=== PATIENT | male | born 1950 | race Caucasian/White ===

== ENCOUNTER 2017-11-04 09:01 | Inpatient (IN) ==
[~2017-11-04 09:01] MED LIST: ACETAMINOPHEN 325 MG TABLET PO PRN; ASPIRIN 325 MG TABLET PO ONE; ASPIRIN EC 81 MG TABLET PO SCH; CARVEDILOL 3.125 MG TABLET PO SCH; DIAZEPAM 5 MG TABLET PO ONE; DOCUSATE SODIUM 100 MG CAPSULE PO SCH; FUROSEMIDE 40 MG TABLET PO SCH; LOSARTAN 25 MG TABLET PO SCH; MAGNESIUM OXIDE 400 MG TABLET PO SCH; NICOTINE 21 MG/24 HR PATCH TRANSDERM PRN; ONDANSETRON 4 MG/2 ML VIAL IV PRN; PANTOPRAZOLE 40 MG TABLET PO SCH; POTASSIUM CHLORIDE 20 MEQ TABLET PO SCH; SODIUM CHLORIDE 0.45% 1,000 ML IV SCH; SPIRONOLACTONE 25 MG TABLET PO SCH; ZALEPLON 5 MG CAPSULE PO PRN; diphenhydrAMINE CAP 25 MG CAPSULE PO ONE
[2017-11-04] MEDS ORDERED: FUROSEMIDE 40 MG TABLET PO SCH (09:30)
[2017-11-04] MEDS ORDERED: SODIUM CHLORIDE 0.45% 1,000 ML IV SCH ×2 (09:30→12:30)
[2017-11-04] MEDS ORDERED: ONDANSETRON 4 MG/2 ML VIAL IV PRN (09:31)
[2017-11-04] MEDS ORDERED: NICOTINE 21 MG/24 HR PATCH TRANSDERM PRN (09:31)
[2017-11-04] MEDS ORDERED: ACETAMINOPHEN 325 MG TABLET PO PRN (09:31)
[2017-11-04 10:32] LABS: Basophils % 0.3 % (0.0-0.8); Eosinophils # 0.2 10*3/uL (0.0-0.87); Eosinophils % 3.1 % (0.00-10.9); Hematocrit 42.3 VOL% (42.0-52.0); Hemoglobin 13.3 GM/DL (14.0-18.0); Immature Granulocytes % 0.3 %; Immature Granulocytes Absolute 0.02 #; Lymphocytes # 1.1 10*3/uL (1.4-4.0); Lymphocytes % 15.3 % (21.2-54.2); Mean Corpuscular HGB Conc 31.4 GM/DL (32-36); Mean Corpuscular Hemoglobin 27 PG (27-34); Mean Corpuscular Volume 85.5 FL (87-102); Mean Platelet Volume 9.5 FL (9.6-12.0); Monocytes # 0.6 10*3/uL (0.11-0.8); Monocytes % 8.2 % (1.7-12.7); Neutrophils # 5.3 10*3/uL (1.4-7.4); Neutrophils % 72.8 % (38.7-73.9); Platelet Count 222 T/CUMM (130-400); Red Blood Count 4.95 MC/CUMM (3.8-5.5); Red Cell Distribution Width 17.2 % (9.3-17.3); White Blood Count 7.2 T/CUMM (4-12)
[2017-11-04] MEDS ORDERED: DIAZEPAM 5 MG TABLET ONE (10:38)
[2017-11-04] MEDS ORDERED: ASPIRIN 325 MG TABLET ONE (10:39)
[2017-11-04] MEDS ORDERED: diphenhydrAMINE CAP 25 MG CAPSULE ONE (10:39)
[2017-11-04 11:26] LABS: Calcium 8.9 MG/DL (8.5-10.1); Osmolality,Calculated 283.3 MOS/KG (273-304); Potassium 3.5 MMOL/L (3.5-5.1); Risk Ratio 2.35; Thyroid Stimulating Hormone 1.29 uIU/ml (0.358-3.74); VLDL CHOLESTEROL 13.8 MG/DL
[2017-11-04] MEDS ORDERED: HEPARIN/NACL 0.9% 2 UNITS/ML 2,000 ML IV ONE (11:26)
[2017-11-04] MEDS ORDERED: fentaNYL 100 MCG/2 ML VIAL ONE (11:42)
[2017-11-04] MEDS ORDERED: LIDOCAINE 1% 20 ML VIAL ONE (11:42)
[2017-11-04] MEDS ORDERED: MIDAZOLAM 2 MG/2 ML VIAL ONE (11:42)
[2017-11-04] MEDS ORDERED: ALBUTEROL/IPRATROPIUM 3 ML NEB RESP TX SCH (13:00)
[2017-11-04] MEDS: ALBUTEROL/IPRATROPIUM 3 ML NEB RESP TX SCH ×2 (13:45→19:05)
[2017-11-04] MEDS: CLORAZEPATE 3.75 MG TABLET PO PRN (18:12)
[2017-11-04] MEDS: ATORVASTATIN 80 MG TABLET PO SCH (20:58)
[2017-11-04] MEDS: DOCUSATE SODIUM 100 MG CAPSULE PO SCH (20:58)
[2017-11-04] MEDS: ZALEPLON 5 MG CAPSULE PO PRN (20:58)
[2017-11-04] MEDS: MAGNESIUM OXIDE 400 MG TABLET PO SCH (20:58)
[2017-11-04] MEDS: CARVEDILOL 3.125 MG TABLET PO SCH (20:58)
[2017-11-04] MEDS: BUDESONIDE/FORMOTEROL 160-4.5 INHALER 6 GM INH SCH (20:59)
[2017-11-04] MEDS ORDERED: ATORVASTATIN 80 MG TABLET PO SCH (21:00)
[2017-11-05] MEDS: ALBUTEROL/IPRATROPIUM 3 ML NEB RESP TX SCH ×4 (00:10→20:33)
[2017-11-05 01:33] LABS: Basophils % 0.3 % (0.0-0.8); Eosinophils # 0.5 10*3/uL (0.0-0.87); Eosinophils % 7.1 % (0.00-10.9); Hematocrit 36.6 VOL% (42.0-52.0); Hemoglobin 11.8 GM/DL (14.0-18.0); Immature Granulocytes % 0.4 %; Immature Granulocytes Absolute 0.03 #; Lymphocytes # 1.4 10*3/uL (1.4-4.0); Lymphocytes % 18.6 % (21.2-54.2); Mean Corpuscular HGB Conc 32.2 GM/DL (32-36); Mean Corpuscular Hemoglobin 27 PG (27-34); Mean Corpuscular Volume 84.9 FL (87-102); Mean Platelet Volume 9.8 FL (9.6-12.0); Monocytes # 0.5 10*3/uL (0.11-0.8); Monocytes % 7.1 % (1.7-12.7); Neutrophils % 66.5 % (38.7-73.9); Platelet Count 219 T/CUMM (130-400); Red Blood Count 4.31 MC/CUMM (3.8-5.5); Red Cell Distribution Width 17.2 % (9.3-17.3); White Blood Count 7.5 T/CUMM (4-12)
[2017-11-05 01:55] LABS: Calcium 8.2 MG/DL (8.5-10.1); Osmolality,Calculated 283.3 MOS/KG (273-304); Potassium 4.2 MMOL/L (3.5-5.1)
[2017-11-05 01:58] LABS: Albumin 2.7 G/DL (3.4-5.0); Bilirubin,Direct 0.18 MG/DL (0.0-0.20); Bilirubin,Indirect 0.3 MG/DL (0.0-1.0); Bilirubin,Total 0.5 MG/DL (0.2-1.0); Total Protein 5.2 G/DL (6.4-8.3)
[2017-11-05] MEDS ORDERED: FUROSEMIDE 40 MG/4 ML VIAL IV ONE ×2 (02:48→04:37)
[2017-11-05] MEDS ORDERED: hydrALAZINE 20 MG/1 ML VIAL IV ONE (02:48)
[2017-11-05] MEDS ORDERED: hydrALAZINE 20 MG/1 ML VIAL IV PRN (02:49)
[2017-11-05] MEDS ORDERED: FUROSEMIDE 40 MG/4 ML VIAL ONE (02:51)
[2017-11-05] MEDS ORDERED: LEVALBUTEROL 1.25 MG/3 ML NEB RESP TX PRN (03:05)
[2017-11-05] MEDS: CLORAZEPATE 3.75 MG TABLET PO PRN ×3 (03:20→21:44)
[2017-11-05 03:27] LABS: ABG Base Excess 4.9 MMOL/L (-2.5-2.5); ABG HCO3 28.8 MMOL/L (20-26); ABG Oxygen Saturation 94.8 % (95-100); ABG PCO2 67.6 MM HG (35-48); ABG PH 7.309 (7.35-7.45); ABG PO2 77.8 MM HG (80-95); ABG TCO2 29.9 MMOL/L (23-27)
[2017-11-05 03:38] LABS: Calcium 8.6 MG/DL (8.5-10.1); Osmolality,Calculated 283.4 MOS/KG (273-304); Potassium 4.3 MMOL/L (3.5-5.1)
[2017-11-05] MEDS ORDERED: NITROGLYCERIN SL 0.4 MG TABLET SL PRN (04:58)
[2017-11-05] MEDS ORDERED: ASPIRIN CHEW 81 MG TABLET PO ONE (04:58)
[2017-11-05] MEDS ORDERED: NITROGLYCERIN DRIP 50 MG/250 ML BOTTLE IV ONE (05:05)
[2017-11-05] MEDS: NITROGLYCERIN DRIP 50 MG/250 ML BOTTLE IV SCH (05:10)
[2017-11-05 06:24] LABS: Basophils % 0.4 % (0.0-0.8); Eosinophils # 0.7 10*3/uL (0.0-0.87); Eosinophils % 5.9 % (0.00-10.9); Hematocrit 43.6 VOL% (42.0-52.0); Hemoglobin 13.4 GM/DL (14.0-18.0); Immature Granulocytes % 0.4 %; Immature Granulocytes Absolute 0.04 #; Lymphocytes # 1.1 10*3/uL (1.4-4.0); Lymphocytes % 9.7 % (21.2-54.2); Mean Corpuscular HGB Conc 30.7 GM/DL (32-36); Mean Corpuscular Hemoglobin 27 PG (27-34); Mean Corpuscular Volume 87.4 FL (87-102); Mean Platelet Volume 9.5 FL (9.6-12.0); Monocytes # 0.8 10*3/uL (0.11-0.8); Monocytes % 7.5 % (1.7-12.7); Neutrophils # 8.5 10*3/uL (1.4-7.4); Neutrophils % 76.1 % (38.7-73.9); Platelet Count 245 T/CUMM (130-400); Red Blood Count 4.99 MC/CUMM (3.8-5.5); Red Cell Distribution Width 17.2 % (9.3-17.3); White Blood Count 11.2 T/CUMM (4-12)
[2017-11-05 06:48] LABS: Albumin 3.4 G/DL (3.4-5.0); Calcium 8.9 MG/DL (8.5-10.1); Osmolality,Calculated 281.4 MOS/KG (273-304); Potassium 4.3 MMOL/L (3.5-5.1); Total Protein 6.5 G/DL (6.4-8.3)
[2017-11-05] MEDS: CARVEDILOL 3.125 MG TABLET PO SCH ×2 (08:08→21:44)
[2017-11-05] MEDS: FUROSEMIDE 40 MG/4 ML VIAL IV SCH ×2 (08:08→16:33)
[2017-11-05] MEDS: PANTOPRAZOLE 40 MG TABLET PO SCH (08:08)
[2017-11-05] MEDS: MAGNESIUM OXIDE 400 MG TABLET PO SCH ×2 (08:08→21:44)
[2017-11-05] MEDS: LOSARTAN 25 MG TABLET PO SCH (08:09)
[2017-11-05] MEDS: POTASSIUM CHLORIDE 20 MEQ TABLET PO SCH (08:09)
[2017-11-05] MEDS: ENOXAPARIN 40 MG/0.4 ML SYRINGE SUBCUT SCH (08:09)
[2017-11-05] MEDS: SPIRONOLACTONE 25 MG TABLET PO SCH (08:09)
[2017-11-05] MEDS: ASPIRIN EC 81 MG TABLET PO SCH (08:09)
[2017-11-05] MEDS: DOCUSATE SODIUM 100 MG CAPSULE PO SCH ×2 (09:10→21:44)
[2017-11-05 10:50] LABS: Apearance,Urine CLEAR (Clear); Bilirubin,Urine Negative (Negative); Blood, Urine Moderate mg/dL (Negative); Glucose,Urine (UA) Negative (Negative); Ketones,Urine Negative (Negative); Nitrite,Urine Negative (Negative); Protein,Urine Negative; RBC,Urine 19 /HPF (0-4); Urine Color Colorless (Yellow); Urine Specific Gravity 1.004 (1.001-1.035); Urine Urobilinogen < 2.0 EU/DL (0.2-1.0); WBC,Urine <1 /HPF (0-6)
[2017-11-05] MEDS: BUDESONIDE/FORMOTEROL 160-4.5 INHALER 6 GM INH SCH ×2 (12:15→21:44)
[2017-11-05] MEDS: methylPREDNISolone SOD SUC 40 MG/1 ML VIAL IV SCH ×2 (12:16→18:38)
[2017-11-05] MEDS: ATORVASTATIN 80 MG TABLET PO SCH (21:44)
[2017-11-05] MEDS: ZALEPLON 5 MG CAPSULE PO PRN (21:44)
[2017-11-06] MEDS: ALBUTEROL/IPRATROPIUM 3 ML NEB RESP TX SCH ×4 (00:16→19:14)
[2017-11-06] MEDS: methylPREDNISolone SOD SUC 40 MG/1 ML VIAL IV SCH ×3 (02:36→19:45)
[2017-11-06 05:07] LABS: Hematocrit 35.2 VOL% (42.0-52.0); Hemoglobin 11.1 GM/DL (14.0-18.0); Immature Granulocytes % 0.5 %; Immature Granulocytes Absolute 0.04 #; Lymphocytes # 0.6 10*3/uL (1.4-4.0); Lymphocytes % 7.1 % (21.2-54.2); Mean Corpuscular HGB Conc 31.5 GM/DL (32-36); Mean Corpuscular Hemoglobin 27 PG (27-34); Mean Corpuscular Volume 85.2 FL (87-102); Mean Platelet Volume 9.5 FL (9.6-12.0); Monocytes # 0.2 10*3/uL (0.11-0.8); Monocytes % 2.8 % (1.7-12.7); Neutrophils # 7.1 10*3/uL (1.4-7.4); Neutrophils % 89.6 % (38.7-73.9); Platelet Count 197 T/CUMM (130-400); Red Blood Count 4.13 MC/CUMM (3.8-5.5); Red Cell Distribution Width 16.9 % (9.3-17.3); White Blood Count 7.9 T/CUMM (4-12)
[2017-11-06] MEDS: NITROGLYCERIN DRIP 50 MG/250 ML BOTTLE IV SCH (05:41)
[2017-11-06 05:44] LABS: Calcium 8.4 MG/DL (8.5-10.1); Osmolality,Calculated 285.4 MOS/KG (273-304); Potassium 4.2 MMOL/L (3.5-5.1)
[2017-11-06] MEDS: ENOXAPARIN 40 MG/0.4 ML SYRINGE SUBCUT SCH (07:39)
[2017-11-06] MEDS: CLORAZEPATE 3.75 MG TABLET PO PRN ×2 (07:39→20:53)
[2017-11-06] MEDS: FUROSEMIDE 40 MG/4 ML VIAL IV SCH ×2 (07:39→16:32)
[2017-11-06] MEDS: DOCUSATE SODIUM 100 MG CAPSULE PO SCH ×2 (09:28→20:48)
[2017-11-06] MEDS: MAGNESIUM OXIDE 400 MG TABLET PO SCH ×2 (09:28→20:49)
[2017-11-06] MEDS: SPIRONOLACTONE 25 MG TABLET PO SCH (09:28)
[2017-11-06] MEDS: ASPIRIN EC 81 MG TABLET PO SCH (09:28)
[2017-11-06] MEDS: PANTOPRAZOLE 40 MG TABLET PO SCH (09:28)
[2017-11-06] MEDS: LOSARTAN 25 MG TABLET PO SCH (09:28)
[2017-11-06] MEDS: CARVEDILOL 3.125 MG TABLET PO SCH (09:28)
[2017-11-06] MEDS: POTASSIUM CHLORIDE 20 MEQ TABLET PO SCH (09:29)
[2017-11-06] MEDS: BUDESONIDE/FORMOTEROL 160-4.5 INHALER 6 GM INH SCH ×2 (09:31→20:50)
[2017-11-06] MEDS: ISOSORBIDE MONONITRATE 30 MG TABLET PO SCH (11:21)
[2017-11-06] MEDS: CARVEDILOL 6.25 MG TABLET PO SCH (20:49)
[2017-11-06] MEDS: ATORVASTATIN 80 MG TABLET PO SCH (20:49)
[2017-11-06] MEDS: ZALEPLON 5 MG CAPSULE PO PRN (22:12)
[2017-11-07] MEDS: ALBUTEROL/IPRATROPIUM 3 ML NEB RESP TX SCH ×4 (01:43→18:30)
[2017-11-07 02:45] LABS: Hematocrit 33.8 VOL% (42.0-52.0); Immature Granulocytes % 0.5 %; Immature Granulocytes Absolute 0.04 #; Lymphocytes # 0.5 10*3/uL (1.4-4.0); Lymphocytes % 5.5 % (21.2-54.2); Mean Corpuscular HGB Conc 32.5 GM/DL (32-36); Mean Corpuscular Hemoglobin 27 PG (27-34); Mean Corpuscular Volume 83.9 FL (87-102); Monocytes # 0.2 10*3/uL (0.11-0.8); Monocytes % 2.1 % (1.7-12.7); Neutrophils # 7.6 10*3/uL (1.4-7.4); Neutrophils % 91.9 % (38.7-73.9); Platelet Count 210 T/CUMM (130-400); Red Blood Count 4.03 MC/CUMM (3.8-5.5); Red Cell Distribution Width 16.9 % (9.3-17.3); White Blood Count 8.3 T/CUMM (4-12)
[2017-11-07] MEDS: methylPREDNISolone SOD SUC 40 MG/1 ML VIAL IV SCH ×3 (02:57→18:27)
[2017-11-07 03:38] LABS: Band Neutrophils 3 % (0-10); Lymphocytes 3 % (20-55); Segmented Neutrophils 94 % (50-85); Total Cells Counted 100
[2017-11-07 03:41] LABS: Elliptocytes 1+; Hypochromasia 1+
[2017-11-07 03:42] LABS: Platelet Estimate Normal
[2017-11-07 03:52] LABS: Calcium 8.6 MG/DL (8.5-10.1); Osmolality,Calculated 291.5 MOS/KG (273-304); Potassium 4.5 MMOL/L (3.5-5.1)
[2017-11-07] MEDS: ENOXAPARIN 40 MG/0.4 ML SYRINGE SUBCUT SCH (08:37)
[2017-11-07] MEDS: MAGNESIUM OXIDE 400 MG TABLET PO SCH ×2 (08:38→21:09)
[2017-11-07] MEDS: LOSARTAN 25 MG TABLET PO SCH (08:38)
[2017-11-07] MEDS: SPIRONOLACTONE 25 MG TABLET PO SCH (08:38)
[2017-11-07] MEDS: ISOSORBIDE MONONITRATE 30 MG TABLET PO SCH (08:38)
[2017-11-07] MEDS: CARVEDILOL 6.25 MG TABLET PO SCH ×2 (08:38→21:09)
[2017-11-07] MEDS: DOCUSATE SODIUM 100 MG CAPSULE PO SCH ×2 (08:38→21:09)
[2017-11-07] MEDS: ASPIRIN EC 81 MG TABLET PO SCH (08:38)
[2017-11-07] MEDS: POTASSIUM CHLORIDE 20 MEQ TABLET PO SCH (08:38)
[2017-11-07] MEDS: PANTOPRAZOLE 40 MG TABLET PO SCH (08:39)
[2017-11-07] MEDS: BUDESONIDE/FORMOTEROL 160-4.5 INHALER 6 GM INH SCH ×2 (08:39→21:13)
[2017-11-07] MEDS: FUROSEMIDE 40 MG/4 ML VIAL IV SCH ×2 (08:46→17:04)
[2017-11-07] MEDS: ZALEPLON 5 MG CAPSULE PO PRN (21:09)
[2017-11-07] MEDS: ATORVASTATIN 80 MG TABLET PO SCH (21:09)
[2017-11-07] MEDS: CLORAZEPATE 3.75 MG TABLET PO PRN (21:09)
[2017-11-08] MEDS: ALBUTEROL/IPRATROPIUM 3 ML NEB RESP TX SCH ×4 (03:06→19:24)
[2017-11-08] MEDS: methylPREDNISolone SOD SUC 40 MG/1 ML VIAL IV SCH ×3 (05:33→21:15)
[2017-11-08 06:15] LABS: Hematocrit 35.6 VOL% (42.0-52.0); Immature Granulocytes % 0.3 %; Immature Granulocytes Absolute 0.03 #; Lymphocytes # 0.7 10*3/uL (1.4-4.0); Lymphocytes % 7.5 % (21.2-54.2); Mean Corpuscular HGB Conc 30.9 GM/DL (32-36); Mean Corpuscular Hemoglobin 27 PG (27-34); Mean Corpuscular Volume 85.8 FL (87-102); Mean Platelet Volume 10.1 FL (9.6-12.0); Monocytes # 0.6 10*3/uL (0.11-0.8); Neutrophils # 8.1 10*3/uL (1.4-7.4); Neutrophils % 86.2 % (38.7-73.9); Platelet Count 225 T/CUMM (130-400); Red Blood Count 4.15 MC/CUMM (3.8-5.5); Red Cell Distribution Width 16.9 % (9.3-17.3); White Blood Count 9.4 T/CUMM (4-12)
[2017-11-08 06:39] LABS: Calcium 8.9 MG/DL (8.5-10.1); Osmolality,Calculated 295.3 MOS/KG (273-304); Potassium 4.6 MMOL/L (3.5-5.1)
[2017-11-08] MEDS: FUROSEMIDE 40 MG/4 ML VIAL IV SCH ×2 (08:50→16:32)
[2017-11-08] MEDS: DOCUSATE SODIUM 100 MG CAPSULE PO SCH ×2 (08:52→21:15)
[2017-11-08] MEDS: PANTOPRAZOLE 40 MG TABLET PO SCH (08:52)
[2017-11-08] MEDS: ENOXAPARIN 40 MG/0.4 ML SYRINGE SUBCUT SCH (08:52)
[2017-11-08] MEDS: ISOSORBIDE MONONITRATE 30 MG TABLET PO SCH (08:52)
[2017-11-08] MEDS: CARVEDILOL 6.25 MG TABLET PO SCH ×2 (08:52→21:15)
[2017-11-08] MEDS: ASPIRIN EC 81 MG TABLET PO SCH (08:52)
[2017-11-08] MEDS: MAGNESIUM OXIDE 400 MG TABLET PO SCH ×2 (08:52→21:15)
[2017-11-08] MEDS: POTASSIUM CHLORIDE 20 MEQ TABLET PO SCH (08:53)
[2017-11-08] MEDS: SPIRONOLACTONE 25 MG TABLET PO SCH (08:53)
[2017-11-08] MEDS: LOSARTAN 25 MG TABLET PO SCH (08:53)
[2017-11-08] MEDS ORDERED: TAMSULOSIN 0.4 MG CAPSULE PO ONE (11:40)
[2017-11-08] MEDS: BUDESONIDE/FORMOTEROL 160-4.5 INHALER 6 GM INH SCH ×2 (12:19→21:17)
[2017-11-08] MEDS: CLORAZEPATE 3.75 MG TABLET PO PRN (19:53)
[2017-11-08] MEDS: ZALEPLON 5 MG CAPSULE PO PRN (21:15)
[2017-11-08] MEDS: TAMSULOSIN 0.4 MG CAPSULE PO SCH (21:15)
[2017-11-08] MEDS: ATORVASTATIN 80 MG TABLET PO SCH (21:15)
[2017-11-09] MEDS: ALBUTEROL/IPRATROPIUM 3 ML NEB RESP TX SCH ×3 (00:40→13:05)
[2017-11-09 03:23] LABS: Hematocrit 34.8 VOL% (42.0-52.0); Hemoglobin 11.3 GM/DL (14.0-18.0); Immature Granulocytes % 0.5 %; Immature Granulocytes Absolute 0.04 #; Lymphocytes # 0.4 10*3/uL (1.4-4.0); Lymphocytes % 5.2 % (21.2-54.2); Mean Corpuscular HGB Conc 32.5 GM/DL (32-36); Mean Corpuscular Hemoglobin 27 PG (27-34); Mean Corpuscular Volume 83.9 FL (87-102); Mean Platelet Volume 10.6 FL (9.6-12.0); Monocytes # 0.3 10*3/uL (0.11-0.8); Monocytes % 3.7 % (1.7-12.7); Neutrophils % 90.6 % (38.7-73.9); Platelet Count 228 T/CUMM (130-400); Red Blood Count 4.15 MC/CUMM (3.8-5.5); Red Cell Distribution Width 16.8 % (9.3-17.3); White Blood Count 7.8 T/CUMM (4-12)
[2017-11-09 04:04] LABS: Calcium 8.7 MG/DL (8.5-10.1); Osmolality,Calculated 296.3 MOS/KG (273-304); Potassium 4.6 MMOL/L (3.5-5.1)
[2017-11-09 04:53] LABS: Band Neutrophils 2 % (0-10); Giant Platelets Few; Hypochromasia 1+; Lymphocytes 5 % (20-55); Platelet Estimate Adequate; Segmented Neutrophils 89 % (50-85); Total Cells Counted 100
[2017-11-09 04:54] LABS: Ovalocytes Slight
[2017-11-09] MEDS: ENOXAPARIN 40 MG/0.4 ML SYRINGE SUBCUT SCH (08:49)
[2017-11-09] MEDS: methylPREDNISolone SOD SUC 40 MG/1 ML VIAL IV SCH (08:49)
[2017-11-09] MEDS: FUROSEMIDE 40 MG/4 ML VIAL IV SCH (08:50)
[2017-11-09] MEDS: MAGNESIUM OXIDE 400 MG TABLET PO SCH (08:51)
[2017-11-09] MEDS: ISOSORBIDE MONONITRATE 30 MG TABLET PO SCH (08:51)
[2017-11-09] MEDS: POTASSIUM CHLORIDE 20 MEQ TABLET PO SCH (08:51)
[2017-11-09] MEDS: SPIRONOLACTONE 25 MG TABLET PO SCH (08:51)
[2017-11-09] MEDS: TAMSULOSIN 0.4 MG CAPSULE PO SCH (08:52)
[2017-11-09] MEDS: CARVEDILOL 6.25 MG TABLET PO SCH (08:52)
[2017-11-09] MEDS: DOCUSATE SODIUM 100 MG CAPSULE PO SCH (08:52)
[2017-11-09] MEDS: ASPIRIN EC 81 MG TABLET PO SCH (08:52)
[2017-11-09] MEDS: BUDESONIDE/FORMOTEROL 160-4.5 INHALER 6 GM INH SCH (09:00)
[2017-11-09] MEDS: LOSARTAN 25 MG TABLET PO SCH (14:12)
[2017-11-09] MEDS: PANTOPRAZOLE 40 MG TABLET PO SCH (14:12)
[2017-11-09] MEDS ORDERED: FUROSEMIDE 40 MG TABLET PO SCH (16:00)
[2017-11-09 16:29] VITALS: BP 144/62
== END 2017-11-09 16:30 | disposition home or self-care (01) | DRG 286 ==
LOC: N.TELEN 09:01 → N.CL 09:01 → EDSTATUS 11:00 → N.TELEN 14:49 → N.CC 11-05 05:12 → N.TELES 11-06 21:52
PROVIDERS: ADMIT Internal Medicine Cardiovascular Disease; ATTEND Internal Medicine Cardiovascular Disease

== ENCOUNTER 2019-03-23 05:11 | Inpatient (IN) ==
[2019-03-22 12:14] LABS: Basophils # 0.1 10*3/uL (0.0-0.2); Basophils % 0.8 % (0.0-0.8); Eosinophils # 0.5 10*3/uL (0.0-0.87); Eosinophils % 7.6 % (0.00-10.9); Hematocrit 35.8 VOL% (42.0-52.0); Immature Granulocytes % 0.3 %; Immature Granulocytes Absolute 0.02 #; Lymphocytes # 1.4 10*3/uL (1.4-4.0); Lymphocytes % 23.5 % (21.2-54.2); Mean Corpuscular HGB Conc 30.7 GM/DL (32-36); Mean Corpuscular Volume 95.2 FL (87-102); Mean Platelet Volume 9.4 FL (9.6-12.0); Monocytes % 8.6 % (1.7-12.7); Neutrophils % 59.2 % (38.7-73.9); Platelet Count 184 T/CUMM (130-400); Red Blood Count 3.76 MC/CUMM (3.8-5.5); Red Cell Distribution Width 13.8 % (9.3-17.3); White Blood Count 5.9 T/CUMM (4-12)
[2019-03-22 12:25] LABS: PT Patient Result 10.9 SECS; Partial Thromboplastin Time 27.6 SECS (0-40)
[2019-03-22 12:29] LABS: Apearance,Urine CLEAR (Clear); Bilirubin,Urine Negative (Negative); Blood, Urine Negative (Negative); Glucose,Urine (UA) Negative (Negative); Ketones,Urine Negative (Negative); Nitrite,Urine Negative (Negative); Protein,Urine Negative; Squamous Epithelial Cell,Urine Occasional /HPF (0-10); Urine Color Yellow (Yellow); Urine Specific Gravity 1.016 (1.001-1.035); Urine Urobilinogen < 2.0 EU/DL (0.2-1.0); WBC,Urine <1 /HPF (0-6)
[2019-03-22 13:00] LABS: Calcium 9.2 MG/DL (8.5-10.1); Osmolality,Calculated 285.3 MOS/KG (273-304)
[~2019-03-23 05:11] MED LIST changes: -ACETAMINOPHEN 325 MG TABLET PO PRN; -ASPIRIN 325 MG TABLET PO ONE; -ASPIRIN EC 81 MG TABLET PO SCH; -CARVEDILOL 3.125 MG TABLET PO SCH; +CEFUROXIME 1,500 MG VIAL ONE; -DIAZEPAM 5 MG TABLET PO ONE; -DOCUSATE SODIUM 100 MG CAPSULE PO SCH; -FUROSEMIDE 40 MG TABLET PO SCH; -LOSARTAN 25 MG TABLET PO SCH; -MAGNESIUM OXIDE 400 MG TABLET PO SCH; -NICOTINE 21 MG/24 HR PATCH TRANSDERM PRN; -ONDANSETRON 4 MG/2 ML VIAL IV PRN; -PANTOPRAZOLE 40 MG TABLET PO SCH; +PAPAVERINE 60 MG/2 ML VIAL ONE; -POTASSIUM CHLORIDE 20 MEQ TABLET PO SCH; -SODIUM CHLORIDE 0.45% 1,000 ML IV SCH; +SODIUM CHLORIDE 0.9% 1,000 ML IV PRN; -SPIRONOLACTONE 25 MG TABLET PO SCH; +TISSUE ADHESIVE 1 EACH APPLICATOR TOP ONE; +VANCOMYCIN 1,000 MG VIAL ONE; -ZALEPLON 5 MG CAPSULE PO PRN; -diphenhydrAMINE CAP 25 MG CAPSULE PO ONE
[2019-03-23] MEDS ORDERED: CEFUROXIME INJ 1,500 MG in SYRINGE 1 EACH IV ONE (06:00)
[2019-03-23] MEDS ORDERED: FAMOTIDINE 20 MG TABLET ONE (06:05)
[2019-03-23] MEDS ORDERED: DIAZEPAM 5 MG TABLET ONE (06:05)
[2019-03-23] MEDS ORDERED: MIDAZOLAM 10 MG/2 ML VIAL ONE (06:06)
[2019-03-23] MEDS ORDERED: CEFUROXIME 1,500 MG VIAL ONE (06:06)
[2019-03-23] MEDS ORDERED: DIAZEPAM 5 MG TABLET PO ONE (06:41)
[2019-03-23] MEDS ORDERED: FAMOTIDINE 20 MG TABLET PO ONE (06:42)
[2019-03-23] MEDS ORDERED: LACTATED RINGERS 1,000 ML IV SCH (07:00)
[2019-03-23] MEDS ORDERED: NITROPRUSSIDE 50 MG/2 ML VIAL ONE (07:15)
[2019-03-23] MEDS ORDERED: CALCIUM CHLORIDE 1,000 MG/10 ML SYRINGE IV ONE (07:15)
[2019-03-23] MEDS ORDERED: SODIUM BICARBONATE 50 MEQ/50 ML VIAL IV ONE ×3 (07:15→13:55)
[2019-03-23] MEDS ORDERED: PHENYLEPHRINE DRIP 40 MG/250 ML PREMIX IV ONE (07:15)
[2019-03-23] MEDS ORDERED: POTASSIUM CHLORIDE RIDER 100 ML IV ONE (07:15)
[2019-03-23 07:46] LABS: ABG Base Excess 2.5 MMOL/L (-2.5-2.5); ABG HCO3 28.1 MMOL/L (20-26); ABG PH 7.385 (7.35-7.45); ABG PO2 551.6 MM HG (80-95); ABG TCO2 29.6 MMOL/L (23-27); Glucose Heart Surgery 89 MG/DL (74-106); Hemoglobin Heart Surgery 10.1 G/DL (14.0-18.0); Ionized Calcium Arterial 1.18 MMOL/L (1.21-1.46); PH Patient Temp Arterial 7.385; PO2 Patient Temp Arterial 551.6 MM HG; Patient Temperature 37 CELCIUS; Potassium Heart/CVR 3.9 MMOL/L (3.5-5.1); Sodium Heart/CVR 139 MMOL/L (135-145)
[2019-03-23 08:41] LABS: Apearance,Urine CLEAR (Clear); Bilirubin,Urine Negative (Negative); Blood, Urine Negative (Negative); Glucose,Urine (UA) Negative (Negative); Ketones,Urine Negative (Negative); Nitrite,Urine Negative (Negative); Protein,Urine Negative; RBC,Urine 1 /HPF (0-4); Urine Color Yellow (Yellow); Urine Specific Gravity 1.013 (1.001-1.035); Urine Urobilinogen < 2.0 EU/DL (0.2-1.0); WBC,Urine 1 /HPF (0-6)
[2019-03-23] MEDS ORDERED: PHENYLEPHRINE DRIP 20 MG/250 ML PREMIX IV ONE (08:54)
[2019-03-23] MEDS ORDERED: ePHEDrine 50 MG/ML AMP ONE (08:54)
[2019-03-23] MEDS ORDERED: HEPARIN/NACL 0.9% 2 UNITS/ML 500 ML IV ONE (08:55)
[2019-03-23] MEDS ORDERED: AMINOCAPROIC ACID 5,000 MG/20 ML VIAL ONE (08:55)
[2019-03-23] MEDS ORDERED: NITROGLYCERIN DRIP 50 MG/250 ML BOTTLE IV ONE (08:55)
[2019-03-23 09:10] LABS: Hematocrit Heart Surgery 24.8 PERCENT (42-52); PCO2 Patient Temp Venous 34.7 MM HG; PH Patient Temp Venous 7.48; PO2 Patient Temp Venous 30.9 MM HG; Potassium Heart/CVR 4.8 MMOL/L (3.5-5.1); VBG Base Excess 2.7 MEQ/L (0-4); VBG HCO3 26.5 MEQ/L (24-28); VBG Oxygen Saturation 78.8 %; VBG PCO2 40.1 MMHG (41-51); VBG PH 7.436; VBG PO2 38.1 MMHG (17-40)
[2019-03-23 09:41] LABS: Hematocrit Heart Surgery 25.4 PERCENT (42-52); Hemoglobin Heart Surgery 8.2 G/DL (14.0-18.0); PH Patient Temp Venous 7.458; PO2 Patient Temp Venous 33.2 MM HG; Potassium Heart/CVR 5.2 MMOL/L (3.5-5.1); VBG Base Excess 3.5 MEQ/L (0-4); VBG HCO3 27.2 MEQ/L (24-28); VBG PH 7.458; VBG PO2 33.2 MMHG (17-40)
[2019-03-23] MEDS ORDERED: THROMBIN TOPICAL (RECOMBINANT) 5,000 UNIT VIAL TOP ONE (10:05)
[2019-03-23 10:17] LABS: ABG Base Excess 1.1 MMOL/L (-2.5-2.5); ABG HCO3 25.5 MMOL/L (20-26); ABG PCO2 44.5 MM HG (35-48); ABG PH 7.382 (7.35-7.45); ABG TCO2 24.2 MMOL/L (23-27); Glucose Heart Surgery 216 MG/DL (74-106); Hematocrit Heart Surgery 30.2 PERCENT (42-52); Hemoglobin Heart Surgery 9.7 G/DL (14.0-18.0); Ionized Calcium Arterial 1.31 MMOL/L (1.21-1.46); PCO2 Patient Temp Arterial 44.5 MMHG; PH Patient Temp Arterial 7.382; Patient Temperature 37 CELCIUS; Potassium Heart/CVR 4.4 MMOL/L (3.5-5.1); Sodium Heart/CVR 132 MMOL/L (135-145)
[2019-03-23] MEDS ORDERED: DEXTROSE 5% KCL 20 MEQ 20 MEQ/1,000 ML BAG IV ONE (10:36)
[2019-03-23] MEDS ORDERED: MANNITOL 100 GM/500 ML BAG IV ONE (10:36)
[2019-03-23] MEDS ORDERED: ALBUMIN 25% 25 GM/100 ML VIAL IV ONE (10:36)
[2019-03-23] MEDS ORDERED: FUROSEMIDE 20 MG/2 ML VIAL ONE (10:37)
[2019-03-23] MEDS ORDERED: PROTAMINE SULFATE 250 MG/25 ML VIAL IV ONE (10:37)
[2019-03-23] MEDS ORDERED: MAGNESIUM SULFATE 5 GM/10 ML VIAL IV ONE (10:37)
[2019-03-23] MEDS ORDERED: HEPARIN 10,000 UNIT/10 ML VIAL ONE (10:37)
[2019-03-23] MEDS ORDERED: methylPREDNISolone SOD SUC 1,000 MG/8 ML VIAL ONE (10:37)
[2019-03-23] MEDS ORDERED: MANNITOL 12.5 GM/50 ML VIAL IV ONE (10:37)
[2019-03-23] MEDS ORDERED: AMIODARONE INJ 450 MG in DEXTROSE 5% 241 ML IV SCH (11:00)
[2019-03-23] MEDS ORDERED: DEXTROSE 50% 25 GM/50 ML VIAL IV PRN ×2 (11:01)
[2019-03-23] MEDS ORDERED: SODIUM CHLORIDE 0.9% 250 ML IV PRN (11:01)
[2019-03-23] MEDS ORDERED: INSULIN REGULAR 100 UNIT/ML IV PRN (11:01)
[2019-03-23] MEDS ORDERED: CALCIUM CHLORIDE 1,000 MG/10 ML SYRINGE IV PRN (11:01)
[2019-03-23] MEDS ORDERED: ACETAMINOPHEN 650 MG SUPP RECTAL PRN (11:01)
[2019-03-23] MEDS ORDERED: CHLORHEXIDINE 4% SOLN 118 ML BOTTLE TOP PRN (11:01)
[2019-03-23] MEDS ORDERED: MAGNESIUM SULF RIDER 4 GM in PREMIX 1 EACH IV PRN (11:01)
[2019-03-23] MEDS ORDERED: INSULIN REGULAR DRIP 100 ML IV SCH (11:30)
[2019-03-23] MEDS ORDERED: SEVOFLURANE 1 UNIT/15 MINUTE INH ONE (11:33)
[2019-03-23] MEDS ORDERED: VECURONIUM 10 MG VIAL IV ONE ×2 (11:33→11:36)
[2019-03-23] MEDS ORDERED: ETOMIDATE 40 MG/20 ML VIAL IV ONE (11:33)
[2019-03-23] MEDS ORDERED: CALCIUM CHLORIDE 1,000 MG/10 ML VIAL IV ONE (11:33)
[2019-03-23] MEDS ORDERED: AMIODARONE 150 MG/3 ML VIAL ONE (11:33)
[2019-03-23] MEDS ORDERED: MINERAL OIL/PETROLATUM OPH OINT 3.5 GM TUBE ONE (11:34)
[2019-03-23] MEDS ORDERED: SODIUM CHLORIDE 0.9% 1,000 ML IV ONE (11:34)
[2019-03-23] MEDS ORDERED: SODIUM CHLORIDE 0.9% 100 ML IV ONE (11:34)
[2019-03-23] MEDS ORDERED: GLYCOPYRROLATE 0.4 MG/2 ML VIAL ONE (11:34)
[2019-03-23] MEDS ORDERED: LACTATED RINGERS 1,000 ML IV ONE (11:34)
[2019-03-23] MEDS ORDERED: SODIUM CHLORIDE 0.9% 500 ML IV ONE (11:34)
[2019-03-23] MEDS ORDERED: ASPIRIN 325 MG TABLET PO ONE (11:55)
[2019-03-23 12:10] LABS: ABG Base Excess -0.2 MMOL/L (-2.5-2.5); ABG HCO3 29.1 MMOL/L (20-26); ABG Oxygen Saturation 97.9 % (95-100); ABG PH 7.216 (7.35-7.45); ABG PO2 153.6 MM HG (80-95); ABG TCO2 31.3 MMOL/L (23-27); Glucose Heart Surgery 175 MG/DL (74-106); Hemoglobin Heart Surgery 11.7 G/DL (14.0-18.0); Potassium Heart/CVR 4.1 MMOL/L (3.5-5.1)
[2019-03-23 12:11] LABS: ABG PCO2 73.3 MM HG (35-48)
[2019-03-23 12:13] LABS: Basophils # 0.1 10*3/uL (0.0-0.2); Basophils % 0.5 % (0.0-0.8); Eosinophils # 0.5 10*3/uL (0.0-0.87); Eosinophils % 3.9 % (0.00-10.9); Hematocrit 33.9 VOL% (42.0-52.0); Hemoglobin 10.6 GM/DL (14.0-18.0); Immature Granulocytes % 0.7 %; Immature Granulocytes Absolute 0.09 #; Lymphocytes # 1.4 10*3/uL (1.4-4.0); Lymphocytes % 11.3 % (21.2-54.2); Mean Corpuscular HGB Conc 31.3 GM/DL (32-36); Mean Corpuscular Volume 95.5 FL (87-102); Mean Platelet Volume 9.9 FL (9.6-12.0); Monocytes % 5.2 % (1.7-12.7); Neutrophils % 78.4 % (38.7-73.9); Platelet Count 163 T/CUMM (130-400); Red Blood Count 3.55 MC/CUMM (3.8-5.5); Red Cell Distribution Width 13.3 % (9.3-17.3); White Blood Count 12.6 T/CUMM (4-12)
[2019-03-23] MEDS: SODIUM CHLORIDE 0.45% 1,000 ML IV SCH ×3 (12:16→23:40)
[2019-03-23 12:22] LABS: INR 1.1; Partial Thromboplastin Time 29.7 SECS (0-40)
[2019-03-23 12:31] LABS: Calcium 8.5 MG/DL (8.5-10.1); Osmolality,Calculated 284.7 MOS/KG (273-304)
[2019-03-23] MEDS: ALBUMIN 5% 12.5 GM in PREMIX 1 EACH IV PRN ×3 (12:38→15:14)
[2019-03-23] MEDS: MAGNESIUM SULF RIDER 2 GM in PREMIX 1 EACH IV PRN (12:38)
[2019-03-23] MEDS ORDERED: PHENYLEPHRINE DRIP 40 MG/250 ML PREMIX IV PRN (12:52)
[2019-03-23] MEDS: SODIUM CHLORIDE 0.9% 1,000 ML IV PRN ×2 (13:00→18:32)
[2019-03-23 13:28] LABS: ABG Base Excess -4.9 MMOL/L (-2.5-2.5); ABG HCO3 20.3 MMOL/L (20-26); ABG PO2 99.6 MM HG (80-95); Glucose Heart Surgery 173 MG/DL (74-106); Hematocrit Heart Surgery 29.4 PERCENT (42-52); Hemoglobin Heart Surgery 9.5 G/DL (14.0-18.0); Potassium Heart/CVR 3.8 MMOL/L (3.5-5.1)
[2019-03-23 13:34] LABS: ABG PH 7.151 (7.35-7.45)
[2019-03-23] MEDS: POTASSIUM CHLORIDE RIDER 20 MEQ in PREMIX 1 EACH IV PRN ×3 (13:43→20:26)
[2019-03-23] MEDS: ALBUTEROL/IPRATROPIUM 3 ML NEB RESP TX SCH ×4 (14:05→23:12)
[2019-03-23 14:27] LABS: ABG Base Excess 0.5 MMOL/L (-2.5-2.5); ABG HCO3 24.9 MMOL/L (20-26); ABG Oxygen Saturation 99.4 % (95-100); ABG PCO2 51.6 MM HG (35-48); ABG PH 7.328 (7.35-7.45); ABG TCO2 24.9 MMOL/L (23-27); Glucose Heart Surgery 167 MG/DL (74-106); Hematocrit Heart Surgery 30.4 PERCENT (42-52); Hemoglobin Heart Surgery 9.8 G/DL (14.0-18.0); Potassium Heart/CVR 4.6 MMOL/L (3.5-5.1)
[2019-03-23] MEDS ORDERED: LACTATED RINGERS 500 ML IV ONE (16:00)
[2019-03-23] MEDS: AMIODARONE INJ 450 MG in DEXTROSE 5% 241 ML IV SCH ×2 (16:00→21:04)
[2019-03-23] MEDS: CEFUROXIME INJ 1,500 MG in SYRINGE 1 EACH IV SCH (18:25)
[2019-03-23 19:46] LABS: ABG Base Excess -0.3 MMOL/L (-2.5-2.5); ABG HCO3 24.2 MMOL/L (20-26); ABG Oxygen Saturation 99.5 % (95-100); ABG PCO2 47.4 MM HG (35-48); ABG PH 7.341 (7.35-7.45); ABG TCO2 23.8 MMOL/L (23-27); Glucose Heart Surgery 110 MG/DL (74-106); Hematocrit Heart Surgery 27.8 PERCENT (42-52); Hemoglobin Heart Surgery 8.9 G/DL (14.0-18.0); Potassium Heart/CVR 3.9 MMOL/L (3.5-5.1)
[2019-03-23 21:51] LABS: ABG Base Excess -2.6 MMOL/L (-2.5-2.5); ABG HCO3 22.3 MMOL/L (20-26); ABG Oxygen Saturation 98.3 % (95-100); ABG PCO2 60.9 MM HG (35-48); ABG PH 7.235 (7.35-7.45); ABG TCO2 24.1 MMOL/L (23-27); Glucose Heart Surgery 116 MG/DL (74-106); Hematocrit Heart Surgery 29.2 PERCENT (42-52); Hemoglobin Heart Surgery 9.4 G/DL (14.0-18.0); Potassium Heart/CVR 4.5 MMOL/L (3.5-5.1)
[2019-03-23] MEDS: CHLORHEXIDINE 0.12% ORAL RINSE 60 ML BOTTLE SWISH/SPIT SCH (22:10)
[2019-03-23] MEDS: MORPHINE 4 MG/1 ML VIAL IV PRN (22:14)
[2019-03-23] MEDS: POTASSIUM CHLORIDE RIDER 10 MEQ in PREMIX 1 EACH IV PRN (22:44)
[2019-03-23] MEDS: MIDAZOLAM 2 MG/2 ML VIAL IV PRN (23:34)
[2019-03-24] MEDS ORDERED: DEXTROSE 10% 250 ML BAG IV ONE (00:44)
[2019-03-24] MEDS: SODIUM CHLORIDE 0.45% 1,000 ML IV SCH ×2 (00:52→10:25)
[2019-03-24] MEDS: MORPHINE 10 MG/1 ML VIAL IV PRN ×5 (01:13→23:09)
[2019-03-24] MEDS: ALBUTEROL/IPRATROPIUM 3 ML NEB RESP TX SCH ×6 (02:16→23:30)
[2019-03-24] MEDS: MIDAZOLAM 2 MG/2 ML VIAL IV PRN ×2 (02:21→07:16)
[2019-03-24 04:13] LABS: Basophils % 0.1 % (0.0-0.8); Hematocrit 27.4 VOL% (42.0-52.0); Hemoglobin 8.5 GM/DL (14.0-18.0); Immature Granulocytes % 0.7 %; Immature Granulocytes Absolute 0.08 #; Lymphocytes # 0.7 10*3/uL (1.4-4.0); Lymphocytes % 5.7 % (21.2-54.2); Mean Corpuscular Volume 96.1 FL (87-102); Mean Platelet Volume 10.2 FL (9.6-12.0); Monocytes % 5.4 % (1.7-12.7); Neutrophils % 88.1 % (38.7-73.9); Platelet Count 122 T/CUMM (130-400); Red Blood Count 2.85 MC/CUMM (3.8-5.5); Red Cell Distribution Width 13.9 % (9.3-17.3); White Blood Count 11.4 T/CUMM (4-12)
[2019-03-24 04:19] LABS: ABG Base Excess -3.1 MMOL/L (-2.5-2.5); ABG HCO3 21.8 MMOL/L (20-26); ABG Oxygen Saturation 98.8 % (95-100); ABG PCO2 50.1 MM HG (35-48); ABG PH 7.284 (7.35-7.45); ABG TCO2 22.2 MMOL/L (23-27); Glucose Heart Surgery 186 MG/DL (74-106); Potassium Heart/CVR 4.6 MMOL/L (3.5-5.1)
[2019-03-24 04:30] LABS: Calcium 7.7 MG/DL (8.5-10.1); Osmolality,Calculated 283.8 MOS/KG (273-304)
[2019-03-24 04:53] LABS: Hypochromasia 1+; Ovalocytes Slight; Platelet Estimate Adequate
[2019-03-24] MEDS: POTASSIUM CHLORIDE RIDER 10 MEQ in PREMIX 1 EACH IV PRN (05:19)
[2019-03-24] MEDS ORDERED: DIAZEPAM 5 MG TABLET PO ONE (06:00)
[2019-03-24 06:01] LABS: ABG PCO2 72.4 MM HG (35-48)
[2019-03-24] MEDS: CEFUROXIME INJ 1,500 MG in SYRINGE 1 EACH IV SCH ×2 (06:06→18:12)
[2019-03-24] MEDS: MAGNESIUM SULF RIDER 2 GM in PREMIX 1 EACH IV PRN (06:25)
[2019-03-24 09:24] LABS: ABG Base Excess -4.5 MMOL/L (-2.5-2.5); ABG HCO3 20.6 MMOL/L (20-26); ABG PH 7.221 (7.35-7.45); ABG PO2 97.6 MM HG (80-95); ABG TCO2 22.3 MMOL/L (23-27); Glucose Heart Surgery 141 MG/DL (74-106); Hematocrit Heart Surgery 30.1 PERCENT (42-52); Hemoglobin Heart Surgery 9.7 G/DL (14.0-18.0); Potassium Heart/CVR 4.9 MMOL/L (3.5-5.1)
[2019-03-24] MEDS: methylPREDNISolone SOD SUC 40 MG/1 ML VIAL IV SCH ×2 (10:16→17:03)
[2019-03-24] MEDS: PANTOPRAZOLE 40 MG VIAL IV SCH (10:17)
[2019-03-24 10:19] LABS: ABG Base Excess -5.4 MMOL/L (-2.5-2.5); ABG HCO3 19.8 MMOL/L (20-26); ABG Oxygen Saturation 88.7 % (95-100); ABG PCO2 56.2 MM HG (35-48); ABG PH 7.219 (7.35-7.45); ABG PO2 62.2 MM HG (80-95); ABG TCO2 21.4 MMOL/L (23-27); Glucose Heart Surgery 151 MG/DL (74-106); Hematocrit Heart Surgery 31.2 PERCENT (42-52); Hemoglobin Heart Surgery 10.1 G/DL (14.0-18.0); Potassium Heart/CVR 4.8 MMOL/L (3.5-5.1)
[2019-03-24] MEDS: NICOTINE 21 MG/24 HR PATCH TRANSDERM SCH (10:22)
[2019-03-24] MEDS ORDERED: CLOPIDOGREL 75 MG TABLET ONE (10:26)
[2019-03-24] MEDS: METOPROLOL TARTRATE 25 MG TABLET PO SCH ×2 (10:29→20:27)
[2019-03-24] MEDS: ASPIRIN EC 325 MG TABLET PO SCH (10:29)
[2019-03-24] MEDS: FUROSEMIDE 40 MG TABLET PO SCH (10:29)
[2019-03-24] MEDS: AMIODARONE 200 MG TABLET PO SCH ×2 (10:30→20:27)
[2019-03-24] MEDS: ATORVASTATIN 40 MG TABLET PO SCH ×2 (10:31→20:27)
[2019-03-24] MEDS: CLOPIDOGREL 75 MG TABLET PO SCH (10:31)
[2019-03-24] MEDS: CHLORHEXIDINE 0.12% ORAL RINSE 60 ML BOTTLE SWISH/SPIT SCH ×2 (10:36→20:28)
[2019-03-24] MEDS: INSULIN REGULAR 100 UNIT/ML SUBCUT SCH ×4 (12:14→20:28)
[2019-03-24] MEDS: AMIODARONE INJ 450 MG in DEXTROSE 5% 241 ML IV SCH (13:06)
[2019-03-24] MEDS ORDERED: FUROSEMIDE 40 MG/4 ML VIAL IV ONE (15:34)
[2019-03-24 16:14] LABS: ABG Base Excess -3.6 MMOL/L (-2.5-2.5); ABG Oxygen Saturation 98.3 % (95-100); ABG PCO2 55.7 MM HG (35-48); ABG PH 7.252 (7.35-7.45); ABG PO2 144.5 MM HG (80-95); ABG TCO2 25.7 MMOL/L (23-27); Glucose Heart Surgery 134 MG/DL (74-106); Hemoglobin Heart Surgery 10.7 G/DL (14.0-18.0)
[2019-03-25] MEDS: methylPREDNISolone SOD SUC 40 MG/1 ML VIAL IV SCH ×4 (00:40→23:25)
[2019-03-25] MEDS: INSULIN REGULAR 100 UNIT/ML SUBCUT SCH ×6 (01:56→21:31)
[2019-03-25] MEDS: ALBUTEROL/IPRATROPIUM 3 ML NEB RESP TX SCH ×5 (03:10→20:17)
[2019-03-25] MEDS: MORPHINE 10 MG/1 ML VIAL IV PRN (03:20)
[2019-03-25 03:28] LABS: Basophils % 0.2 % (0.0-0.8); Hemoglobin 9.3 GM/DL (14.0-18.0); Immature Granulocytes % 0.8 %; Immature Granulocytes Absolute 0.15 #; Lymphocytes # 0.5 10*3/uL (1.4-4.0); Lymphocytes % 2.8 % (21.2-54.2); Mean Corpuscular Volume 96.2 FL (87-102); Mean Platelet Volume 10.3 FL (9.6-12.0); Monocytes % 4.3 % (1.7-12.7); Neutrophils % 91.9 % (38.7-73.9); Platelet Count 135 T/CUMM (130-400); Red Blood Count 3.12 MC/CUMM (3.8-5.5)
[2019-03-25 03:56] LABS: Osmolality,Calculated 283.8 MOS/KG (273-304)
[2019-03-25 04:04] LABS: Hypochromasia 1+; Lymphocytes 2 % (20-55); Ovalocytes Slight; Platelet Estimate Adequate; Segmented Neutrophils 97 % (50-85); Total Cells Counted 100
[2019-03-25] MEDS: NICOTINE 21 MG/24 HR PATCH TRANSDERM SCH (09:37)
[2019-03-25] MEDS: ASPIRIN EC 325 MG TABLET PO SCH (09:38)
[2019-03-25] MEDS: FUROSEMIDE 40 MG TABLET PO SCH (09:38)
[2019-03-25] MEDS: CHLORHEXIDINE 0.12% ORAL RINSE 60 ML BOTTLE SWISH/SPIT SCH ×2 (09:38→21:34)
[2019-03-25] MEDS: AMIODARONE 200 MG TABLET PO SCH ×2 (09:38→21:26)
[2019-03-25] MEDS: METOPROLOL TARTRATE 25 MG TABLET PO SCH ×2 (09:38→21:26)
[2019-03-25] MEDS: PANTOPRAZOLE 40 MG VIAL IV SCH (09:39)
[2019-03-25] MEDS: CLOPIDOGREL 75 MG TABLET PO SCH (11:00)
[2019-03-25] MEDS ORDERED: BUDESONIDE/FORMOTEROL 160-4.5 INHALER 6 GM INH PRN (13:41)
[2019-03-25] MEDS ORDERED: FLUTICASONE 50 MCG NASAL SPRAY 16 GM BOTTLE BOTH NARES PRN (13:41)
[2019-03-25] MEDS: FINASTERIDE 5 MG TABLET PO SCH (17:21)
[2019-03-25] MEDS: TAMSULOSIN 0.4 MG CAPSULE PO SCH (21:26)
[2019-03-25] MEDS: clonazePAM 0.5 MG TABLET PO PRN (21:26)
[2019-03-25] MEDS: ATORVASTATIN 40 MG TABLET PO SCH (21:26)
[2019-03-25] MEDS: ZALEPLON 5 MG CAPSULE PO SCH (21:28)
[2019-03-25] MEDS ORDERED: METOPROLOL TARTRATE 5 MG/5 ML VIAL IV ONE ×2 (22:36→23:15)
[2019-03-26] MEDS: ALBUTEROL/IPRATROPIUM 3 ML NEB RESP TX SCH ×7 (00:23→23:50)
[2019-03-26] MEDS: dilTIAZem Drip 125 MG/125 ML PREMIX IV SCH ×2 (01:35→21:30)
[2019-03-26] MEDS: INSULIN REGULAR 100 UNIT/ML SUBCUT SCH ×6 (04:00→20:05)
[2019-03-26] MEDS: MORPHINE 4 MG/1 ML VIAL IV PRN (04:05)
[2019-03-26 04:54] LABS: Basophils % 0.1 % (0.0-0.8); Hematocrit 26.4 VOL% (42.0-52.0); Hemoglobin 8.5 GM/DL (14.0-18.0); Immature Granulocytes Absolute 0.09 #; Lymphocytes # 0.4 10*3/uL (1.4-4.0); Lymphocytes % 4.1 % (21.2-54.2); Mean Corpuscular HGB Conc 32.2 GM/DL (32-36); Monocytes % 5.3 % (1.7-12.7); Neutrophils % 89.5 % (38.7-73.9); Platelet Count 118 T/CUMM (130-400); Red Blood Count 2.84 MC/CUMM (3.8-5.5); Red Cell Distribution Width 13.8 % (9.3-17.3); White Blood Count 9.1 T/CUMM (4-12)
[2019-03-26 05:18] LABS: Calcium 8.3 MG/DL (8.5-10.1); Osmolality,Calculated 286.8 MOS/KG (273-304)
[2019-03-26 05:23] LABS: Lymphocytes 6 % (20-55); Segmented Neutrophils 89 % (50-85)
[2019-03-26 05:26] LABS: Anisocytosis 1+; Hypochromasia 1+; Microcytosis 1+; Ovalocytes 1+; Platelet Estimate Adequate
[2019-03-26 05:27] LABS: Total Cells Counted 100
[2019-03-26] MEDS ORDERED: MAGNESIUM HYDROXIDE SUSP 30 ML UDCUP PO ONE (09:41)
[2019-03-26] MEDS ORDERED: ONDANSETRON 4 MG/2 ML VIAL IV ONE (09:42)
[2019-03-26] MEDS: NICOTINE 21 MG/24 HR PATCH TRANSDERM SCH (10:02)
[2019-03-26] MEDS: METOPROLOL TARTRATE 25 MG TABLET PO SCH ×3 (10:03→21:22)
[2019-03-26] MEDS: ASPIRIN EC 325 MG TABLET PO SCH (10:03)
[2019-03-26] MEDS: TAMSULOSIN 0.4 MG CAPSULE PO SCH ×2 (10:03→21:22)
[2019-03-26] MEDS: CLOPIDOGREL 75 MG TABLET PO SCH (10:03)
[2019-03-26] MEDS: FUROSEMIDE 40 MG TABLET PO SCH (10:03)
[2019-03-26] MEDS: FINASTERIDE 5 MG TABLET PO SCH (10:03)
[2019-03-26] MEDS: AMIODARONE 200 MG TABLET PO SCH ×2 (10:04→21:22)
[2019-03-26] MEDS: PANTOPRAZOLE 40 MG TABLET PO SCH (10:04)
[2019-03-26] MEDS: methylPREDNISolone SOD SUC 40 MG/1 ML VIAL IV SCH ×2 (10:05→16:19)
[2019-03-26] MEDS: CHLORHEXIDINE 0.12% ORAL RINSE 60 ML BOTTLE SWISH/SPIT SCH ×2 (10:14→21:22)
[2019-03-26] MEDS: ENOXAPARIN 40 MG/0.4 ML SYRINGE SUBCUT SCH (10:24)
[2019-03-26] MEDS: DOCUSATE SODIUM 100 MG/10 ML UDCUP PO SCH ×2 (14:39→21:22)
[2019-03-26] MEDS: clonazePAM 0.5 MG TABLET PO PRN (21:21)
[2019-03-26] MEDS: ATORVASTATIN 40 MG TABLET PO SCH (21:22)
[2019-03-26] MEDS: ZALEPLON 5 MG CAPSULE PO SCH (21:22)
[2019-03-27] MEDS: methylPREDNISolone SOD SUC 40 MG/1 ML VIAL IV SCH ×4 (02:26→21:40)
[2019-03-27] MEDS: INSULIN REGULAR 100 UNIT/ML SUBCUT SCH ×6 (02:26→20:05)
[2019-03-27] MEDS: ALBUTEROL/IPRATROPIUM 3 ML NEB RESP TX SCH ×6 (03:49→23:00)
[2019-03-27 05:11] LABS: Basophils % 0.1 % (0.0-0.8); Hematocrit 25.5 VOL% (42.0-52.0); Hemoglobin 8.2 GM/DL (14.0-18.0); Immature Granulocytes % 0.5 %; Immature Granulocytes Absolute 0.04 #; Lymphocytes # 0.4 10*3/uL (1.4-4.0); Lymphocytes % 4.7 % (21.2-54.2); Mean Corpuscular HGB Conc 32.2 GM/DL (32-36); Mean Corpuscular Volume 93.1 FL (87-102); Monocytes % 4.8 % (1.7-12.7); Neutrophils % 89.9 % (38.7-73.9); Platelet Count 143 T/CUMM (130-400); Red Blood Count 2.74 MC/CUMM (3.8-5.5); Red Cell Distribution Width 14.3 % (9.3-17.3); White Blood Count 7.5 T/CUMM (4-12)
[2019-03-27 05:26] LABS: Calcium 8.3 MG/DL (8.5-10.1); Osmolality,Calculated 300.3 MOS/KG (273-304)
[2019-03-27 05:32] LABS: Lymphocytes 3 % (20-55); Segmented Neutrophils 93 % (50-85); Total Cells Counted 100
[2019-03-27 05:34] LABS: Hypochromasia 1+; Ovalocytes 1+; Platelet Estimate Normal
[2019-03-27] MEDS: ASPIRIN EC 325 MG TABLET PO SCH (08:41)
[2019-03-27] MEDS: PANTOPRAZOLE 40 MG TABLET PO SCH (08:41)
[2019-03-27] MEDS: CLOPIDOGREL 75 MG TABLET PO SCH (08:41)
[2019-03-27] MEDS: FINASTERIDE 5 MG TABLET PO SCH (08:41)
[2019-03-27] MEDS: AMIODARONE 200 MG TABLET PO SCH ×2 (08:42→21:20)
[2019-03-27] MEDS: METOPROLOL TARTRATE 50 MG TABLET PO SCH ×4 (08:42→21:19)
[2019-03-27] MEDS: FUROSEMIDE 40 MG TABLET PO SCH (08:43)
[2019-03-27] MEDS: TAMSULOSIN 0.4 MG CAPSULE PO SCH ×2 (08:43→21:19)
[2019-03-27] MEDS: DOCUSATE SODIUM 100 MG/10 ML UDCUP PO SCH ×2 (08:43→21:18)
[2019-03-27] MEDS: NICOTINE 21 MG/24 HR PATCH TRANSDERM SCH (08:44)
[2019-03-27] MEDS: ENOXAPARIN 40 MG/0.4 ML SYRINGE SUBCUT SCH (08:44)
[2019-03-27] MEDS: CHLORHEXIDINE 0.12% ORAL RINSE 60 ML BOTTLE SWISH/SPIT SCH ×2 (09:14→21:39)
[2019-03-27] MEDS: NICOTINE 7 MG/24 HR PATCH TRANSDERM SCH ×2 (12:30→16:31)
[2019-03-27] MEDS: MORPHINE 10 MG/1 ML VIAL IV PRN ×2 (14:12→14:13)
[2019-03-27] MEDS: BISACODYL 5 MG TABLET PO PRN (14:19)
[2019-03-27] MEDS: dilTIAZem Drip 125 MG/125 ML PREMIX IV SCH (16:28)
[2019-03-27] MEDS ORDERED: LIDOCAINE 2% 20 ML VIAL ONE (18:13)
[2019-03-27] MEDS ORDERED: LIDOCAINE 2% 20 ML VIAL MISC INJ ONE (18:37)
[2019-03-27] MEDS: ATORVASTATIN 40 MG TABLET PO SCH (21:19)
[2019-03-27] MEDS: clonazePAM 0.5 MG TABLET PO PRN (21:19)
[2019-03-27] MEDS: ZALEPLON 5 MG CAPSULE PO SCH (21:20)
[2019-03-28] MEDS: INSULIN REGULAR 100 UNIT/ML SUBCUT SCH ×6 (01:19→21:03)
[2019-03-28] MEDS: ALBUTEROL/IPRATROPIUM 3 ML NEB RESP TX SCH ×5 (02:29→20:10)
[2019-03-28 06:18] LABS: Hematocrit 24.2 VOL% (42.0-52.0); Hemoglobin 7.9 GM/DL (14.0-18.0); Immature Granulocytes % 0.3 %; Immature Granulocytes Absolute 0.03 #; Lymphocytes # 0.3 10*3/uL (1.4-4.0); Lymphocytes % 3.2 % (21.2-54.2); Mean Corpuscular HGB Conc 32.6 GM/DL (32-36); Mean Corpuscular Volume 94.2 FL (87-102); Mean Platelet Volume 10.7 FL (9.6-12.0); Monocytes % 6.7 % (1.7-12.7); Neutrophils % 89.8 % (38.7-73.9); Platelet Count 151 T/CUMM (130-400); Red Blood Count 2.57 MC/CUMM (3.8-5.5); Red Cell Distribution Width 14.1 % (9.3-17.3); White Blood Count 8.7 T/CUMM (4-12)
[2019-03-28 06:38] LABS: Calcium 8.4 MG/DL (8.5-10.1); Osmolality,Calculated 298.3 MOS/KG (273-304)
[2019-03-28 06:55] LABS: Band Neutrophils 2 % (0-10); Hypochromasia 1+; Lymphocytes 5 % (20-55); Platelet Estimate Adequate; Segmented Neutrophils 89 % (50-85); Total Cells Counted 100
[2019-03-28 06:56] LABS: Microcytosis 1+
[2019-03-28] MEDS: dilTIAZem Drip 125 MG/125 ML PREMIX IV SCH (08:56)
[2019-03-28] MEDS: DOCUSATE SODIUM 100 MG/10 ML UDCUP PO SCH ×2 (09:11→21:03)
[2019-03-28] MEDS: FINASTERIDE 5 MG TABLET PO SCH (09:11)
[2019-03-28] MEDS: ASCORBIC ACID 500 MG TABLET PO SCH ×2 (09:11→20:52)
[2019-03-28] MEDS: METOPROLOL TARTRATE 50 MG TABLET PO SCH ×3 (09:11→20:53)
[2019-03-28] MEDS: FUROSEMIDE 40 MG TABLET PO SCH (09:11)
[2019-03-28] MEDS: CLOPIDOGREL 75 MG TABLET PO SCH (09:11)
[2019-03-28] MEDS: NICOTINE 7 MG/24 HR PATCH TRANSDERM SCH (09:11)
[2019-03-28] MEDS: AMIODARONE 200 MG TABLET PO SCH ×2 (09:11→20:53)
[2019-03-28] MEDS: PANTOPRAZOLE 40 MG TABLET PO SCH (09:11)
[2019-03-28] MEDS: TAMSULOSIN 0.4 MG CAPSULE PO SCH ×2 (09:11→20:53)
[2019-03-28] MEDS: ASPIRIN EC 325 MG TABLET PO SCH (09:11)
[2019-03-28] MEDS: methylPREDNISolone SOD SUC 40 MG/1 ML VIAL IV SCH ×2 (09:12→20:54)
[2019-03-28] MEDS: ENOXAPARIN 40 MG/0.4 ML SYRINGE SUBCUT SCH (09:12)
[2019-03-28] MEDS: CHLORHEXIDINE 0.12% ORAL RINSE 60 ML BOTTLE SWISH/SPIT SCH ×2 (09:13→22:00)
[2019-03-28] MEDS ORDERED: LIDOCAINE 2% 20 ML VIAL MISC INJ ONE (09:30)
[2019-03-28] MEDS ORDERED: SODIUM CHLORIDE 0.9% 1,000 ML IV PRN (09:41)
[2019-03-28] MEDS: MORPHINE 10 MG/1 ML VIAL IV PRN ×3 (11:00→20:05)
[2019-03-28] MEDS: MORPHINE 4 MG/1 ML VIAL IV PRN (15:28)
[2019-03-28] MEDS ORDERED: LIDOCAINE 2% 20 ML VIAL ONE (16:08)
[2019-03-28] MEDS ORDERED: MORPHINE 4 MG/1 ML VIAL IV ONE (16:25)
[2019-03-28 19:41] LABS: ABG Base Excess 4.9 MMOL/L (-2.5-2.5); ABG HCO3 29.7 MMOL/L (20-26); ABG Oxygen Saturation 94.5 % (95-100); ABG PCO2 45.1 MM HG (35-48); ABG PH 7.436 (7.35-7.45); ABG PO2 77.7 MM HG (80-95); ABG TCO2 31.1 MMOL/L (23-27); Glucose Heart Surgery 131 MG/DL (74-106); Potassium Heart/CVR 4.5 MMOL/L (3.5-5.1)
[2019-03-28] MEDS ORDERED: LIDOCAINE 1%/EPI INJ 20 ML VIAL ONE (19:48)
[2019-03-28] MEDS: ZALEPLON 5 MG CAPSULE PO SCH (20:53)
[2019-03-28] MEDS: clonazePAM 0.5 MG TABLET PO PRN (20:53)
[2019-03-28] MEDS: ATORVASTATIN 40 MG TABLET PO SCH (20:53)
[2019-03-28 22:20] LABS: Apearance,Urine CLEAR (Clear); Bilirubin,Urine Negative (Negative); Blood, Urine Large mg/dL (Negative); Glucose,Urine (UA) Negative (Negative); Hyaline Casts,Urine 49 /LPF (0-3); Ketones,Urine Negative (Negative); Nitrite,Urine Negative (Negative); Protein,Urine Negative; RBC,Urine 2 /HPF (0-4); Squamous Epithelial Cell,Urine Occasional /HPF (0-10); Urine Color Yellow (Yellow); Urine Specific Gravity 1.011 (1.001-1.035); Urine Urobilinogen < 2.0 EU/DL (0.2-1.0); WBC,Urine <1 /HPF (0-6)
[2019-03-29] MEDS: ALBUTEROL/IPRATROPIUM 3 ML NEB RESP TX SCH ×6 (00:04→19:12)
[2019-03-29] MEDS: INSULIN REGULAR 100 UNIT/ML SUBCUT SCH ×7 (00:29→23:46)
[2019-03-29] MEDS: dilTIAZem Drip 125 MG/125 ML PREMIX IV SCH (01:30)
[2019-03-29] MEDS: MORPHINE 4 MG/1 ML VIAL IV PRN ×2 (02:24→09:37)
[2019-03-29 03:54] LABS: Hematocrit 22.6 VOL% (42.0-52.0); Hemoglobin 7.5 GM/DL (14.0-18.0); Immature Granulocytes % 0.3 %; Immature Granulocytes Absolute 0.04 #; Lymphocytes # 0.3 10*3/uL (1.4-4.0); Lymphocytes % 2.6 % (21.2-54.2); Mean Corpuscular HGB Conc 33.2 GM/DL (32-36); Mean Corpuscular Volume 91.9 FL (87-102); Mean Platelet Volume 11.3 FL (9.6-12.0); Monocytes % 5.6 % (1.7-12.7); Neutrophils % 91.5 % (38.7-73.9); Platelet Count 144 T/CUMM (130-400); Red Blood Count 2.46 MC/CUMM (3.8-5.5); Red Cell Distribution Width 13.9 % (9.3-17.3); White Blood Count 12.8 T/CUMM (4-12)
[2019-03-29 04:05] LABS: Calcium 8.5 MG/DL (8.5-10.1); Osmolality,Calculated 304.3 MOS/KG (273-304)
[2019-03-29 04:13] LABS: Hypochromasia 1+; Lymphocytes 4 % (20-55); Platelet Estimate Adequate; Segmented Neutrophils 92 % (50-85); Total Cells Counted 100
[2019-03-29 04:14] LABS: Microcytosis 1+
[2019-03-29] MEDS ORDERED: FUROSEMIDE 40 MG/4 ML VIAL IV ONE (07:09)
[2019-03-29] MEDS: PIPERACILLIN/TAZOBACTAM 3,375 MG in SODIUM CHLORIDE 0.9% 100 ML IV SCH ×3 (09:06→23:44)
[2019-03-29] MEDS: methylPREDNISolone SOD SUC 40 MG/1 ML VIAL IV SCH ×2 (09:39→21:03)
[2019-03-29] MEDS: ENOXAPARIN 40 MG/0.4 ML SYRINGE SUBCUT SCH (09:39)
[2019-03-29] MEDS: NICOTINE 7 MG/24 HR PATCH TRANSDERM SCH (09:40)
[2019-03-29] MEDS: BISACODYL 5 MG TABLET PO PRN (09:42)
[2019-03-29] MEDS: PANTOPRAZOLE 40 MG TABLET PO SCH (09:43)
[2019-03-29] MEDS: FINASTERIDE 5 MG TABLET PO SCH (09:44)
[2019-03-29] MEDS: METOPROLOL TARTRATE 50 MG TABLET PO SCH ×3 (09:44→20:55)
[2019-03-29] MEDS: TAMSULOSIN 0.4 MG CAPSULE PO SCH ×2 (09:44→20:56)
[2019-03-29] MEDS: CLOPIDOGREL 75 MG TABLET PO SCH (09:44)
[2019-03-29] MEDS: ASCORBIC ACID 500 MG TABLET PO SCH ×2 (09:44→20:55)
[2019-03-29] MEDS: FUROSEMIDE 40 MG TABLET PO SCH (09:44)
[2019-03-29] MEDS: ASPIRIN EC 325 MG TABLET PO SCH (09:44)
[2019-03-29] MEDS: DOCUSATE SODIUM 100 MG/10 ML UDCUP PO SCH ×2 (09:45→20:55)
[2019-03-29] MEDS: CHLORHEXIDINE 0.12% ORAL RINSE 60 ML BOTTLE SWISH/SPIT SCH ×2 (09:47→20:57)
[2019-03-29] MEDS: AMIODARONE 200 MG TABLET PO SCH ×2 (09:47→20:56)
[2019-03-29] MEDS ORDERED: METOPROLOL TARTRATE 5 MG/5 ML VIAL IV ONE (13:05)
[2019-03-29 18:21] LABS: Hematocrit 28.9 VOL% (42.0-52.0)
[2019-03-29 18:24] LABS: Hemoglobin 9.5 GM/DL (14.0-18.0)
[2019-03-29] MEDS: ATORVASTATIN 40 MG TABLET PO SCH (20:56)
[2019-03-29] MEDS: ZALEPLON 5 MG CAPSULE PO SCH (20:56)
[2019-03-30] MEDS: ALBUTEROL/IPRATROPIUM 3 ML NEB RESP TX SCH ×7 (00:19→23:42)
[2019-03-30] MEDS: SODIUM PHOSPHATE ENEMA 133 ML BOTTLE RECTAL ONE ×2 (01:27→02:33)
[2019-03-30] MEDS: dilTIAZem Drip 125 MG/125 ML PREMIX IV SCH (01:27)
[2019-03-30] MEDS: INSULIN REGULAR 100 UNIT/ML SUBCUT SCH ×6 (03:54→23:39)
[2019-03-30 04:03] LABS: Basophils % 0.2 % (0.0-0.8); Hematocrit 29.8 VOL% (42.0-52.0); Hemoglobin 9.8 GM/DL (14.0-18.0); Immature Granulocytes % 0.9 %; Immature Granulocytes Absolute 0.12 #; Lymphocytes # 0.4 10*3/uL (1.4-4.0); Lymphocytes % 3.2 % (21.2-54.2); Mean Corpuscular HGB Conc 32.9 GM/DL (32-36); Mean Platelet Volume 10.9 FL (9.6-12.0); Neutrophils % 91.7 % (38.7-73.9); Platelet Count 139 T/CUMM (130-400); Red Blood Count 3.35 MC/CUMM (3.8-5.5); Red Cell Distribution Width 15.3 % (9.3-17.3)
[2019-03-30 04:19] LABS: Osmolality,Calculated 307.3 MOS/KG (273-304)
[2019-03-30 04:27] LABS: Hypochromasia 1+; Lymphocytes 6 % (20-55); Platelet Estimate Normal; Segmented Neutrophils 93 % (50-85); Total Cells Counted 100
[2019-03-30 04:28] LABS: Microcytosis Slight
[2019-03-30] MEDS: POTASSIUM CHLORIDE RIDER 20 MEQ in PREMIX 1 EACH IV PRN (04:46)
[2019-03-30] MEDS: ENOXAPARIN 40 MG/0.4 ML SYRINGE SUBCUT SCH (10:09)
[2019-03-30] MEDS: PIPERACILLIN/TAZOBACTAM 3,375 MG in SODIUM CHLORIDE 0.9% 100 ML IV SCH ×2 (10:09→18:34)
[2019-03-30] MEDS: ASPIRIN EC 325 MG TABLET PO SCH (10:09)
[2019-03-30] MEDS: DOCUSATE SODIUM 100 MG/10 ML UDCUP PO SCH ×2 (10:10→21:14)
[2019-03-30] MEDS: NICOTINE 7 MG/24 HR PATCH TRANSDERM SCH (10:10)
[2019-03-30] MEDS: AMIODARONE 200 MG TABLET PO SCH ×2 (10:10→21:11)
[2019-03-30] MEDS: TAMSULOSIN 0.4 MG CAPSULE PO SCH ×2 (10:11→21:10)
[2019-03-30] MEDS: ASCORBIC ACID 500 MG TABLET PO SCH ×2 (10:11→21:12)
[2019-03-30] MEDS: FUROSEMIDE 40 MG TABLET PO SCH (10:11)
[2019-03-30] MEDS: METOPROLOL TARTRATE 50 MG TABLET PO SCH ×3 (10:12→21:10)
[2019-03-30] MEDS: FINASTERIDE 5 MG TABLET PO SCH (10:12)
[2019-03-30] MEDS: PANTOPRAZOLE 40 MG TABLET PO SCH (10:12)
[2019-03-30] MEDS: methylPREDNISolone SOD SUC 40 MG/1 ML VIAL IV SCH ×2 (10:13→21:07)
[2019-03-30] MEDS: CLOPIDOGREL 75 MG TABLET PO SCH (10:13)
[2019-03-30] MEDS: CHLORHEXIDINE 0.12% ORAL RINSE 60 ML BOTTLE SWISH/SPIT SCH ×2 (10:23→21:17)
[2019-03-30] MEDS ORDERED: clonazePAM 0.5 MG TABLET PO ONE (10:39)
[2019-03-30] MEDS: ZALEPLON 5 MG CAPSULE PO SCH (21:09)
[2019-03-30] MEDS: clonazePAM 0.5 MG TABLET PO PRN (21:09)
[2019-03-30] MEDS: ATORVASTATIN 40 MG TABLET PO SCH (21:14)
[2019-03-31] MEDS: PIPERACILLIN/TAZOBACTAM 3,375 MG in SODIUM CHLORIDE 0.9% 100 ML IV SCH ×3 (01:39→17:52)
[2019-03-31] MEDS: dilTIAZem Drip 125 MG/125 ML PREMIX IV SCH (02:05)
[2019-03-31] MEDS: ALBUTEROL/IPRATROPIUM 3 ML NEB RESP TX SCH ×6 (02:38→23:12)
[2019-03-31 03:27] LABS: Basophils % 0.1 % (0.0-0.8); Hematocrit 25.6 VOL% (42.0-52.0); Hemoglobin 8.4 GM/DL (14.0-18.0); Immature Granulocytes % 0.5 %; Immature Granulocytes Absolute 0.05 #; Lymphocytes # 0.3 10*3/uL (1.4-4.0); Lymphocytes % 2.7 % (21.2-54.2); Mean Corpuscular HGB Conc 32.8 GM/DL (32-36); Mean Corpuscular Volume 89.8 FL (87-102); Mean Platelet Volume 10.7 FL (9.6-12.0); Monocytes % 2.6 % (1.7-12.7); Neutrophils % 94.1 % (38.7-73.9); Platelet Count 115 T/CUMM (130-400); Red Blood Count 2.85 MC/CUMM (3.8-5.5); Red Cell Distribution Width 15.1 % (9.3-17.3)
[2019-03-31] MEDS: INSULIN REGULAR 100 UNIT/ML SUBCUT SCH ×5 (03:27→20:06)
[2019-03-31] MEDS: MORPHINE 4 MG/1 ML VIAL IV PRN (03:31)
[2019-03-31 03:54] LABS: Calcium 7.4 MG/DL (8.5-10.1); Osmolality,Calculated 305.3 MOS/KG (273-304)
[2019-03-31 04:27] LABS: Hypochromasia 2+; Lymphocytes 3 % (20-55); Platelet Estimate Decreased; Segmented Neutrophils 95 % (50-85); Total Cells Counted 100
[2019-03-31 04:28] LABS: Ovalocytes 1+
[2019-03-31] MEDS: FINASTERIDE 5 MG TABLET PO SCH (09:31)
[2019-03-31] MEDS: PANTOPRAZOLE 40 MG TABLET PO SCH (09:31)
[2019-03-31] MEDS: ASCORBIC ACID 500 MG TABLET PO SCH ×2 (09:31→21:08)
[2019-03-31] MEDS: CLOPIDOGREL 75 MG TABLET PO SCH (09:32)
[2019-03-31] MEDS: TAMSULOSIN 0.4 MG CAPSULE PO SCH ×2 (09:32→21:09)
[2019-03-31] MEDS: METOPROLOL TARTRATE 50 MG TABLET PO SCH ×3 (09:32→21:09)
[2019-03-31] MEDS: AMIODARONE 200 MG TABLET PO SCH ×2 (09:32→21:07)
[2019-03-31] MEDS: ENOXAPARIN 40 MG/0.4 ML SYRINGE SUBCUT SCH (09:33)
[2019-03-31] MEDS: ASPIRIN EC 325 MG TABLET PO SCH (09:33)
[2019-03-31] MEDS: DOCUSATE SODIUM 100 MG/10 ML UDCUP PO SCH ×2 (09:33→21:10)
[2019-03-31] MEDS: NICOTINE 7 MG/24 HR PATCH TRANSDERM SCH (09:33)
[2019-03-31] MEDS: CHLORHEXIDINE 0.12% ORAL RINSE 60 ML BOTTLE SWISH/SPIT SCH ×2 (09:34→21:40)
[2019-03-31] MEDS: methylPREDNISolone SOD SUC 40 MG/1 ML VIAL IV SCH ×2 (09:34→21:05)
[2019-03-31] MEDS: POTASSIUM CHLORIDE RIDER 20 MEQ in PREMIX 1 EACH IV PRN (09:40)
[2019-03-31] MEDS ORDERED: SODIUM CHLORIDE 0.9% 1,000 ML IV PRN (11:26)
[2019-03-31] MEDS ORDERED: FUROSEMIDE 40 MG/4 ML VIAL IV PRN (11:26)
[2019-03-31] MEDS ORDERED: TROLAMINE SALICYLATE 10% CREAM 85 GM TUBE TOP PRN (11:35)
[2019-03-31] MEDS: clonazePAM 0.5 MG TABLET PO PRN (21:06)
[2019-03-31] MEDS: ZALEPLON 5 MG CAPSULE PO SCH (21:07)
[2019-03-31] MEDS: SERTRALINE 25 MG TABLET PO SCH (21:08)
[2019-03-31] MEDS: ATORVASTATIN 40 MG TABLET PO SCH (21:09)
[2019-03-31 23:33] LABS: Apearance,Urine CLOUDY (Clear); Bilirubin,Urine Negative (Negative); Blood, Urine Moderate mg/dL (Negative); Glucose,Urine (UA) Negative (Negative); Granular Casts,Urine 4 /LPF (0-1); Hyaline Casts,Urine 4 /LPF (0-3); Ketones,Urine Negative (Negative); Mucus,Urine Occasional /LPF (Occasional); Nitrite,Urine Negative (Negative); Protein,Urine Negative; RBC,Urine 4 /HPF (0-4); Urine Color Straw (Yellow); Urine Specific Gravity 1.009 (1.001-1.035); Urine Urobilinogen < 2.0 EU/DL (0.2-1.0); WBC,Urine 2 /HPF (0-6)
[2019-04-01] MEDS: MORPHINE 4 MG/1 ML VIAL IV PRN
[2019-04-01] MEDS: INSULIN REGULAR 100 UNIT/ML SUBCUT SCH ×6 (00:06→21:08)
[2019-04-01] MEDS: dilTIAZem Drip 125 MG/125 ML PREMIX IV SCH (01:02)
[2019-04-01] MEDS: PIPERACILLIN/TAZOBACTAM 3,375 MG in SODIUM CHLORIDE 0.9% 100 ML IV SCH ×3 (01:04→17:47)
[2019-04-01] MEDS: ALBUTEROL/IPRATROPIUM 3 ML NEB RESP TX SCH ×6 (02:03→23:30)
[2019-04-01 04:58] LABS: Basophils % 0.1 % (0.0-0.8); Hemoglobin 10.1 GM/DL (14.0-18.0); Immature Granulocytes % 0.7 %; Immature Granulocytes Absolute 0.08 #; Lymphocytes # 0.2 10*3/uL (1.4-4.0); Lymphocytes % 1.9 % (21.2-54.2); Mean Corpuscular HGB Conc 32.6 GM/DL (32-36); Mean Corpuscular Volume 90.1 FL (87-102); Mean Platelet Volume 10.4 FL (9.6-12.0); Monocytes % 2.6 % (1.7-12.7); Neutrophils % 94.7 % (38.7-73.9); Platelet Count 142 T/CUMM (130-400); Red Blood Count 3.44 MC/CUMM (3.8-5.5); Red Cell Distribution Width 14.9 % (9.3-17.3); White Blood Count 11.3 T/CUMM (4-12)
[2019-04-01 05:21] LABS: Calcium 8.1 MG/DL (8.5-10.1); Hypochromasia 1+; Lymphocytes 4 % (20-55); Ovalocytes Slight; Platelet Estimate Adequate; Segmented Neutrophils 95 % (50-85); Total Cells Counted 100
[2019-04-01] MEDS: ASPIRIN EC 325 MG TABLET PO SCH (08:06)
[2019-04-01] MEDS: DOCUSATE SODIUM 100 MG/10 ML UDCUP PO SCH (08:06)
[2019-04-01] MEDS: AMIODARONE 200 MG TABLET PO SCH ×2 (08:06→20:54)
[2019-04-01] MEDS: TAMSULOSIN 0.4 MG CAPSULE PO SCH ×2 (08:06→20:57)
[2019-04-01] MEDS: ASCORBIC ACID 500 MG TABLET PO SCH ×2 (08:06→20:52)
[2019-04-01] MEDS: FINASTERIDE 5 MG TABLET PO SCH (08:07)
[2019-04-01] MEDS: METOPROLOL TARTRATE 50 MG TABLET PO SCH ×3 (08:07→20:57)
[2019-04-01] MEDS: PANTOPRAZOLE 40 MG TABLET PO SCH (08:07)
[2019-04-01] MEDS: CHLORHEXIDINE 0.12% ORAL RINSE 60 ML BOTTLE SWISH/SPIT SCH ×2 (08:07→21:07)
[2019-04-01] MEDS: CLOPIDOGREL 75 MG TABLET PO SCH (08:07)
[2019-04-01] MEDS: ENOXAPARIN 40 MG/0.4 ML SYRINGE SUBCUT SCH (08:07)
[2019-04-01] MEDS: methylPREDNISolone SOD SUC 40 MG/1 ML VIAL IV SCH ×2 (08:13→20:58)
[2019-04-01] MEDS: NICOTINE 7 MG/24 HR PATCH TRANSDERM SCH (11:02)
[2019-04-01] MEDS ORDERED: BENZOCAINE/MENTHOL LOZENGE 18/BOX PO PRN (15:59)
[2019-04-01] MEDS: clonazePAM 0.5 MG TABLET PO PRN (20:48)
[2019-04-01] MEDS: ATORVASTATIN 40 MG TABLET PO SCH (20:53)
[2019-04-01] MEDS: SERTRALINE 25 MG TABLET PO SCH (20:55)
[2019-04-01] MEDS: ZALEPLON 5 MG CAPSULE PO SCH (20:56)
[2019-04-02] MEDS: INSULIN REGULAR 100 UNIT/ML SUBCUT SCH ×6 (00:07→20:06)
[2019-04-02] MEDS: MORPHINE 4 MG/1 ML VIAL IV PRN ×2 (02:31→23:23)
[2019-04-02] MEDS: dilTIAZem Drip 125 MG/125 ML PREMIX IV SCH (02:32)
[2019-04-02] MEDS: ALBUTEROL/IPRATROPIUM 3 ML NEB RESP TX SCH ×5 (03:20→19:40)
[2019-04-02] MEDS: PIPERACILLIN/TAZOBACTAM 3,375 MG in SODIUM CHLORIDE 0.9% 100 ML IV SCH ×3 (03:21→18:16)
[2019-04-02 05:00] LABS: Basophils % 0.2 % (0.0-0.8); Hematocrit 31.9 VOL% (42.0-52.0); Hemoglobin 10.3 GM/DL (14.0-18.0); Immature Granulocytes % 0.8 %; Immature Granulocytes Absolute 0.11 #; Lymphocytes # 0.2 10*3/uL (1.4-4.0); Lymphocytes % 1.7 % (21.2-54.2); Mean Corpuscular HGB Conc 32.3 GM/DL (32-36); Mean Corpuscular Volume 91.1 FL (87-102); Mean Platelet Volume 10.6 FL (9.6-12.0); Monocytes % 2.8 % (1.7-12.7); Neutrophils % 94.5 % (38.7-73.9); Platelet Count 159 T/CUMM (130-400); Red Cell Distribution Width 14.8 % (9.3-17.3); White Blood Count 14.2 T/CUMM (4-12)
[2019-04-02 05:31] LABS: Anisocytosis Slight; Lymphocytes 1 % (20-55); Platelet Estimate Adequate; Segmented Neutrophils 98 % (50-85); Total Cells Counted 100
[2019-04-02] MEDS: ASCORBIC ACID 500 MG TABLET PO SCH ×2 (10:15→20:03)
[2019-04-02] MEDS: methylPREDNISolone SOD SUC 40 MG/1 ML VIAL IV SCH ×2 (10:15→20:06)
[2019-04-02] MEDS: AMIODARONE 200 MG TABLET PO SCH ×2 (10:15→20:04)
[2019-04-02] MEDS: ENOXAPARIN 40 MG/0.4 ML SYRINGE SUBCUT SCH (10:20)
[2019-04-02] MEDS: TAMSULOSIN 0.4 MG CAPSULE PO SCH ×2 (10:21→20:03)
[2019-04-02] MEDS: CLOPIDOGREL 75 MG TABLET PO SCH (10:22)
[2019-04-02] MEDS: ASPIRIN EC 325 MG TABLET PO SCH (10:22)
[2019-04-02] MEDS: BISACODYL 5 MG TABLET PO PRN (10:22)
[2019-04-02] MEDS: METOPROLOL TARTRATE 50 MG TABLET PO SCH ×3 (10:22→20:03)
[2019-04-02] MEDS: NICOTINE 7 MG/24 HR PATCH TRANSDERM SCH (10:23)
[2019-04-02] MEDS: FINASTERIDE 5 MG TABLET PO SCH (10:24)
[2019-04-02] MEDS: PANTOPRAZOLE 40 MG TABLET PO SCH (10:24)
[2019-04-02] MEDS: CHLORHEXIDINE 0.12% ORAL RINSE 60 ML BOTTLE SWISH/SPIT SCH ×2 (10:28→20:05)
[2019-04-02] MEDS: ONDANSETRON 4 MG/2 ML VIAL IV PRN (14:46)
[2019-04-02] MEDS: ZALEPLON 5 MG CAPSULE PO SCH (20:04)
[2019-04-02] MEDS: SERTRALINE 25 MG TABLET PO SCH (20:04)
[2019-04-02] MEDS: ATORVASTATIN 40 MG TABLET PO SCH (20:04)
[2019-04-02] MEDS: clonazePAM 0.5 MG TABLET PO PRN ×2 (20:05→21:26)
[2019-04-03] MEDS: ALBUTEROL/IPRATROPIUM 3 ML NEB RESP TX SCH ×7 (00:10→23:00)
[2019-04-03] MEDS: INSULIN REGULAR 100 UNIT/ML SUBCUT SCH ×6 (01:01→20:26)
[2019-04-03] MEDS: dilTIAZem Drip 125 MG/125 ML PREMIX IV SCH (01:02)
[2019-04-03] MEDS: PIPERACILLIN/TAZOBACTAM 3,375 MG in SODIUM CHLORIDE 0.9% 100 ML IV SCH ×3 (02:33→18:25)
[2019-04-03 05:58] LABS: Basophils % 0.1 % (0.0-0.8); Hematocrit 31.4 VOL% (42.0-52.0); Immature Granulocytes % 0.6 %; Immature Granulocytes Absolute 0.07 #; Lymphocytes # 0.2 10*3/uL (1.4-4.0); Lymphocytes % 1.7 % (21.2-54.2); Mean Corpuscular HGB Conc 31.8 GM/DL (32-36); Mean Corpuscular Volume 94.3 FL (87-102); Mean Platelet Volume 10.5 FL (9.6-12.0); Monocytes % 2.4 % (1.7-12.7); Neutrophils % 95.2 % (38.7-73.9); Platelet Count 170 T/CUMM (130-400); Red Blood Count 3.33 MC/CUMM (3.8-5.5); Red Cell Distribution Width 14.7 % (9.3-17.3)
[2019-04-03 06:35] LABS: Calcium 8.2 MG/DL (8.5-10.1)
[2019-04-03] MEDS: MORPHINE 4 MG/1 ML VIAL IV PRN (06:44)
[2019-04-03] MEDS ORDERED: HALOPERIDOL 5 MG/ML AMP IV ONE (07:32)
[2019-04-03] MEDS ORDERED: diphenhydrAMINE 50 MG/1 ML VIAL IV ONE (07:32)
[2019-04-03 07:46] LABS: Anisocytosis Slight; Band Neutrophils 3 % (0-10); Lymphocytes 2 % (20-55); Platelet Estimate Normal; Segmented Neutrophils 94 % (50-85); Total Cells Counted 100
[2019-04-03 07:47] LABS: Macrocytosis Slight
[2019-04-03] MEDS: PANTOPRAZOLE 40 MG TABLET PO SCH (10:12)
[2019-04-03] MEDS: ASCORBIC ACID 500 MG TABLET PO SCH ×2 (10:12→22:03)
[2019-04-03] MEDS: NICOTINE 7 MG/24 HR PATCH TRANSDERM SCH (10:12)
[2019-04-03] MEDS: FINASTERIDE 5 MG TABLET PO SCH (10:13)
[2019-04-03] MEDS: CLOPIDOGREL 75 MG TABLET PO SCH (10:13)
[2019-04-03] MEDS: BISACODYL 5 MG TABLET PO PRN (10:13)
[2019-04-03] MEDS: ASPIRIN EC 325 MG TABLET PO SCH (10:13)
[2019-04-03] MEDS: METOPROLOL TARTRATE 50 MG TABLET PO SCH ×3 (10:13→22:03)
[2019-04-03] MEDS: TAMSULOSIN 0.4 MG CAPSULE PO SCH ×2 (10:13→22:03)
[2019-04-03] MEDS: AMIODARONE 200 MG TABLET PO SCH ×2 (10:14→22:03)
[2019-04-03] MEDS: ENOXAPARIN 40 MG/0.4 ML SYRINGE SUBCUT SCH (10:14)
[2019-04-03] MEDS: methylPREDNISolone SOD SUC 40 MG/1 ML VIAL IV SCH ×2 (10:15→22:03)
[2019-04-03] MEDS: CHLORHEXIDINE 0.12% ORAL RINSE 60 ML BOTTLE SWISH/SPIT SCH ×2 (10:15→22:03)
[2019-04-03] MEDS ORDERED: LIDOCAINE 2% 20 ML VIAL ONE (14:53)
[2019-04-03] MEDS ORDERED: LIDOCAINE 2% 20 ML VIAL MISC INJ ONE (18:13)
[2019-04-03] MEDS: ATORVASTATIN 40 MG TABLET PO SCH (22:03)
[2019-04-03] MEDS: ZALEPLON 5 MG CAPSULE PO SCH (22:03)
[2019-04-03] MEDS: SERTRALINE 25 MG TABLET PO SCH (22:03)
[2019-04-04] MEDS: INSULIN REGULAR 100 UNIT/ML SUBCUT SCH ×6 (00:06→20:11)
[2019-04-04] MEDS: dilTIAZem Drip 125 MG/125 ML PREMIX IV SCH (00:34)
[2019-04-04] MEDS: ONDANSETRON 4 MG/2 ML VIAL IV PRN (00:35)
[2019-04-04] MEDS: MORPHINE 4 MG/1 ML VIAL IV PRN ×3 (00:35→22:53)
[2019-04-04] MEDS: ALBUTEROL/IPRATROPIUM 3 ML NEB RESP TX SCH ×5 (02:15→19:50)
[2019-04-04] MEDS: PIPERACILLIN/TAZOBACTAM 3,375 MG in SODIUM CHLORIDE 0.9% 100 ML IV SCH ×3 (03:11→18:43)
[2019-04-04 04:30] LABS: Basophils # 0.1 10*3/uL (0.0-0.2); Basophils % 0.2 % (0.0-0.8); Hematocrit 34.3 VOL% (42.0-52.0); Hemoglobin 10.9 GM/DL (14.0-18.0); Immature Granulocytes % 0.7 %; Immature Granulocytes Absolute 0.15 #; Lymphocytes # 0.3 10*3/uL (1.4-4.0); Lymphocytes % 1.5 % (21.2-54.2); Mean Corpuscular HGB Conc 31.8 GM/DL (32-36); Mean Corpuscular Volume 93.5 FL (87-102); Mean Platelet Volume 10.4 FL (9.6-12.0); Monocytes % 2.6 % (1.7-12.7); Platelet Count 218 T/CUMM (130-400); Red Blood Count 3.67 MC/CUMM (3.8-5.5); Red Cell Distribution Width 14.5 % (9.3-17.3); White Blood Count 20.6 T/CUMM (4-12)
[2019-04-04 04:55] LABS: Calcium 8.6 MG/DL (8.5-10.1); Osmolality,Calculated 306.7 MOS/KG (273-304)
[2019-04-04 05:00] LABS: Hypochromasia Slight; Lymphocytes 2 % (20-55); Ovalocytes Slight; Platelet Estimate Adequate; Segmented Neutrophils 95 % (50-85); Total Cells Counted 100
[2019-04-04] MEDS: ENOXAPARIN 40 MG/0.4 ML SYRINGE SUBCUT SCH (09:50)
[2019-04-04] MEDS: TAMSULOSIN 0.4 MG CAPSULE PO SCH ×2 (09:51→20:11)
[2019-04-04] MEDS: METOPROLOL TARTRATE 50 MG TABLET PO SCH ×2 (09:51→20:11)
[2019-04-04] MEDS: ASPIRIN EC 325 MG TABLET PO SCH (09:51)
[2019-04-04] MEDS: AMIODARONE 200 MG TABLET PO SCH ×2 (09:51→20:11)
[2019-04-04] MEDS: ASCORBIC ACID 500 MG TABLET PO SCH ×2 (09:51→20:11)
[2019-04-04] MEDS: CLOPIDOGREL 75 MG TABLET PO SCH (09:52)
[2019-04-04] MEDS: FINASTERIDE 5 MG TABLET PO SCH (09:52)
[2019-04-04] MEDS: methylPREDNISolone SOD SUC 40 MG/1 ML VIAL IV SCH (09:52)
[2019-04-04] MEDS: PANTOPRAZOLE 40 MG TABLET PO SCH (09:52)
[2019-04-04] MEDS: CHLORHEXIDINE 0.12% ORAL RINSE 60 ML BOTTLE SWISH/SPIT SCH ×2 (09:54→20:11)
[2019-04-04] MEDS: NICOTINE 7 MG/24 HR PATCH TRANSDERM SCH (09:54)
[2019-04-04 18:36] LABS: Apearance,Urine CLOUDY (Clear); Bacteria,Urine Occasional /HPF (Few); Bilirubin,Urine Negative (Negative); Blood, Urine Moderate mg/dL (Negative); Glucose,Urine (UA) Negative (Negative); Ketones,Urine 5 mg/dL (Negative); Nitrite,Urine Negative (Negative); Protein,Urine Negative; RBC,Urine 116 /HPF (0-4); Urine Color Yellow (Yellow); Urine Specific Gravity 1.023 (1.001-1.035); Urine Urobilinogen < 2.0 EU/DL (0.2-1.0); WBC,Urine 6 /HPF (0-6)
[2019-04-04] MEDS: ZALEPLON 5 MG CAPSULE PO SCH (20:11)
[2019-04-04] MEDS: ATORVASTATIN 40 MG TABLET PO SCH (20:11)
[2019-04-04] MEDS: SERTRALINE 25 MG TABLET PO SCH (20:12)
[2019-04-05] MEDS: ALBUTEROL/IPRATROPIUM 3 ML NEB RESP TX SCH ×6 (00:44→20:09)
[2019-04-05] MEDS: dilTIAZem Drip 125 MG/125 ML PREMIX IV SCH (01:36)
[2019-04-05] MEDS: PIPERACILLIN/TAZOBACTAM 3,375 MG in SODIUM CHLORIDE 0.9% 100 ML IV SCH ×3 (03:49→18:51)
[2019-04-05 06:13] LABS: Calcium 8.3 MG/DL (8.5-10.1); Osmolality,Calculated 309.4 MOS/KG (273-304)
[2019-04-05] MEDS: INSULIN REGULAR 100 UNIT/ML SUBCUT SCH ×4 (07:23→20:35)
[2019-04-05] MEDS: NICOTINE 7 MG/24 HR PATCH TRANSDERM SCH (09:04)
[2019-04-05] MEDS: PANTOPRAZOLE 40 MG TABLET PO SCH (09:05)
[2019-04-05] MEDS: AMIODARONE 200 MG TABLET PO SCH ×2 (09:05→20:33)
[2019-04-05] MEDS: ASCORBIC ACID 500 MG TABLET PO SCH ×2 (09:06→20:33)
[2019-04-05] MEDS: TAMSULOSIN 0.4 MG CAPSULE PO SCH ×2 (09:06→20:33)
[2019-04-05] MEDS: FINASTERIDE 5 MG TABLET PO SCH (09:06)
[2019-04-05] MEDS: CHLORHEXIDINE 0.12% ORAL RINSE 60 ML BOTTLE SWISH/SPIT SCH ×2 (09:06→20:34)
[2019-04-05] MEDS: methylPREDNISolone SOD SUC 40 MG/1 ML VIAL IV SCH (09:06)
[2019-04-05] MEDS: METOPROLOL TARTRATE 50 MG TABLET PO SCH ×2 (10:16→20:39)
[2019-04-05] MEDS: ENOXAPARIN 40 MG/0.4 ML SYRINGE SUBCUT SCH (11:00)
[2019-04-05] MEDS: CLOPIDOGREL 75 MG TABLET PO SCH (11:01)
[2019-04-05] MEDS: ASPIRIN EC 325 MG TABLET PO SCH (11:15)
[2019-04-05] MEDS: ATORVASTATIN 40 MG TABLET PO SCH (20:33)
[2019-04-05] MEDS: ZALEPLON 5 MG CAPSULE PO SCH (20:33)
[2019-04-05] MEDS: SERTRALINE 25 MG TABLET PO SCH (20:33)
[2019-04-05] MEDS: ONDANSETRON 4 MG/2 ML VIAL IV PRN (20:34)
[2019-04-05] MEDS ORDERED: SODIUM CHLORIDE 0.9% 1,000 ML IV PRN ×2 (21:36→21:52)
[2019-04-06] MEDS ORDERED: TALC INTRAPLEURAL POWDER 3 GM VIAL INTRAPLEUR ONE ×3 (00:01→06:13)
[2019-04-06] MEDS ORDERED: BUPIVACAINE LIPOSOMAL 20 ML/266 MG VIAL INFILTRAT ONE (00:01)
[2019-04-06] MEDS: ALBUTEROL/IPRATROPIUM 3 ML NEB RESP TX SCH ×8 (01:00→23:09)
[2019-04-06] MEDS: dilTIAZem Drip 125 MG/125 ML PREMIX IV SCH (02:01)
[2019-04-06] MEDS: PIPERACILLIN/TAZOBACTAM 3,375 MG in SODIUM CHLORIDE 0.9% 100 ML IV SCH ×3 (02:15→21:53)
[2019-04-06] MEDS: MORPHINE 4 MG/1 ML VIAL IV PRN ×4 (04:15→23:45)
[2019-04-06 04:54] LABS: ABG Base Excess 1.1 MMOL/L (-2.5-2.5); ABG HCO3 25.7 MMOL/L (20-26); ABG Oxygen Saturation 92.4 % (95-100); ABG PCO2 40.7 MM HG (35-48); ABG PH 7.418 (7.35-7.45); ABG PO2 73.1 MM HG (80-95); ABG TCO2 26.9 MMOL/L (23-27); Allen Test Positive
[2019-04-06] MEDS ORDERED: BUPIVACAINE LIPOSOMAL 20 ML/266 MG VIAL ONE (05:05)
[2019-04-06 05:43] LABS: Basophils % 0.2 % (0.0-0.8); Eosinophils # 0.1 10*3/uL (0.0-0.87); Eosinophils % 0.5 % (0.00-10.9); Hematocrit 31.1 VOL% (42.0-52.0); Hemoglobin 9.7 GM/DL (14.0-18.0); Immature Granulocytes % 0.7 %; Immature Granulocytes Absolute 0.11 #; Lymphocytes # 0.5 10*3/uL (1.4-4.0); Lymphocytes % 3.1 % (21.2-54.2); Mean Corpuscular HGB Conc 31.2 GM/DL (32-36); Mean Corpuscular Volume 93.7 FL (87-102); Mean Platelet Volume 10.3 FL (9.6-12.0); Monocytes % 4.2 % (1.7-12.7); Neutrophils % 91.3 % (38.7-73.9); Platelet Count 161 T/CUMM (130-400); Red Blood Count 3.32 MC/CUMM (3.8-5.5); Red Cell Distribution Width 14.5 % (9.3-17.3); White Blood Count 16.3 T/CUMM (4-12)
[2019-04-06 06:06] LABS: Band Neutrophils 4 % (0-10); Lymphocytes 2 % (20-55); Segmented Neutrophils 92 % (50-85); Total Cells Counted 100
[2019-04-06 06:07] LABS: Anisocytosis 1+; Ovalocytes Few; Platelet Estimate Adequate
[2019-04-06 06:12] LABS: Calcium 8.2 MG/DL (8.5-10.1); Osmolality,Calculated 308.4 MOS/KG (273-304)
[2019-04-06] MEDS: ASPIRIN EC 325 MG TABLET PO SCH (08:50)
[2019-04-06] MEDS: AMIODARONE 200 MG TABLET PO SCH ×2 (08:50→20:57)
[2019-04-06] MEDS: CLOPIDOGREL 75 MG TABLET PO SCH (08:50)
[2019-04-06] MEDS: TAMSULOSIN 0.4 MG CAPSULE PO SCH ×2 (08:50→20:57)
[2019-04-06] MEDS: ASCORBIC ACID 500 MG TABLET PO SCH ×2 (08:50→20:56)
[2019-04-06] MEDS: CHLORHEXIDINE 0.12% ORAL RINSE 60 ML BOTTLE SWISH/SPIT SCH ×2 (08:50→20:58)
[2019-04-06] MEDS: PANTOPRAZOLE 40 MG TABLET PO SCH (08:50)
[2019-04-06] MEDS: FINASTERIDE 5 MG TABLET PO SCH (08:50)
[2019-04-06] MEDS ORDERED: MEPERIDINE 25 MG/1 ML VIAL ONE (10:07)
[2019-04-06] MEDS ORDERED: ONDANSETRON 4 MG/2 ML VIAL ONE (10:07)
[2019-04-06] MEDS: MEPERIDINE 25 MG/1 ML VIAL IV PRN ×2 (10:20→10:30)
[2019-04-06] MEDS ORDERED: PROMETHAZINE INJ 25 MG in SODIUM CHLORIDE 0.9% 50 ML IV PRN (10:24)
[2019-04-06] MEDS ORDERED: ONDANSETRON 4 MG/2 ML VIAL IV PRN (10:24)
[2019-04-06] MEDS ORDERED: SEVOFLURANE 1 UNIT/15 MINUTE INH ONE (10:45)
[2019-04-06] MEDS ORDERED: MIDAZOLAM 2 MG/2 ML VIAL ONE (10:45)
[2019-04-06] MEDS ORDERED: fentaNYL 100 MCG/2 ML VIAL ONE (10:46)
[2019-04-06] MEDS ORDERED: PHENYLEPHRINE 1 MG/10 ML SYRINGE IV ONE (10:46)
[2019-04-06] MEDS ORDERED: SODIUM CHLORIDE 0.9% 250 ML IV ONE (10:46)
[2019-04-06] MEDS ORDERED: SUCCINYLCHOLINE 200 MG/10 ML VIAL ONE (10:46)
[2019-04-06] MEDS ORDERED: ePHEDrine 50 MG/ML AMP ONE (10:46)
[2019-04-06] MEDS ORDERED: METOPROLOL TARTRATE 5 MG/5 ML VIAL IV ONE (10:46)
[2019-04-06] MEDS ORDERED: ROCURONIUM 100 MG/10 ML VIAL IV ONE (10:46)
[2019-04-06] MEDS ORDERED: ETOMIDATE 40 MG/20 ML VIAL IV ONE (10:46)
[2019-04-06] MEDS: INSULIN REGULAR 100 UNIT/ML SUBCUT SCH ×4 (11:47→21:05)
[2019-04-06] MEDS: METOPROLOL TARTRATE 50 MG TABLET PO SCH ×2 (12:09→21:04)
[2019-04-06] MEDS: PHENYLEPHRINE DRIP 40 MG/250 ML PREMIX IV PRN (12:25)
[2019-04-06] MEDS: NICOTINE 7 MG/24 HR PATCH TRANSDERM SCH (13:56)
[2019-04-06] MEDS: methylPREDNISolone SOD SUC 40 MG/1 ML VIAL IV SCH (13:57)
[2019-04-06] MEDS: ZALEPLON 5 MG CAPSULE PO SCH (20:57)
[2019-04-06] MEDS: ATORVASTATIN 40 MG TABLET PO SCH (20:58)
[2019-04-06] MEDS: SERTRALINE 25 MG TABLET PO SCH (20:58)
[2019-04-07] MEDS: dilTIAZem Drip 125 MG/125 ML PREMIX IV SCH (02:22)
[2019-04-07] MEDS: ALBUTEROL/IPRATROPIUM 3 ML NEB RESP TX SCH ×6 (03:05→23:38)
[2019-04-07] MEDS: MORPHINE 4 MG/1 ML VIAL IV PRN (03:25)
[2019-04-07 03:27] LABS: Basophils % 0.2 % (0.0-0.8); Eosinophils % 0.1 % (0.00-10.9); Hematocrit 30.4 VOL% (42.0-52.0); Hemoglobin 9.4 GM/DL (14.0-18.0); Immature Granulocytes % 0.7 %; Immature Granulocytes Absolute 0.12 #; Lymphocytes # 0.4 10*3/uL (1.4-4.0); Lymphocytes % 2.4 % (21.2-54.2); Mean Corpuscular HGB Conc 30.9 GM/DL (32-36); Mean Corpuscular Volume 95.6 FL (87-102); Mean Platelet Volume 10.8 FL (9.6-12.0); Monocytes % 2.5 % (1.7-12.7); Neutrophils % 94.1 % (38.7-73.9); Platelet Count 138 T/CUMM (130-400); Red Blood Count 3.18 MC/CUMM (3.8-5.5); Red Cell Distribution Width 14.6 % (9.3-17.3); White Blood Count 17.5 T/CUMM (4-12)
[2019-04-07 03:35] LABS: Calcium 7.9 MG/DL (8.5-10.1); Osmolality,Calculated 304.6 MOS/KG (273-304)
[2019-04-07 03:47] LABS: Band Neutrophils 4 % (0-10); Lymphocytes 2 % (20-55); Segmented Neutrophils 92 % (50-85); Total Cells Counted 100
[2019-04-07 03:48] LABS: Anisocytosis 1+; Platelet Estimate Adequate
[2019-04-07] MEDS: PIPERACILLIN/TAZOBACTAM 3,375 MG in SODIUM CHLORIDE 0.9% 100 ML IV SCH ×3 (05:27→22:08)
[2019-04-07] MEDS: ASCORBIC ACID 500 MG TABLET PO SCH ×2 (09:42→20:51)
[2019-04-07] MEDS: NICOTINE 7 MG/24 HR PATCH TRANSDERM SCH (09:42)
[2019-04-07] MEDS: ENOXAPARIN 40 MG/0.4 ML SYRINGE SUBCUT SCH (09:42)
[2019-04-07] MEDS: FINASTERIDE 5 MG TABLET PO SCH (09:42)
[2019-04-07] MEDS: TAMSULOSIN 0.4 MG CAPSULE PO SCH ×2 (09:42→20:51)
[2019-04-07] MEDS: AMIODARONE 200 MG TABLET PO SCH (09:43)
[2019-04-07] MEDS: PANTOPRAZOLE 40 MG TABLET PO SCH (09:43)
[2019-04-07] MEDS: CLOPIDOGREL 75 MG TABLET PO SCH (09:43)
[2019-04-07] MEDS: METOPROLOL TARTRATE 50 MG TABLET PO SCH ×2 (09:43→20:50)
[2019-04-07] MEDS: ASPIRIN EC 325 MG TABLET PO SCH (09:43)
[2019-04-07] MEDS: methylPREDNISolone SOD SUC 40 MG/1 ML VIAL IV SCH (09:44)
[2019-04-07] MEDS: CHLORHEXIDINE 0.12% ORAL RINSE 60 ML BOTTLE SWISH/SPIT SCH ×2 (11:19→20:52)
[2019-04-07] MEDS: INSULIN REGULAR 100 UNIT/ML SUBCUT SCH ×4 (11:19→20:58)
[2019-04-07] MEDS ORDERED: LIDOCAINE 2% 20 ML VIAL ONE (11:29)
[2019-04-07] MEDS ORDERED: LIDOCAINE 2% 20 ML VIAL MISC INJ ONE (12:16)
[2019-04-07 19:03] LABS: ABG Base Excess -2.7 MMOL/L (-2.5-2.5); ABG HCO3 22.1 MMOL/L (20-26); ABG Oxygen Saturation 92.8 % (95-100); ABG PCO2 38.6 MM HG (35-48); ABG PH 7.369 (7.35-7.45); ABG PO2 64.9 MM HG (80-95); ABG TCO2 20.3 MMOL/L (23-27); Allen Test Positive; Pt O2 Delivery Device Venturi Mask
[2019-04-07] MEDS: CLORAZEPATE 3.75 MG TABLET PO SCH (20:50)
[2019-04-07] MEDS: ATORVASTATIN 40 MG TABLET PO SCH (20:52)
[2019-04-07] MEDS: SERTRALINE 25 MG TABLET PO SCH (20:52)
[2019-04-07] MEDS: ZALEPLON 5 MG CAPSULE PO SCH ×2 (20:58→23:57)
[2019-04-08] MEDS: dilTIAZem Drip 125 MG/125 ML PREMIX IV SCH (01:17)
[2019-04-08] MEDS: CLORAZEPATE 3.75 MG TABLET PO SCH ×3 (01:21→14:56)
[2019-04-08] MEDS: ALBUTEROL/IPRATROPIUM 3 ML NEB RESP TX SCH ×6 (03:27→22:55)
[2019-04-08] MEDS: PIPERACILLIN/TAZOBACTAM 3,375 MG in SODIUM CHLORIDE 0.9% 100 ML IV SCH ×2 (05:06→14:56)
[2019-04-08 05:42] LABS: Basophils % 0.2 % (0.0-0.8); Eosinophils % 0.3 % (0.00-10.9); Hematocrit 29.7 VOL% (42.0-52.0); Hemoglobin 9.6 GM/DL (14.0-18.0); Immature Granulocytes % 0.7 %; Immature Granulocytes Absolute 0.11 #; Lymphocytes # 0.5 10*3/uL (1.4-4.0); Lymphocytes % 3.3 % (21.2-54.2); Mean Corpuscular HGB Conc 32.3 GM/DL (32-36); Mean Corpuscular Volume 93.7 FL (87-102); Monocytes % 2.3 % (1.7-12.7); Neutrophils % 93.2 % (38.7-73.9); Platelet Count 148 T/CUMM (130-400); Red Blood Count 3.17 MC/CUMM (3.8-5.5); Red Cell Distribution Width 14.3 % (9.3-17.3); White Blood Count 15.5 T/CUMM (4-12)
[2019-04-08 05:55] LABS: Calcium 8.1 MG/DL (8.5-10.1); Osmolality,Calculated 299.3 MOS/KG (273-304)
[2019-04-08 06:02] LABS: Eosinophils 1 % (0-10); Hypochromasia 1+; Lymphocytes 5 % (20-55); Platelet Estimate Adequate; Segmented Neutrophils 92 % (50-85); Total Cells Counted 100
[2019-04-08] MEDS: INSULIN REGULAR 100 UNIT/ML SUBCUT SCH ×4 (07:45→20:14)
[2019-04-08] MEDS: METOPROLOL TARTRATE 50 MG TABLET PO SCH ×2 (08:19→20:15)
[2019-04-08] MEDS: ENOXAPARIN 40 MG/0.4 ML SYRINGE SUBCUT SCH (08:31)
[2019-04-08] MEDS: CHLORHEXIDINE 0.12% ORAL RINSE 60 ML BOTTLE SWISH/SPIT SCH ×2 (08:31→20:16)
[2019-04-08] MEDS: NICOTINE 7 MG/24 HR PATCH TRANSDERM SCH (08:32)
[2019-04-08] MEDS: ASPIRIN EC 325 MG TABLET PO SCH (08:33)
[2019-04-08] MEDS: ASCORBIC ACID 500 MG TABLET PO SCH ×2 (08:33→20:15)
[2019-04-08] MEDS: TAMSULOSIN 0.4 MG CAPSULE PO SCH ×2 (08:34→20:15)
[2019-04-08] MEDS: CLOPIDOGREL 75 MG TABLET PO SCH (08:34)
[2019-04-08] MEDS: PANTOPRAZOLE 40 MG TABLET PO SCH (08:34)
[2019-04-08] MEDS: methylPREDNISolone SOD SUC 40 MG/1 ML VIAL IV SCH (08:34)
[2019-04-08] MEDS: AMIODARONE 200 MG TABLET PO SCH (08:34)
[2019-04-08] MEDS: FINASTERIDE 5 MG TABLET PO SCH (08:34)
[2019-04-08] MEDS: ONDANSETRON 4 MG/2 ML VIAL IV PRN (12:56)
[2019-04-08] MEDS ORDERED: ZOLPIDEM 5 MG TABLET PO PRN (19:12)
[2019-04-08] MEDS: ATORVASTATIN 40 MG TABLET PO SCH (20:15)
[2019-04-08] MEDS: SERTRALINE 25 MG TABLET PO SCH (20:15)
[2019-04-08] MEDS ORDERED: HALOPERIDOL 5 MG/ML AMP IV ONE (22:38)
[2019-04-09] MEDS: ALBUTEROL/IPRATROPIUM 3 ML NEB RESP TX SCH ×6 (03:12→23:10)
[2019-04-09] MEDS: dilTIAZem Drip 125 MG/125 ML PREMIX IV SCH (03:26)
[2019-04-09 03:56] LABS: ABG Base Excess -1.4 MMOL/L (-2.5-2.5); ABG HCO3 23.2 MMOL/L (20-26); ABG Oxygen Saturation 95.1 % (95-100); ABG PCO2 37.1 MM HG (35-48); ABG PH 7.402 (7.35-7.45); ABG PO2 70.1 MM HG (80-95); ABG TCO2 21.3 MMOL/L (23-27); Allen Test Positive; Pt O2 Delivery Device Venturi Mask
[2019-04-09 05:35] LABS: Osmolality,Calculated 300.1 MOS/KG (273-304)
[2019-04-09 06:07] LABS: Basophils % 0.2 % (0.0-0.8); Eosinophils # 0.1 10*3/uL (0.0-0.87); Eosinophils % 0.3 % (0.00-10.9); Hematocrit 30.1 VOL% (42.0-52.0); Hemoglobin 9.6 GM/DL (14.0-18.0); Immature Granulocytes Absolute 0.23 #; Lymphocytes # 0.6 10*3/uL (1.4-4.0); Lymphocytes % 2.8 % (21.2-54.2); Mean Corpuscular HGB Conc 31.9 GM/DL (32-36); Mean Corpuscular Volume 93.2 FL (87-102); Mean Platelet Volume 10.9 FL (9.6-12.0); Monocytes % 2.7 % (1.7-12.7); Platelet Count 154 T/CUMM (130-400); Red Blood Count 3.23 MC/CUMM (3.8-5.5); Red Cell Distribution Width 14.6 % (9.3-17.3)
[2019-04-09 07:26] LABS: Band Neutrophils 1 % (0-10); Hypochromasia 1+; Lymphocytes 3 % (20-55); Microcytosis Slight; Segmented Neutrophils 93 % (50-85); Tear Drop Cells Slight; Total Cells Counted 100
[2019-04-09 07:27] LABS: Burr Cells Slight; Platelet Estimate Adequate
[2019-04-09] MEDS: NICOTINE 7 MG/24 HR PATCH TRANSDERM SCH (08:34)
[2019-04-09] MEDS: ENOXAPARIN 40 MG/0.4 ML SYRINGE SUBCUT SCH (08:34)
[2019-04-09] MEDS: FINASTERIDE 5 MG TABLET PO SCH (08:35)
[2019-04-09] MEDS: ASPIRIN EC 325 MG TABLET PO SCH (08:35)
[2019-04-09] MEDS: ASCORBIC ACID 500 MG TABLET PO SCH ×2 (08:35→20:15)
[2019-04-09] MEDS: TAMSULOSIN 0.4 MG CAPSULE PO SCH ×2 (08:35→20:14)
[2019-04-09] MEDS: AMIODARONE 200 MG TABLET PO SCH (08:36)
[2019-04-09] MEDS: PANTOPRAZOLE 40 MG TABLET PO SCH (08:36)
[2019-04-09] MEDS: METOPROLOL TARTRATE 50 MG TABLET PO SCH ×2 (08:37→20:18)
[2019-04-09] MEDS: CLOPIDOGREL 75 MG TABLET PO SCH (08:37)
[2019-04-09] MEDS: CHLORHEXIDINE 0.12% ORAL RINSE 60 ML BOTTLE SWISH/SPIT SCH ×2 (08:37→20:16)
[2019-04-09] MEDS: INSULIN REGULAR 100 UNIT/ML SUBCUT SCH ×4 (08:38→20:19)
[2019-04-09 09:57] LABS: Apearance,Urine Slightly Hazy (Clear); Bacteria,Urine Occasional /HPF (Few); Bilirubin,Urine Negative (Negative); Blood, Urine Large mg/dL (Negative); Glucose,Urine (UA) Negative (Negative); Ketones,Urine Negative (Negative); Nitrite,Urine Negative (Negative); Protein,Urine 100 MG/DL; RBC,Urine 2169 /HPF (0-4); Urine Color Yellow (Yellow); Urine Urobilinogen < 2.0 EU/DL (0.2-1.0); WBC,Urine 6 /HPF (0-6)
[2019-04-09] MEDS: methylPREDNISolone SOD SUC 40 MG/1 ML VIAL IV SCH (11:05)
[2019-04-09] MEDS: SERTRALINE 25 MG TABLET PO SCH (20:13)
[2019-04-09] MEDS: ATORVASTATIN 40 MG TABLET PO SCH (20:13)
[2019-04-10] MEDS: dilTIAZem Drip 125 MG/125 ML PREMIX IV SCH (01:55)
[2019-04-10] MEDS: ALBUTEROL/IPRATROPIUM 3 ML NEB RESP TX SCH ×6 (03:38→22:59)
[2019-04-10 03:58] LABS: Basophils % 0.1 % (0.0-0.8); Eosinophils % 0.1 % (0.00-10.9); Hematocrit 29.4 VOL% (42.0-52.0); Hemoglobin 9.5 GM/DL (14.0-18.0); Immature Granulocytes % 0.8 %; Immature Granulocytes Absolute 0.15 #; Lymphocytes # 0.4 10*3/uL (1.4-4.0); Lymphocytes % 2.5 % (21.2-54.2); Mean Corpuscular HGB Conc 32.3 GM/DL (32-36); Mean Corpuscular Volume 92.5 FL (87-102); Mean Platelet Volume 10.8 FL (9.6-12.0); Monocytes % 2.4 % (1.7-12.7); Neutrophils % 94.1 % (38.7-73.9); Platelet Count 160 T/CUMM (130-400); Red Blood Count 3.18 MC/CUMM (3.8-5.5); Red Cell Distribution Width 14.7 % (9.3-17.3); White Blood Count 17.9 T/CUMM (4-12)
[2019-04-10 04:23] LABS: Calcium 8.1 MG/DL (8.5-10.1); Osmolality,Calculated 300.8 MOS/KG (273-304)
[2019-04-10 04:53] LABS: Anisocytosis 1+; Lymphocytes 3 % (20-55); Platelet Estimate Adequate; Segmented Neutrophils 97 % (50-85); Total Cells Counted 100
[2019-04-10] MEDS: INSULIN REGULAR 100 UNIT/ML SUBCUT SCH ×4 (08:12→21:21)
[2019-04-10] MEDS: AMIODARONE 200 MG TABLET PO SCH (08:50)
[2019-04-10] MEDS: CLOPIDOGREL 75 MG TABLET PO SCH (08:50)
[2019-04-10] MEDS: PANTOPRAZOLE 40 MG TABLET PO SCH (08:50)
[2019-04-10] MEDS: TAMSULOSIN 0.4 MG CAPSULE PO SCH ×2 (08:50→21:23)
[2019-04-10] MEDS: METOPROLOL TARTRATE 50 MG TABLET PO SCH ×2 (08:50→21:24)
[2019-04-10] MEDS: FINASTERIDE 5 MG TABLET PO SCH (08:51)
[2019-04-10] MEDS: ASCORBIC ACID 500 MG TABLET PO SCH ×2 (08:51→21:22)
[2019-04-10] MEDS: ASPIRIN EC 325 MG TABLET PO SCH (08:51)
[2019-04-10] MEDS: ENOXAPARIN 40 MG/0.4 ML SYRINGE SUBCUT SCH (08:51)
[2019-04-10] MEDS: NICOTINE 7 MG/24 HR PATCH TRANSDERM SCH (08:52)
[2019-04-10] MEDS: methylPREDNISolone SOD SUC 40 MG/1 ML VIAL IV SCH (08:52)
[2019-04-10] MEDS: CHLORHEXIDINE 0.12% ORAL RINSE 60 ML BOTTLE SWISH/SPIT SCH ×2 (08:52→21:25)
[2019-04-10] MEDS: ATORVASTATIN 40 MG TABLET PO SCH (21:23)
[2019-04-10] MEDS: SERTRALINE 25 MG TABLET PO SCH (21:25)
[2019-04-11] MEDS: ALBUTEROL/IPRATROPIUM 3 ML NEB RESP TX SCH ×5 (02:13→19:12)
[2019-04-11] MEDS: dilTIAZem Drip 125 MG/125 ML PREMIX IV SCH (02:51)
[2019-04-11 04:47] LABS: Basophils % 0.1 % (0.0-0.8); Hematocrit 29.6 VOL% (42.0-52.0); Hemoglobin 9.2 GM/DL (14.0-18.0); Immature Granulocytes % 0.9 %; Immature Granulocytes Absolute 0.15 #; Lymphocytes # 0.3 10*3/uL (1.4-4.0); Lymphocytes % 1.9 % (21.2-54.2); Mean Corpuscular HGB Conc 31.1 GM/DL (32-36); Mean Corpuscular Volume 93.7 FL (87-102); Mean Platelet Volume 11.1 FL (9.6-12.0); Monocytes % 3.4 % (1.7-12.7); Neutrophils % 93.7 % (38.7-73.9); Platelet Count 157 T/CUMM (130-400); Red Blood Count 3.16 MC/CUMM (3.8-5.5); Red Cell Distribution Width 14.8 % (9.3-17.3); White Blood Count 17.3 T/CUMM (4-12)
[2019-04-11 05:16] LABS: Calcium 8.4 MG/DL (8.5-10.1); Osmolality,Calculated 301.7 MOS/KG (273-304)
[2019-04-11 05:28] LABS: Band Neutrophils 2 % (0-10); Hypochromasia 1+; Lymphocytes 2 % (20-55); Ovalocytes Slight; Platelet Estimate Normal; Segmented Neutrophils 94 % (50-85); Total Cells Counted 100
[2019-04-11 05:29] LABS: Microcytosis Slight
[2019-04-11] MEDS ORDERED: POTASSIUM CHLORIDE IV ONE (07:13)
[2019-04-11] MEDS: POTASSIUM CHLORIDE RIDER 10 MEQ in PREMIX 1 EACH IV PRN ×3 (07:17→09:13)
[2019-04-11] MEDS: INSULIN REGULAR 100 UNIT/ML SUBCUT SCH ×4 (07:43→20:10)
[2019-04-11] MEDS: PANTOPRAZOLE 40 MG TABLET PO SCH (08:50)
[2019-04-11] MEDS: ENOXAPARIN 40 MG/0.4 ML SYRINGE SUBCUT SCH (08:50)
[2019-04-11] MEDS: CLOPIDOGREL 75 MG TABLET PO SCH (08:50)
[2019-04-11] MEDS: ASCORBIC ACID 500 MG TABLET PO SCH ×2 (08:50→20:01)
[2019-04-11] MEDS: ASPIRIN EC 325 MG TABLET PO SCH (08:50)
[2019-04-11] MEDS: METOPROLOL TARTRATE 50 MG TABLET PO SCH ×2 (08:50→20:29)
[2019-04-11] MEDS: AMIODARONE 200 MG TABLET PO SCH (08:51)
[2019-04-11] MEDS: NICOTINE 7 MG/24 HR PATCH TRANSDERM SCH (08:51)
[2019-04-11] MEDS: TAMSULOSIN 0.4 MG CAPSULE PO SCH ×2 (08:51→20:01)
[2019-04-11] MEDS: methylPREDNISolone SOD SUC 40 MG/1 ML VIAL IV SCH (09:06)
[2019-04-11] MEDS: CHLORHEXIDINE 0.12% ORAL RINSE 60 ML BOTTLE SWISH/SPIT SCH ×2 (09:06→20:02)
[2019-04-11] MEDS: FINASTERIDE 5 MG TABLET PO SCH (09:06)
[2019-04-11 10:30] LABS: ABG Base Excess -5.7 MMOL/L (-2.5-2.5); ABG HCO3 19.5 MMOL/L (20-26); ABG Oxygen Saturation 85.1 % (95-100); ABG PH 7.332 (7.35-7.45); ABG PO2 52.5 MM HG (80-95); Allen Test Positive
[2019-04-11] MEDS: PIPERACILLIN/TAZOBACTAM 3,375 MG in SODIUM CHLORIDE 0.9% 100 ML IV SCH ×2 (11:04→18:26)
[2019-04-11] MEDS ORDERED: GLUCAGON 1 MG VIAL IM PRN (13:51)
[2019-04-11] MEDS ORDERED: LIDOCAINE 2% VISCOUS 100 ML BOTTLE ONE (14:02)
[2019-04-11] MEDS ORDERED: LACTATED RINGERS 1,000 ML IV ONE (15:37)
[2019-04-11] MEDS ORDERED: LACTATED RINGERS 500 ML IV ONE ×2 (17:00→18:46)
[2019-04-11] MEDS: SERTRALINE 25 MG TABLET PO SCH (20:01)
[2019-04-11] MEDS: ATORVASTATIN 40 MG TABLET PO SCH (20:30)
[2019-04-12] MEDS: ALBUTEROL/IPRATROPIUM 3 ML NEB RESP TX SCH ×7 (00:48→23:30)
[2019-04-12 01:11] LABS: Allen Test Positive; Pt O2 Delivery Device Other
[2019-04-12 01:15] LABS: ABG Base Excess -5.4 MMOL/L (-2.5-2.5); ABG HCO3 19.7 MMOL/L (20-26); ABG Oxygen Saturation 81.6 % (95-100); ABG PCO2 43.9 MM HG (35-48); ABG PH 7.288 (7.35-7.45); ABG PO2 50.9 MM HG (80-95); ABG TCO2 19.5 MMOL/L (23-27)
[2019-04-12] MEDS: dilTIAZem Drip 125 MG/125 ML PREMIX IV SCH (01:18)
[2019-04-12] MEDS ORDERED: ALBUTEROL/IPRATROPIUM 3 ML NEB RESP TX ONE (01:25)
[2019-04-12] MEDS: INSULIN REGULAR 100 UNIT/ML SUBCUT SCH ×4 (01:36→18:14)
[2019-04-12] MEDS ORDERED: LEVALBUTEROL 1.25 MG/3 ML NEB RESP TX ONE (01:40)
[2019-04-12] MEDS: PHENYLEPHRINE DRIP 40 MG/250 ML PREMIX IV PRN ×4 (01:53→19:40)
[2019-04-12] MEDS: PIPERACILLIN/TAZOBACTAM 3,375 MG in SODIUM CHLORIDE 0.9% 100 ML IV SCH ×3 (02:56→18:53)
[2019-04-12 05:20] LABS: Basophils % 0.2 % (0.0-0.8); Hematocrit 29.5 VOL% (42.0-52.0); Hemoglobin 9.4 GM/DL (14.0-18.0); Immature Granulocytes % 0.8 %; Lymphocytes # 0.2 10*3/uL (1.4-4.0); Lymphocytes % 1.8 % (21.2-54.2); Mean Corpuscular HGB Conc 31.9 GM/DL (32-36); Mean Corpuscular Volume 92.2 FL (87-102); Mean Platelet Volume 11.6 FL (9.6-12.0); Monocytes % 2.1 % (1.7-12.7); Neutrophils % 95.1 % (38.7-73.9); Platelet Count 143 T/CUMM (130-400); Red Cell Distribution Width 15.1 % (9.3-17.3); White Blood Count 12.9 T/CUMM (4-12)
[2019-04-12 05:36] LABS: Calcium 8.5 MG/DL (8.5-10.1); Osmolality,Calculated 316.4 MOS/KG (273-304)
[2019-04-12 05:40] LABS: Prealbumin 7.8 MG/DL (20-40)
[2019-04-12 05:47] LABS: Band Neutrophils 6 % (0-10); Hypochromasia 1+; Lymphocytes 1 % (20-55); Microcytosis Slight; Platelet Estimate Normal; Segmented Neutrophils 93 % (50-85); Total Cells Counted 100
[2019-04-12] MEDS: MAGNESIUM SULF RIDER 2 GM in PREMIX 1 EACH IV PRN (06:37)
[2019-04-12] MEDS: SODIUM CHLORIDE 0.9% 1,000 ML IV SCH ×2 (06:37→16:37)
[2019-04-12] MEDS ORDERED: ETOMIDATE 20 MG/10 ML VIAL IV ONE ×2 (06:59→07:15)
[2019-04-12] MEDS ORDERED: PROPOFOL 1,000 MG/100 ML BOTTLE IV ONE (07:02)
[2019-04-12] MEDS ORDERED: ROCURONIUM 100 MG/10 ML VIAL IV ONE ×2 (07:07→07:15)
[2019-04-12] MEDS: PROPOFOL 1,000 MG/100 ML BOTTLE IV SCH (07:30)
[2019-04-12 09:12] LABS: ABG Base Excess -7.4 MMOL/L (-2.5-2.5); ABG HCO3 18.4 MMOL/L (20-26); ABG Oxygen Saturation 98.5 % (95-100); ABG PCO2 54.6 MM HG (35-48); ABG TCO2 19.8 MMOL/L (23-27); Allen Test Positive; Pt O2 Delivery Device Ventilator
[2019-04-12 09:13] LABS: ABG PH 7.195 (7.35-7.45)
[2019-04-12] MEDS: CHLORHEXIDINE 0.12% ORAL RINSE 60 ML BOTTLE SWISH/SPIT SCH ×2 (09:32→20:10)
[2019-04-12] MEDS: PANTOPRAZOLE 40 MG TABLET PO SCH (09:33)
[2019-04-12] MEDS: methylPREDNISolone SOD SUC 40 MG/1 ML VIAL IV SCH (09:43)
[2019-04-12] MEDS: ENOXAPARIN 40 MG/0.4 ML SYRINGE SUBCUT SCH (09:44)
[2019-04-12] MEDS: ASPIRIN EC 325 MG TABLET PO SCH (09:44)
[2019-04-12] MEDS: NICOTINE 7 MG/24 HR PATCH TRANSDERM SCH (09:44)
[2019-04-12] MEDS: FINASTERIDE 5 MG TABLET PO SCH (09:45)
[2019-04-12] MEDS: TAMSULOSIN 0.4 MG CAPSULE PO SCH ×2 (09:45→20:10)
[2019-04-12] MEDS: CLOPIDOGREL 75 MG TABLET PO SCH (09:45)
[2019-04-12] MEDS: ASCORBIC ACID 500 MG TABLET PO SCH ×2 (09:45→20:10)
[2019-04-12] MEDS: AMIODARONE 200 MG TABLET PO SCH (09:45)
[2019-04-12] MEDS: CEFTAROLINE 300 MG in SODIUM CHLORIDE 0.9% 100 ML IV SCH ×2 (10:35→20:26)
[2019-04-12] MEDS ORDERED: SODIUM BICARBONATE 50 MEQ/50 ML VIAL IV ONE ×4 (13:03→14:48)
[2019-04-12] MEDS ORDERED: ALBUMIN 5% 12.5 GM/250 ML VIAL IV ONE (14:02)
[2019-04-12] MEDS ORDERED: ALBUMIN 5% 25 GM in PREMIX 1 EACH IV ONE (14:15)
[2019-04-12 14:27] LABS: ABG Base Excess -3.7 MMOL/L (-2.5-2.5); ABG HCO3 22.9 MMOL/L (20-26); ABG Oxygen Saturation 93.9 % (95-100); ABG PCO2 47.2 MM HG (35-48); ABG PH 7.303 (7.35-7.45); ABG PO2 79.2 MM HG (80-95); ABG TCO2 24.3 MMOL/L (23-27); Allen Test Positive; Pt O2 Delivery Device Ventilator
[2019-04-12] MEDS: SERTRALINE 25 MG TABLET PO SCH (20:10)
[2019-04-12] MEDS: ATORVASTATIN 40 MG TABLET PO SCH (20:10)
[2019-04-13] MEDS: PHENYLEPHRINE DRIP 40 MG/250 ML PREMIX IV PRN ×9 (00:02→20:33)
[2019-04-13] MEDS: INSULIN REGULAR 100 UNIT/ML SUBCUT SCH ×4 (00:43→18:14)
[2019-04-13] MEDS: SODIUM CHLORIDE 0.9% 1,000 ML IV SCH ×2 (02:47→12:40)
[2019-04-13] MEDS: ALBUTEROL/IPRATROPIUM 3 ML NEB RESP TX SCH ×5 (02:50→19:41)
[2019-04-13 03:56] LABS: ABG Base Excess -2.8 MMOL/L (-2.5-2.5); ABG HCO3 22.1 MMOL/L (20-26); ABG Oxygen Saturation 96.1 % (95-100); ABG PCO2 43.5 MM HG (35-48); ABG PH 7.331 (7.35-7.45); ABG PO2 85.8 MM HG (80-95); ABG TCO2 21.6 MMOL/L (23-27)
[2019-04-13] MEDS: PIPERACILLIN/TAZOBACTAM 3,375 MG in SODIUM CHLORIDE 0.9% 100 ML IV SCH ×3 (04:03→19:17)
[2019-04-13] MEDS: dilTIAZem Drip 125 MG/125 ML PREMIX IV SCH (04:52)
[2019-04-13] MEDS ORDERED: LACTATED RINGERS 500 ML IV ONE ×2 (05:30→06:33)
[2019-04-13 07:16] LABS: Basophils % 0.2 % (0.0-0.8); Eosinophils % 0.1 % (0.00-10.9); Hematocrit 23.1 VOL% (42.0-52.0); Immature Granulocytes % 1.4 %; Immature Granulocytes Absolute 0.13 #; Lymphocytes # 0.2 10*3/uL (1.4-4.0); Lymphocytes % 2.4 % (21.2-54.2); Mean Corpuscular HGB Conc 31.6 GM/DL (32-36); Mean Corpuscular Volume 94.3 FL (87-102); Mean Platelet Volume 11.4 FL (9.6-12.0); Monocytes % 2.5 % (1.7-12.7); NRBC # 0.03 10*3/uL; Neutrophils % 93.4 % (38.7-73.9); Platelet Count 118 T/CUMM (130-400); Red Cell Distribution Width 15.9 % (9.3-17.3); White Blood Count 9.6 T/CUMM (4-12)
[2019-04-13 07:21] LABS: Hemoglobin 7.3 GM/DL (14.0-18.0); Red Blood Count 2.45 MC/CUMM (3.8-5.5)
[2019-04-13 07:28] LABS: Band Neutrophils 1 % (0-10); Hypochromasia Slight; Lymphocytes 5 % (20-55); Ovalocytes Slight; Platelet Estimate Decreased; Segmented Neutrophils 92 % (50-85); Total Cells Counted 100
[2019-04-13 07:29] LABS: Microcytosis Slight
[2019-04-13] MEDS ORDERED: FUROSEMIDE 40 MG/4 ML VIAL IV PRN (07:30)
[2019-04-13 07:35] LABS: Calcium 7.9 MG/DL (8.5-10.1); Osmolality,Calculated 320.7 MOS/KG (273-304)
[2019-04-13] MEDS: PROPOFOL 1,000 MG/100 ML BOTTLE IV SCH (09:23)
[2019-04-13] MEDS: CHLORHEXIDINE 0.12% ORAL RINSE 60 ML BOTTLE SWISH/SPIT SCH ×2 (09:24→21:04)
[2019-04-13] MEDS: TAMSULOSIN 0.4 MG CAPSULE PO SCH ×2 (09:24→21:04)
[2019-04-13] MEDS: PANTOPRAZOLE 40 MG TABLET PO SCH (09:25)
[2019-04-13] MEDS: FINASTERIDE 5 MG TABLET PO SCH (09:49)
[2019-04-13] MEDS: CLOPIDOGREL 75 MG TABLET PO SCH (09:49)
[2019-04-13] MEDS: ASCORBIC ACID 500 MG TABLET PO SCH ×2 (09:49→21:03)
[2019-04-13] MEDS: ENOXAPARIN 40 MG/0.4 ML SYRINGE SUBCUT SCH (09:49)
[2019-04-13] MEDS: AMIODARONE 200 MG TABLET PO SCH (09:49)
[2019-04-13] MEDS: NICOTINE 7 MG/24 HR PATCH TRANSDERM SCH (09:49)
[2019-04-13] MEDS: methylPREDNISolone SOD SUC 40 MG/1 ML VIAL IV SCH (09:50)
[2019-04-13] MEDS: CEFTAROLINE 300 MG in SODIUM CHLORIDE 0.9% 100 ML IV SCH ×2 (09:51→21:01)
[2019-04-13] MEDS: ASPIRIN EC 325 MG TABLET PO SCH (09:51)
[2019-04-13] MEDS: LANSOPRAZOLE ODT 30 MG TABLET PER TUBE SCH (11:05)
[2019-04-13] MEDS: ASPIRIN 325 MG TABLET PER TUBE SCH (11:05)
[2019-04-13] MEDS: ATORVASTATIN 40 MG TABLET PO SCH (21:03)
[2019-04-13] MEDS: SERTRALINE 25 MG TABLET PO SCH (21:04)
[2019-04-14] MEDS: ALBUTEROL/IPRATROPIUM 3 ML NEB RESP TX SCH ×6 (00:10→23:00)
[2019-04-14] MEDS: INSULIN REGULAR 100 UNIT/ML SUBCUT SCH ×5 (00:29→23:31)
[2019-04-14] MEDS: PHENYLEPHRINE DRIP 40 MG/250 ML PREMIX IV PRN ×5 (00:30→16:39)
[2019-04-14] MEDS: dilTIAZem Drip 125 MG/125 ML PREMIX IV SCH (04:21)
[2019-04-14] MEDS: PIPERACILLIN/TAZOBACTAM 3,375 MG in SODIUM CHLORIDE 0.9% 100 ML IV SCH ×3 (04:25→19:54)
[2019-04-14 04:57] LABS: Basophils % 0.3 % (0.0-0.8); Hematocrit 33.2 VOL% (42.0-52.0); Hemoglobin 10.4 GM/DL (14.0-18.0); Immature Granulocytes % 0.5 %; Immature Granulocytes Absolute 0.04 #; Lymphocytes # 0.2 10*3/uL (1.4-4.0); Lymphocytes % 2.5 % (21.2-54.2); Mean Corpuscular HGB Conc 31.3 GM/DL (32-36); Monocytes % 3.1 % (1.7-12.7); Neutrophils % 93.6 % (38.7-73.9); Red Blood Count 3.57 MC/CUMM (3.8-5.5); Red Cell Distribution Width 16.7 % (9.3-17.3); White Blood Count 7.7 T/CUMM (4-12)
[2019-04-14 04:58] LABS: Platelet Count 91 T/CUMM (130-400)
[2019-04-14 05:08] LABS: Calcium 8.1 MG/DL (8.5-10.1); Osmolality,Calculated 326.7 MOS/KG (273-304)
[2019-04-14 05:20] LABS: Band Neutrophils 3 % (0-10); Burr Cells Slight; Hypochromasia 1+; Lymphocytes 2 % (20-55); Microcytosis 1+; Segmented Neutrophils 91 % (50-85); Total Cells Counted 100
[2019-04-14 05:21] LABS: Anisocytosis 1+; Ovalocytes Slight; Platelet Estimate Decreased
[2019-04-14 06:58] LABS: ABG Base Excess -4.3 MMOL/L (-2.5-2.5); ABG HCO3 20.8 MMOL/L (20-26); ABG Oxygen Saturation 96.4 % (95-100); ABG PCO2 45.4 MM HG (35-48); ABG PH 7.297 (7.35-7.45); ABG PO2 84.9 MM HG (80-95); ABG TCO2 20.2 MMOL/L (23-27)
[2019-04-14] MEDS: PROPOFOL 1,000 MG/100 ML BOTTLE IV SCH (08:28)
[2019-04-14] MEDS: TAMSULOSIN 0.4 MG CAPSULE PO SCH ×2 (09:01→21:26)
[2019-04-14] MEDS: CHLORHEXIDINE 0.12% ORAL RINSE 60 ML BOTTLE SWISH/SPIT SCH ×2 (09:07→21:26)
[2019-04-14] MEDS: ENOXAPARIN 40 MG/0.4 ML SYRINGE SUBCUT SCH (09:17)
[2019-04-14] MEDS: CLOPIDOGREL 75 MG TABLET PO SCH (09:17)
[2019-04-14] MEDS: LANSOPRAZOLE ODT 30 MG TABLET PER TUBE SCH (09:17)
[2019-04-14] MEDS: AMIODARONE 200 MG TABLET PO SCH (09:18)
[2019-04-14] MEDS: FINASTERIDE 5 MG TABLET PO SCH (09:18)
[2019-04-14] MEDS: NICOTINE 7 MG/24 HR PATCH TRANSDERM SCH (09:18)
[2019-04-14] MEDS: ASCORBIC ACID 500 MG TABLET PO SCH ×2 (09:18→21:26)
[2019-04-14] MEDS: ASPIRIN 325 MG TABLET PER TUBE SCH (09:18)
[2019-04-14] MEDS: methylPREDNISolone SOD SUC 40 MG/1 ML VIAL IV SCH (09:19)
[2019-04-14] MEDS: CEFTAROLINE 300 MG in SODIUM CHLORIDE 0.9% 100 ML IV SCH ×2 (09:19→21:25)
[2019-04-14] MEDS ORDERED: fentaNYL INJ 1,250 MCG in SODIUM CHLORIDE 0.9% 225 ML IV PRN (10:56)
[2019-04-14] MEDS: ATORVASTATIN 40 MG TABLET PO SCH (21:25)
[2019-04-14] MEDS: SERTRALINE 25 MG TABLET PO SCH (21:26)
[2019-04-15] MEDS: PHENYLEPHRINE DRIP 40 MG/250 ML PREMIX IV PRN ×3 (01:44→13:19)
[2019-04-15] MEDS: dilTIAZem Drip 125 MG/125 ML PREMIX IV SCH (01:45)
[2019-04-15] MEDS: ALBUTEROL/IPRATROPIUM 3 ML NEB RESP TX SCH ×7 (02:05→23:38)
[2019-04-15] MEDS: PIPERACILLIN/TAZOBACTAM 3,375 MG in SODIUM CHLORIDE 0.9% 100 ML IV SCH ×3 (02:37→18:22)
[2019-04-15] MEDS ORDERED: METOPROLOL TARTRATE 5 MG/5 ML VIAL IV ONE (04:57)
[2019-04-15] MEDS ORDERED: ESMOLOL 100 MG/10 ML VIAL IV ONE ×2 (04:58→05:35)
[2019-04-15 05:17] LABS: ABG Base Excess -3.1 MMOL/L (-2.5-2.5); ABG HCO3 19.7 MMOL/L (20-26); ABG Oxygen Saturation 92.1 % (95-100); ABG PCO2 28.1 MM HG (35-48); ABG PH 7.463 (7.35-7.45); ABG PO2 61.7 MM HG (80-95); ABG TCO2 20.5 MMOL/L (23-27)
[2019-04-15 05:29] LABS: Basophils % 0.1 % (0.0-0.8); Hemoglobin 10.5 GM/DL (14.0-18.0); Immature Granulocytes % 0.5 %; Immature Granulocytes Absolute 0.04 #; Lymphocytes # 0.2 10*3/uL (1.4-4.0); Lymphocytes % 2.3 % (21.2-54.2); Mean Corpuscular HGB Conc 32.8 GM/DL (32-36); Mean Corpuscular Volume 90.1 FL (87-102); Mean Platelet Volume 12.1 FL (9.6-12.0); Monocytes % 4.3 % (1.7-12.7); Neutrophils % 92.8 % (38.7-73.9); Platelet Count 85 T/CUMM (130-400); Red Blood Count 3.55 MC/CUMM (3.8-5.5); White Blood Count 8.2 T/CUMM (4-12)
[2019-04-15 05:54] LABS: Calcium 8.2 MG/DL (8.5-10.1); Osmolality,Calculated 331.3 MOS/KG (273-304)
[2019-04-15 05:58] LABS: Band Neutrophils 3 % (0-10); Lymphocytes 3 % (20-55); Platelet Estimate Decreased; Segmented Neutrophils 86 % (50-85); Total Cells Counted 100
[2019-04-15 05:59] LABS: Hypochromasia 1+; Microcytosis 1+
[2019-04-15] MEDS ORDERED: LACTATED RINGERS 500 ML IV ONE (06:05)
[2019-04-15] MEDS: INSULIN REGULAR 100 UNIT/ML SUBCUT SCH ×4 (06:18→23:59)
[2019-04-15] MEDS: ESMOLOL 2,500 MG/250 ML PREMIX IV SCH (06:54)
[2019-04-15] MEDS: PROPOFOL 1,000 MG/100 ML BOTTLE IV SCH (07:37)
[2019-04-15] MEDS: ENOXAPARIN 40 MG/0.4 ML SYRINGE SUBCUT SCH (08:07)
[2019-04-15] MEDS: NICOTINE 7 MG/24 HR PATCH TRANSDERM SCH (08:07)
[2019-04-15] MEDS: LANSOPRAZOLE ODT 30 MG TABLET PER TUBE SCH (08:08)
[2019-04-15] MEDS: FINASTERIDE 5 MG TABLET PO SCH (08:08)
[2019-04-15] MEDS: ASPIRIN 325 MG TABLET PER TUBE SCH (08:08)
[2019-04-15] MEDS: AMIODARONE 200 MG TABLET PO SCH ×3 (08:08→20:06)
[2019-04-15] MEDS: CLOPIDOGREL 75 MG TABLET PO SCH (08:08)
[2019-04-15] MEDS: CHLORHEXIDINE 0.12% ORAL RINSE 60 ML BOTTLE SWISH/SPIT SCH ×2 (08:08→20:08)
[2019-04-15] MEDS: ASCORBIC ACID 500 MG TABLET PO SCH ×2 (08:08→20:05)
[2019-04-15] MEDS: TAMSULOSIN 0.4 MG CAPSULE PO SCH ×2 (08:08→20:05)
[2019-04-15] MEDS: CEFTAROLINE 300 MG in SODIUM CHLORIDE 0.9% 100 ML IV SCH ×2 (08:08→20:35)
[2019-04-15] MEDS: methylPREDNISolone SOD SUC 40 MG/1 ML VIAL IV SCH (08:08)
[2019-04-15] MEDS: DEXMEDETOMIDINE 200 MCG in SODIUM CHLORIDE 0.9% 48 ML IV PRN ×3 (09:03→20:07)
[2019-04-15 16:38] LABS: ABG HCO3 19.4 MMOL/L (20-26); ABG Oxygen Saturation 92.4 % (95-100); ABG PCO2 26.7 MM HG (35-48); ABG PO2 68.4 MM HG (80-95); ABG TCO2 20.3 MMOL/L (23-27)
[2019-04-15] MEDS ORDERED: SALIVA SUBSTITUTE SPRAY 60 ML CAN SWISH/SPIT PRN (18:22)
[2019-04-15] MEDS: APIXABAN 2.5 MG TABLET PO SCH (20:05)
[2019-04-15] MEDS: SERTRALINE 25 MG TABLET PO SCH (20:06)
[2019-04-15] MEDS: ATORVASTATIN 40 MG TABLET PO SCH (20:06)
[2019-04-15] MEDS: MIDAZOLAM 2 MG/2 ML VIAL IV PRN (21:53)
[2019-04-16] MEDS: DEXMEDETOMIDINE 200 MCG in SODIUM CHLORIDE 0.9% 48 ML IV PRN ×3 (00:29→12:56)
[2019-04-16] MEDS: PHENYLEPHRINE DRIP 40 MG/250 ML PREMIX IV PRN (01:26)
[2019-04-16] MEDS: ALBUTEROL/IPRATROPIUM 3 ML NEB RESP TX SCH ×6 (03:00→22:59)
[2019-04-16] MEDS: dilTIAZem Drip 125 MG/125 ML PREMIX IV SCH (03:15)
[2019-04-16] MEDS: PIPERACILLIN/TAZOBACTAM 3,375 MG in SODIUM CHLORIDE 0.9% 100 ML IV SCH ×3 (03:32→18:20)
[2019-04-16 04:35] LABS: Basophils % 0.1 % (0.0-0.8); Eosinophils % 0.1 % (0.00-10.9); Hematocrit 30.2 VOL% (42.0-52.0); Hemoglobin 9.7 GM/DL (14.0-18.0); Immature Granulocytes % 0.7 %; Immature Granulocytes Absolute 0.05 #; Lymphocytes # 0.3 10*3/uL (1.4-4.0); Lymphocytes % 4.1 % (21.2-54.2); Mean Corpuscular HGB Conc 32.1 GM/DL (32-36); Mean Corpuscular Volume 91.2 FL (87-102); Mean Platelet Volume 12.2 FL (9.6-12.0); Monocytes % 5.6 % (1.7-12.7); Neutrophils % 89.4 % (38.7-73.9); Platelet Count 74 T/CUMM (130-400); Red Blood Count 3.31 MC/CUMM (3.8-5.5); Red Cell Distribution Width 16.7 % (9.3-17.3)
[2019-04-16 04:44] LABS: ABG Base Excess -2.3 MMOL/L (-2.5-2.5); ABG HCO3 22.4 MMOL/L (20-26); ABG Oxygen Saturation 96.2 % (95-100); ABG PCO2 31.1 MM HG (35-48); ABG PO2 67.7 MM HG (80-95); ABG TCO2 19.4 MMOL/L (23-27)
[2019-04-16 04:47] LABS: Calcium 8.1 MG/DL (8.5-10.1); Osmolality,Calculated 326.4 MOS/KG (273-304)
[2019-04-16] MEDS: INSULIN REGULAR 100 UNIT/ML SUBCUT SCH ×4 (05:49→23:52)
[2019-04-16 06:01] LABS: Anisocytosis 1+; Band Neutrophils 2 % (0-10); Lymphocytes 10 % (20-55); Segmented Neutrophils 87 % (50-85); Total Cells Counted 100
[2019-04-16 06:02] LABS: Ovalocytes Few; Platelet Estimate Decreased
[2019-04-16] MEDS: ESMOLOL 2,500 MG/250 ML PREMIX IV SCH (07:05)
[2019-04-16] MEDS: PROPOFOL 1,000 MG/100 ML BOTTLE IV SCH (07:05)
[2019-04-16] MEDS: CHLORHEXIDINE 0.12% ORAL RINSE 60 ML BOTTLE SWISH/SPIT SCH ×2 (09:15→20:33)
[2019-04-16] MEDS: NICOTINE 7 MG/24 HR PATCH TRANSDERM SCH (09:18)
[2019-04-16] MEDS: methylPREDNISolone SOD SUC 40 MG/1 ML VIAL IV SCH (09:19)
[2019-04-16] MEDS: ASPIRIN 325 MG TABLET PER TUBE SCH (09:19)
[2019-04-16] MEDS: ASCORBIC ACID 500 MG TABLET PO SCH ×2 (09:19→20:01)
[2019-04-16] MEDS: FINASTERIDE 5 MG TABLET PO SCH (09:19)
[2019-04-16] MEDS: AMIODARONE 200 MG TABLET PO SCH ×3 (09:20→20:01)
[2019-04-16] MEDS: LANSOPRAZOLE ODT 30 MG TABLET PER TUBE SCH (09:20)
[2019-04-16] MEDS: TAMSULOSIN 0.4 MG CAPSULE PO SCH ×2 (09:20→20:21)
[2019-04-16] MEDS: APIXABAN 2.5 MG TABLET PO SCH ×2 (09:20→20:01)
[2019-04-16] MEDS: CEFTAROLINE 300 MG in SODIUM CHLORIDE 0.9% 100 ML IV SCH ×2 (09:21→20:33)
[2019-04-16] MEDS: MORPHINE 4 MG/1 ML VIAL IV PRN ×2 (17:43→22:15)
[2019-04-16] MEDS: ATORVASTATIN 40 MG TABLET PO SCH (20:01)
[2019-04-16] MEDS: SERTRALINE 25 MG TABLET PO SCH (20:01)
[2019-04-17] MEDS: ALBUTEROL/IPRATROPIUM 3 ML NEB RESP TX SCH ×5 (02:47→19:37)
[2019-04-17] MEDS: PIPERACILLIN/TAZOBACTAM 3,375 MG in SODIUM CHLORIDE 0.9% 100 ML IV SCH (03:12)
[2019-04-17] MEDS: dilTIAZem Drip 125 MG/125 ML PREMIX IV SCH (03:24)
[2019-04-17 03:48] LABS: Basophils % 0.2 % (0.0-0.8); Hematocrit 31.1 VOL% (42.0-52.0); Hemoglobin 9.9 GM/DL (14.0-18.0); Immature Granulocytes % 0.6 %; Immature Granulocytes Absolute 0.03 #; Lymphocytes # 0.2 10*3/uL (1.4-4.0); Lymphocytes % 2.8 % (21.2-54.2); Mean Corpuscular HGB Conc 31.8 GM/DL (32-36); Mean Corpuscular Volume 92.6 FL (87-102); Mean Platelet Volume 13.1 FL (9.6-12.0); Monocytes % 5.2 % (1.7-12.7); Neutrophils % 91.2 % (38.7-73.9); Platelet Count 61 T/CUMM (130-400); Red Blood Count 3.36 MC/CUMM (3.8-5.5); Red Cell Distribution Width 16.8 % (9.3-17.3); White Blood Count 5.4 T/CUMM (4-12)
[2019-04-17 03:49] LABS: ABG Base Excess -3.4 MMOL/L (-2.5-2.5); ABG HCO3 21.5 MMOL/L (20-26); ABG Oxygen Saturation 92.9 % (95-100); ABG PCO2 32.5 MM HG (35-48); ABG PH 7.409 (7.35-7.45); ABG PO2 60.2 MM HG (80-95); ABG TCO2 18.9 MMOL/L (23-27)
[2019-04-17 03:58] LABS: Calcium 8.3 MG/DL (8.5-10.1); Osmolality,Calculated 319.1 MOS/KG (273-304)
[2019-04-17] MEDS: MIDAZOLAM 2 MG/2 ML VIAL IV PRN (04:28)
[2019-04-17] MEDS: ESMOLOL 2,500 MG/250 ML PREMIX IV SCH ×2 (04:32→06:47)
[2019-04-17 04:55] LABS: Band Neutrophils 1 % (0-10); Lymphocytes 5 % (20-55); Segmented Neutrophils 92 % (50-85); Total Cells Counted 100
[2019-04-17] MEDS: MORPHINE 4 MG/1 ML VIAL IV PRN ×3 (04:55→18:39)
[2019-04-17 04:56] LABS: Acanthocytes Few; Anisocytosis 1+; Ovalocytes 1+; Platelet Estimate Decreased
[2019-04-17] MEDS: INSULIN REGULAR 100 UNIT/ML SUBCUT SCH ×3 (06:47→17:53)
[2019-04-17] MEDS: PROPOFOL 1,000 MG/100 ML BOTTLE IV SCH (06:47)
[2019-04-17] MEDS: TAMSULOSIN 0.4 MG CAPSULE PO SCH ×2 (08:13→20:10)
[2019-04-17] MEDS: methylPREDNISolone SOD SUC 40 MG/1 ML VIAL IV SCH (08:13)
[2019-04-17] MEDS: FINASTERIDE 5 MG TABLET PO SCH (08:13)
[2019-04-17] MEDS: ASPIRIN 325 MG TABLET PER TUBE SCH (08:13)
[2019-04-17] MEDS: APIXABAN 2.5 MG TABLET PO SCH (08:13)
[2019-04-17] MEDS: ASCORBIC ACID 500 MG TABLET PO SCH ×2 (08:13→20:09)
[2019-04-17] MEDS: AMIODARONE 200 MG TABLET PO SCH ×2 (08:13→20:09)
[2019-04-17] MEDS: LANSOPRAZOLE ODT 30 MG TABLET PER TUBE SCH (08:14)
[2019-04-17] MEDS: CHLORHEXIDINE 0.12% ORAL RINSE 60 ML BOTTLE SWISH/SPIT SCH ×2 (08:14→20:11)
[2019-04-17] MEDS: NICOTINE 7 MG/24 HR PATCH TRANSDERM SCH (08:14)
[2019-04-17] MEDS: CEFTAROLINE 300 MG in SODIUM CHLORIDE 0.9% 100 ML IV SCH ×2 (08:24→09:26)
[2019-04-17] MEDS: METOPROLOL TARTRATE 25 MG TABLET PO SCH ×2 (11:29→20:11)
[2019-04-17] MEDS: SERTRALINE 25 MG TABLET PO SCH (20:09)
[2019-04-17] MEDS: ATORVASTATIN 40 MG TABLET PO SCH (20:11)
[2019-04-18] MEDS: ALBUTEROL/IPRATROPIUM 3 ML NEB RESP TX SCH ×7 (00:03→23:02)
[2019-04-18] MEDS: INSULIN REGULAR 100 UNIT/ML SUBCUT SCH ×4 (00:23→18:06)
[2019-04-18] MEDS: MORPHINE 4 MG/1 ML VIAL IV PRN ×4 (02:15→20:24)
[2019-04-18] MEDS: dilTIAZem Drip 125 MG/125 ML PREMIX IV SCH (02:59)
[2019-04-18 05:12] LABS: Basophils % 0.3 % (0.0-0.8); Eosinophils % 0.1 % (0.00-10.9); Hematocrit 30.5 VOL% (42.0-52.0); Hemoglobin 9.6 GM/DL (14.0-18.0); Immature Granulocytes % 0.6 %; Immature Granulocytes Absolute 0.05 #; Lymphocytes # 0.3 10*3/uL (1.4-4.0); Lymphocytes % 3.5 % (21.2-54.2); Mean Corpuscular HGB Conc 31.5 GM/DL (32-36); Mean Corpuscular Volume 93.3 FL (87-102); Mean Platelet Volume 12.7 FL (9.6-12.0); Monocytes % 4.5 % (1.7-12.7); Platelet Count 83 T/CUMM (130-400); Red Blood Count 3.27 MC/CUMM (3.8-5.5); Red Cell Distribution Width 16.2 % (9.3-17.3); White Blood Count 7.9 T/CUMM (4-12)
[2019-04-18 05:16] LABS: ABG HCO3 20.9 MMOL/L (20-26); ABG Oxygen Saturation 90.3 % (95-100); ABG PCO2 37.4 MM HG (35-48); ABG PH 7.357 (7.35-7.45); ABG TCO2 19.3 MMOL/L (23-27)
[2019-04-18 05:24] LABS: Calcium 8.3 MG/DL (8.5-10.1); Osmolality,Calculated 317.1 MOS/KG (273-304)
[2019-04-18 05:33] LABS: Band Neutrophils 1 % (0-10); Hypochromasia 1+; Lymphocytes 3 % (20-55); Platelet Estimate Decreased; Segmented Neutrophils 94 % (50-85); Total Cells Counted 100
[2019-04-18 05:40] LABS: Prealbumin 11.7 MG/DL (20-40)
[2019-04-18] MEDS: NICOTINE 7 MG/24 HR PATCH TRANSDERM SCH (09:44)
[2019-04-18] MEDS: FINASTERIDE 5 MG TABLET PO SCH (09:46)
[2019-04-18] MEDS: ASPIRIN 325 MG TABLET PER TUBE SCH (09:46)
[2019-04-18] MEDS: ASCORBIC ACID 500 MG TABLET PO SCH ×2 (09:46→20:06)
[2019-04-18] MEDS: METOPROLOL TARTRATE 25 MG TABLET PO SCH ×2 (09:46→20:13)
[2019-04-18] MEDS: AMIODARONE 200 MG TABLET PO SCH ×2 (09:46→20:06)
[2019-04-18] MEDS: TAMSULOSIN 0.4 MG CAPSULE PO SCH ×2 (09:47→20:07)
[2019-04-18] MEDS: methylPREDNISolone SOD SUC 40 MG/1 ML VIAL IV SCH (09:47)
[2019-04-18] MEDS: LANSOPRAZOLE ODT 30 MG TABLET PER TUBE SCH (09:47)
[2019-04-18] MEDS: APIXABAN 2.5 MG TABLET PO SCH ×2 (09:47→20:07)
[2019-04-18] MEDS: CHLORHEXIDINE 0.12% ORAL RINSE 60 ML BOTTLE SWISH/SPIT SCH ×2 (10:10→20:07)
[2019-04-18] MEDS: ATORVASTATIN 40 MG TABLET PO SCH (20:06)
[2019-04-18] MEDS: SERTRALINE 25 MG TABLET PO SCH (20:06)
[2019-04-19] MEDS: MORPHINE 4 MG/1 ML VIAL IV PRN ×3 (00:25→20:32)
[2019-04-19] MEDS: INSULIN REGULAR 100 UNIT/ML SUBCUT SCH ×5 (00:33→23:48)
[2019-04-19] MEDS: dilTIAZem Drip 125 MG/125 ML PREMIX IV SCH (01:40)
[2019-04-19] MEDS: ALBUTEROL/IPRATROPIUM 3 ML NEB RESP TX SCH ×5 (02:38→19:29)
[2019-04-19 04:01] LABS: Basophils % 0.1 % (0.0-0.8); Eosinophils % 0.1 % (0.00-10.9); Hemoglobin 8.5 GM/DL (14.0-18.0); Immature Granulocytes % 0.6 %; Immature Granulocytes Absolute 0.05 #; Lymphocytes # 0.3 10*3/uL (1.4-4.0); Lymphocytes % 3.2 % (21.2-54.2); Mean Corpuscular HGB Conc 31.5 GM/DL (32-36); Mean Corpuscular Volume 93.1 FL (87-102); Mean Platelet Volume 12.7 FL (9.6-12.0); Monocytes % 4.8 % (1.7-12.7); Neutrophils % 91.2 % (38.7-73.9); Platelet Count 96 T/CUMM (130-400); White Blood Count 7.9 T/CUMM (4-12)
[2019-04-19 04:03] LABS: ABG Base Excess -3.7 MMOL/L (-2.5-2.5); ABG HCO3 21.2 MMOL/L (20-26); ABG Oxygen Saturation 94.6 % (95-100); ABG PCO2 33.7 MM HG (35-48); ABG PH 7.393 (7.35-7.45); ABG PO2 66.8 MM HG (80-95)
[2019-04-19 05:25] LABS: Band Neutrophils 3 % (0-10); Hypochromasia 1+; Lymphocytes 5 % (20-55); Microcytosis 1+; Ovalocytes Slight; Segmented Neutrophils 88 % (50-85); Total Cells Counted 100
[2019-04-19 05:26] LABS: Platelet Estimate Decreased
[2019-04-19] MEDS: NICOTINE 7 MG/24 HR PATCH TRANSDERM SCH (09:03)
[2019-04-19] MEDS: APIXABAN 2.5 MG TABLET PO SCH ×2 (09:05→20:35)
[2019-04-19] MEDS: ASPIRIN 325 MG TABLET PER TUBE SCH (09:05)
[2019-04-19] MEDS: FINASTERIDE 5 MG TABLET PO SCH (09:05)
[2019-04-19] MEDS: AMIODARONE 200 MG TABLET PO SCH ×2 (09:06→20:35)
[2019-04-19] MEDS: ASCORBIC ACID 500 MG TABLET PO SCH ×2 (09:06→20:35)
[2019-04-19] MEDS: TAMSULOSIN 0.4 MG CAPSULE PO SCH ×2 (09:07→20:35)
[2019-04-19] MEDS: LANSOPRAZOLE ODT 30 MG TABLET PER TUBE SCH (09:07)
[2019-04-19] MEDS: CHLORHEXIDINE 0.12% ORAL RINSE 60 ML BOTTLE SWISH/SPIT SCH ×2 (09:07→23:41)
[2019-04-19] MEDS: METOPROLOL TARTRATE 25 MG TABLET PO SCH ×2 (09:09→20:35)
[2019-04-19] MEDS: methylPREDNISolone SOD SUC 40 MG/1 ML VIAL IV SCH (09:14)
[2019-04-19] MEDS: SERTRALINE 25 MG TABLET PO SCH (20:35)
[2019-04-19] MEDS: ATORVASTATIN 40 MG TABLET PO SCH (20:35)
[2019-04-20] MEDS: ALBUTEROL/IPRATROPIUM 3 ML NEB RESP TX SCH ×6 (00:22→19:33)
[2019-04-20] MEDS: dilTIAZem Drip 125 MG/125 ML PREMIX IV SCH (02:30)
[2019-04-20] MEDS: MORPHINE 4 MG/1 ML VIAL IV PRN ×3 (03:00→21:21)
[2019-04-20 06:04] LABS: ABG Base Excess -4.8 MMOL/L (-2.5-2.5); ABG HCO3 20.4 MMOL/L (20-26); ABG Oxygen Saturation 95.4 % (95-100); ABG PCO2 40.7 MM HG (35-48); ABG PH 7.319 (7.35-7.45); ABG TCO2 19.5 MMOL/L (23-27)
[2019-04-20 06:07] LABS: Basophils % 0.1 % (0.0-0.8); Eosinophils % 0.1 % (0.00-10.9); Hematocrit 26.9 VOL% (42.0-52.0); Hemoglobin 8.6 GM/DL (14.0-18.0); Immature Granulocytes % 0.6 %; Immature Granulocytes Absolute 0.05 #; Lymphocytes # 0.2 10*3/uL (1.4-4.0); Lymphocytes % 3.1 % (21.2-54.2); Mean Corpuscular Volume 92.4 FL (87-102); Mean Platelet Volume 12.6 FL (9.6-12.0); Monocytes % 5.8 % (1.7-12.7); Neutrophils % 90.3 % (38.7-73.9); Platelet Count 118 T/CUMM (130-400); Red Blood Count 2.91 MC/CUMM (3.8-5.5); Red Cell Distribution Width 15.4 % (9.3-17.3); White Blood Count 7.7 T/CUMM (4-12)
[2019-04-20] MEDS: INSULIN REGULAR 100 UNIT/ML SUBCUT SCH ×3 (06:25→17:48)
[2019-04-20 06:38] LABS: Calcium 7.8 MG/DL (8.5-10.1); Osmolality,Calculated 298.7 MOS/KG (273-304)
[2019-04-20 06:43] LABS: Anisocytosis Slight; Lymphocytes 4 % (20-55); Segmented Neutrophils 93 % (50-85); Total Cells Counted 100
[2019-04-20 06:44] LABS: Microcytosis 1+; Platelet Estimate Adequate
[2019-04-20] MEDS: FINASTERIDE 5 MG TABLET PO SCH (08:44)
[2019-04-20] MEDS: ASCORBIC ACID 500 MG TABLET PO SCH ×2 (08:44→21:20)
[2019-04-20] MEDS: TAMSULOSIN 0.4 MG CAPSULE PO SCH ×2 (08:44→21:21)
[2019-04-20] MEDS: AMIODARONE 200 MG TABLET PO SCH ×2 (08:45→21:21)
[2019-04-20] MEDS: LANSOPRAZOLE ODT 30 MG TABLET PER TUBE SCH (08:45)
[2019-04-20] MEDS: APIXABAN 2.5 MG TABLET PO SCH ×2 (08:45→21:21)
[2019-04-20] MEDS: ASPIRIN 325 MG TABLET PER TUBE SCH (08:45)
[2019-04-20] MEDS: METOPROLOL TARTRATE 25 MG TABLET PO SCH ×2 (08:46→21:20)
[2019-04-20] MEDS: methylPREDNISolone SOD SUC 40 MG/1 ML VIAL IV SCH (08:46)
[2019-04-20] MEDS: NICOTINE 7 MG/24 HR PATCH TRANSDERM SCH (08:57)
[2019-04-20] MEDS: CHLORHEXIDINE 0.12% ORAL RINSE 60 ML BOTTLE SWISH/SPIT SCH ×2 (08:59→21:30)
[2019-04-20] MEDS ORDERED: SODIUM CHLORIDE 0.9% 1,000 ML IV PRN ×2 (10:58→12:27)
[2019-04-20] MEDS ORDERED: ACETYLCYSTEINE 20% 800 MG/4 ML VIAL RESP TX ONE (11:02)
[2019-04-20] MEDS: ALBUTEROL 2.5 MG/3 ML NEB RESP TX PRN (11:13)
[2019-04-20] MEDS: DORNASE ALFA 2.5 MG/2.5 ML VIAL RESP TX SCH (19:33)
[2019-04-20] MEDS: SERTRALINE 25 MG TABLET PO SCH (21:21)
[2019-04-20] MEDS: ATORVASTATIN 40 MG TABLET PO SCH (21:21)
[2019-04-21] MEDS: ALBUTEROL/IPRATROPIUM 3 ML NEB RESP TX SCH ×7 (00:04→23:02)
[2019-04-21] MEDS: INSULIN REGULAR 100 UNIT/ML SUBCUT SCH ×4 (02:31→18:52)
[2019-04-21] MEDS: dilTIAZem Drip 125 MG/125 ML PREMIX IV SCH (02:31)
[2019-04-21] MEDS: MORPHINE 4 MG/1 ML VIAL IV PRN ×4 (04:05→21:58)
[2019-04-21 04:17] LABS: ABG HCO3 20.9 MMOL/L (20-26); ABG PCO2 36.9 MM HG (35-48); ABG PH 7.361 (7.35-7.45); ABG PO2 53.5 MM HG (80-95); ABG TCO2 19.1 MMOL/L (23-27); Allen Test Positive; Pt O2 Delivery Device Ventilator
[2019-04-21 04:32] LABS: Calcium 8.1 MG/DL (8.5-10.1); Osmolality,Calculated 298.5 MOS/KG (273-304)
[2019-04-21] MEDS: PHENYLEPHRINE DRIP 40 MG/250 ML PREMIX IV PRN ×2 (06:00→23:16)
[2019-04-21 06:01] LABS: Hematocrit 30.4 VOL% (42.0-52.0); Hemoglobin 9.9 GM/DL (14.0-18.0); Immature Granulocytes % 0.9 %; Immature Granulocytes Absolute 0.07 #; Lymphocytes # 0.2 10*3/uL (1.4-4.0); Lymphocytes % 2.9 % (21.2-54.2); Mean Corpuscular HGB Conc 32.6 GM/DL (32-36); Mean Corpuscular Volume 90.5 FL (87-102); Mean Platelet Volume 12.7 FL (9.6-12.0); Monocytes % 4.8 % (1.7-12.7); Neutrophils % 91.4 % (38.7-73.9); Platelet Count 139 T/CUMM (130-400); Red Blood Count 3.36 MC/CUMM (3.8-5.5); Red Cell Distribution Width 15.6 % (9.3-17.3)
[2019-04-21 06:29] LABS: Band Neutrophils 1 % (0-10); Hypochromasia 1+; Lymphocytes 1 % (20-55); Ovalocytes Slight; Segmented Neutrophils 95 % (50-85); Total Cells Counted 100
[2019-04-21 06:30] LABS: Microcytosis Slight; Platelet Estimate Adequate
[2019-04-21] MEDS ORDERED: MIDAZOLAM 2 MG/2 ML VIAL IV ONE (07:00)
[2019-04-21] MEDS: DORNASE ALFA 2.5 MG/2.5 ML VIAL RESP TX SCH ×2 (07:57→19:55)
[2019-04-21] MEDS: FINASTERIDE 5 MG TABLET PO SCH (10:30)
[2019-04-21] MEDS: ASCORBIC ACID 500 MG TABLET PO SCH ×2 (10:30→21:49)
[2019-04-21] MEDS: ASPIRIN 325 MG TABLET PER TUBE SCH (10:30)
[2019-04-21] MEDS: APIXABAN 2.5 MG TABLET PO SCH ×2 (10:30→21:48)
[2019-04-21] MEDS: AMIODARONE 200 MG TABLET PO SCH ×2 (10:30→21:46)
[2019-04-21] MEDS: NICOTINE 7 MG/24 HR PATCH TRANSDERM SCH (10:30)
[2019-04-21] MEDS: CHLORHEXIDINE 0.12% ORAL RINSE 60 ML BOTTLE SWISH/SPIT SCH ×2 (10:30→21:49)
[2019-04-21] MEDS: TAMSULOSIN 0.4 MG CAPSULE PO SCH ×2 (10:30→21:51)
[2019-04-21] MEDS: methylPREDNISolone SOD SUC 40 MG/1 ML VIAL IV SCH (10:30)
[2019-04-21] MEDS: LANSOPRAZOLE ODT 30 MG TABLET PER TUBE SCH (10:30)
[2019-04-21] MEDS: METOPROLOL TARTRATE 25 MG TABLET PO SCH ×2 (11:50→21:46)
[2019-04-21] MEDS: ALBUTEROL 2.5 MG/3 ML NEB RESP TX PRN ×2 (16:16→17:50)
[2019-04-21] MEDS ORDERED: METOPROLOL TARTRATE 5 MG/5 ML VIAL IV ONE (20:34)
[2019-04-21] MEDS: SERTRALINE 25 MG TABLET PO SCH (21:49)
[2019-04-21] MEDS: ATORVASTATIN 40 MG TABLET PO SCH (21:49)
[2019-04-22] MEDS: INSULIN REGULAR 100 UNIT/ML SUBCUT SCH ×4 (01:03→18:00)
[2019-04-22] MEDS: dilTIAZem Drip 125 MG/125 ML PREMIX IV SCH (02:16)
[2019-04-22] MEDS: ALBUTEROL/IPRATROPIUM 3 ML NEB RESP TX SCH ×6 (02:35→23:36)
[2019-04-22 03:23] LABS: Basophils % 0.2 % (0.0-0.8); Hematocrit 31.5 VOL% (42.0-52.0); Hemoglobin 10.2 GM/DL (14.0-18.0); Immature Granulocytes % 0.2 %; Immature Granulocytes Absolute 0.01 #; Lymphocytes # 0.2 10*3/uL (1.4-4.0); Lymphocytes % 3.3 % (21.2-54.2); Mean Corpuscular HGB Conc 32.4 GM/DL (32-36); Mean Corpuscular Volume 90.3 FL (87-102); Mean Platelet Volume 12.5 FL (9.6-12.0); Neutrophils % 91.3 % (38.7-73.9); Platelet Count 177 T/CUMM (130-400); Red Blood Count 3.49 MC/CUMM (3.8-5.5); Red Cell Distribution Width 15.4 % (9.3-17.3); White Blood Count 5.2 T/CUMM (4-12)
[2019-04-22] MEDS: MORPHINE 4 MG/1 ML VIAL IV PRN ×3 (03:37→22:23)
[2019-04-22] MEDS ORDERED: KETAMINE 500 MG/10 ML VIAL ONE (03:46)
[2019-04-22] MEDS ORDERED: ROCURONIUM 100 MG/10 ML VIAL IV ONE ×2 (03:47→03:55)
[2019-04-22 03:48] LABS: Calcium 8.4 MG/DL (8.5-10.1); Osmolality,Calculated 302.3 MOS/KG (273-304)
[2019-04-22] MEDS ORDERED: KETAMINE 500 MG/10 ML VIAL IV ONE (03:55)
[2019-04-22 04:26] LABS: Band Neutrophils 7 % (0-10); Lymphocytes 4 % (20-55); Segmented Neutrophils 85 % (50-85); Total Cells Counted 100
[2019-04-22 04:27] LABS: Platelet Estimate Adequate; Polychromasia Few
[2019-04-22] MEDS: PHENYLEPHRINE DRIP 40 MG/250 ML PREMIX IV PRN ×6 (05:06→14:50)
[2019-04-22] MEDS ORDERED: ALBUMIN 5% 12.5 GM/250 ML VIAL IV ONE ×2 (05:38)
[2019-04-22] MEDS ORDERED: ALBUMIN IV ONE (05:38)
[2019-04-22 05:40] LABS: ABG Base Excess -7.7 MMOL/L (-2.5-2.5); ABG Oxygen Saturation 88.3 % (95-100); ABG PCO2 49.8 MM HG (35-48); ABG PH 7.221 (7.35-7.45); ABG PO2 61.8 MM HG (80-95); ABG TCO2 21.5 MMOL/L (23-27)
[2019-04-22] MEDS ORDERED: ALBUMIN 25% 25 GM in PREMIX 1 EACH IV ONE (05:42)
[2019-04-22] MEDS ORDERED: DEXTROSE 10% 250 ML IV ONE (05:56)
[2019-04-22] MEDS: DEXTROSE 10% 250 ML BAG IV PRN ×2 (06:05→17:45)
[2019-04-22] MEDS ORDERED: LACTATED RINGERS 1,000 ML IV ONE ×2 (06:48→10:45)
[2019-04-22] MEDS: DORNASE ALFA 2.5 MG/2.5 ML VIAL RESP TX SCH ×2 (07:50→20:32)
[2019-04-22] MEDS ORDERED: NOREPINEPHRINE 4 MG/4 ML VIAL IV ONE (07:56)
[2019-04-22] MEDS: NOREPINEPHRINE 8 MG in SODIUM CHLORIDE 0.9% 242 ML IV PRN ×2 (08:02→15:05)
[2019-04-22] MEDS: METOPROLOL TARTRATE 25 MG TABLET PO SCH ×2 (09:30→22:23)
[2019-04-22] MEDS: AMIODARONE 200 MG TABLET PO SCH ×2 (09:30→22:22)
[2019-04-22] MEDS: APIXABAN 2.5 MG TABLET PO SCH ×2 (09:30→22:22)
[2019-04-22] MEDS: ASCORBIC ACID 500 MG TABLET PO SCH ×2 (09:30→22:22)
[2019-04-22] MEDS: FINASTERIDE 5 MG TABLET PO SCH (09:30)
[2019-04-22] MEDS: TAMSULOSIN 0.4 MG CAPSULE PO SCH ×2 (09:30→22:22)
[2019-04-22] MEDS: LANSOPRAZOLE ODT 30 MG TABLET PER TUBE SCH (09:30)
[2019-04-22] MEDS: ASPIRIN 325 MG TABLET PER TUBE SCH (09:30)
[2019-04-22] MEDS: NICOTINE 7 MG/24 HR PATCH TRANSDERM SCH (09:40)
[2019-04-22] MEDS: methylPREDNISolone SOD SUC 40 MG/1 ML VIAL IV SCH ×2 (09:40→17:10)
[2019-04-22] MEDS: CHLORHEXIDINE 0.12% ORAL RINSE 60 ML BOTTLE SWISH/SPIT SCH ×2 (09:45→22:36)
[2019-04-22] MEDS: DEXMEDETOMIDINE 200 MCG in SODIUM CHLORIDE 0.9% 48 ML IV PRN (09:50)
[2019-04-22] MEDS: PIPERACILLIN/TAZOBACTAM 3,375 MG in SODIUM CHLORIDE 0.9% 100 ML IV SCH ×2 (11:20→18:15)
[2019-04-22] MEDS: MICAFUNGIN 100 MG in SODIUM CHLORIDE 0.9% 100 ML IV SCH (11:30)
[2019-04-22] MEDS: PHENYLEPHRINE INJ 80 MG in SODIUM CHLORIDE 0.9% 492 ML IV PRN ×2 (16:45→20:50)
[2019-04-22] MEDS: NOREPINEPHRINE 16 MG in SODIUM CHLORIDE 0.9% 484 ML IV PRN (20:52)
[2019-04-22] MEDS: SERTRALINE 25 MG TABLET PO SCH (22:22)
[2019-04-22] MEDS: ATORVASTATIN 40 MG TABLET PO SCH (22:22)
[2019-04-23] MEDS: INSULIN REGULAR 100 UNIT/ML SUBCUT SCH ×4 (01:01→18:24)
[2019-04-23] MEDS: PHENYLEPHRINE INJ 80 MG in SODIUM CHLORIDE 0.9% 492 ML IV PRN ×6 (01:03→21:30)
[2019-04-23] MEDS: methylPREDNISolone SOD SUC 40 MG/1 ML VIAL IV SCH ×3 (01:03→17:20)
[2019-04-23] MEDS: DEXMEDETOMIDINE 200 MCG in SODIUM CHLORIDE 0.9% 48 ML IV PRN ×3 (02:00→21:12)
[2019-04-23] MEDS: dilTIAZem Drip 125 MG/125 ML PREMIX IV SCH (02:13)
[2019-04-23] MEDS: MORPHINE 4 MG/1 ML VIAL IV PRN ×3 (02:40→20:46)
[2019-04-23] MEDS: ONDANSETRON 4 MG/2 ML VIAL IV PRN (02:45)
[2019-04-23] MEDS ORDERED: ALBUMIN 5% 50 GM in PREMIX 1 EACH IV ONE (03:00)
[2019-04-23] MEDS: ALBUTEROL/IPRATROPIUM 3 ML NEB RESP TX SCH ×5 (03:55→19:37)
[2019-04-23] MEDS: PIPERACILLIN/TAZOBACTAM 3,375 MG in SODIUM CHLORIDE 0.9% 100 ML IV SCH (04:26)
[2019-04-23 04:35] LABS: Basophils % 0.5 % (0.0-0.8); Hematocrit 27.4 VOL% (42.0-52.0); Hemoglobin 8.6 GM/DL (14.0-18.0); Immature Granulocytes Absolute 0.06 #; Lymphocytes # 0.1 10*3/uL (1.4-4.0); Lymphocytes % 2.3 % (21.2-54.2); Mean Corpuscular HGB Conc 31.4 GM/DL (32-36); Mean Corpuscular Volume 92.6 FL (87-102); Mean Platelet Volume 11.8 FL (9.6-12.0); Neutrophils % 93.2 % (38.7-73.9); Platelet Count 163 T/CUMM (130-400); Red Blood Count 2.96 MC/CUMM (3.8-5.5); Red Cell Distribution Width 15.5 % (9.3-17.3); White Blood Count 5.7 T/CUMM (4-12)
[2019-04-23 04:41] LABS: ABG Base Excess -10.4 MMOL/L (-2.5-2.5); ABG HCO3 16.7 MMOL/L (20-26); ABG Oxygen Saturation 96.8 % (95-100); ABG PCO2 42.3 MM HG (35-48); ABG PH 7.215 (7.35-7.45); ABG PO2 100.6 MM HG (80-95)
[2019-04-23 04:55] LABS: Calcium 7.9 MG/DL (8.5-10.1); Osmolality,Calculated 302.7 MOS/KG (273-304)
[2019-04-23 05:10] LABS: Band Neutrophils 38 % (0-10); Hypochromasia Slight; Lymphocytes 3 % (20-55); Metamyelocytes 4 %; Platelet Estimate Normal; Segmented Neutrophils 52 % (50-85); Total Cells Counted 100
[2019-04-23] MEDS: NOREPINEPHRINE 16 MG in SODIUM CHLORIDE 0.9% 484 ML IV PRN ×2 (05:43→16:15)
[2019-04-23] MEDS: DEXTROSE 5% NACL 0.45% 1,000 ML IV SCH ×2 (06:37→17:05)
[2019-04-23] MEDS: DEXTROSE 10% 250 ML BAG IV PRN (07:05)
[2019-04-23] MEDS: DORNASE ALFA 2.5 MG/2.5 ML VIAL RESP TX SCH ×2 (07:54→19:37)
[2019-04-23] MEDS: TAMSULOSIN 0.4 MG CAPSULE PO SCH ×2 (09:00→20:40)
[2019-04-23] MEDS: METOPROLOL TARTRATE 25 MG TABLET PO SCH ×2 (09:00→20:41)
[2019-04-23] MEDS: APIXABAN 2.5 MG TABLET PO SCH (09:30)
[2019-04-23] MEDS: LANSOPRAZOLE ODT 30 MG TABLET PER TUBE SCH (09:30)
[2019-04-23] MEDS: FINASTERIDE 5 MG TABLET PO SCH (09:30)
[2019-04-23] MEDS: CHLORHEXIDINE 0.12% ORAL RINSE 60 ML BOTTLE SWISH/SPIT SCH ×2 (09:30→20:41)
[2019-04-23] MEDS: ASCORBIC ACID 500 MG TABLET PO SCH ×2 (09:30→20:40)
[2019-04-23] MEDS: NICOTINE 7 MG/24 HR PATCH TRANSDERM SCH (09:30)
[2019-04-23] MEDS: AMIODARONE 200 MG TABLET PO SCH ×2 (09:30→20:40)
[2019-04-23] MEDS: ASPIRIN 325 MG TABLET PER TUBE SCH (09:30)
[2019-04-23] MEDS ORDERED: SODIUM BICARBONATE 50 MEQ/50 ML VIAL IV ONE (10:30)
[2019-04-23] MEDS: MICAFUNGIN 100 MG in SODIUM CHLORIDE 0.9% 100 ML IV SCH (10:55)
[2019-04-23] MEDS: ESMOLOL 2,500 MG/250 ML PREMIX IV SCH (12:25)
[2019-04-23] MEDS: MEROPENEM 1,000 MG in SODIUM CHLORIDE 0.9% 100 ML IV SCH (12:30)
[2019-04-23] MEDS: NOREPINEPHRINE 8 MG in SODIUM CHLORIDE 0.9% 242 ML IV PRN (12:40)
[2019-04-23] MEDS ORDERED: NOREPINEPHRINE 4 MG/4 ML VIAL IV ONE (12:40)
[2019-04-23] MEDS: VANCOMYCIN INJ 1,000 MG in SODIUM CHLORIDE 0.9% 250 ML IV SCH (13:00)
[2019-04-23] MEDS: LEVOFLOXACIN INJ 750 MG in PREMIX 1 EACH IV SCH (14:15)
[2019-04-23] MEDS ORDERED: SODIUM BICARB IV SCH (15:30)
[2019-04-23] MEDS ORDERED: STERILE WATER IV SCH (15:30)
[2019-04-23] MEDS: ATORVASTATIN 40 MG TABLET PO SCH (20:40)
[2019-04-23] MEDS: SERTRALINE 25 MG TABLET PO SCH (20:40)
[2019-04-24] MEDS: ALBUTEROL/IPRATROPIUM 3 ML NEB RESP TX SCH ×7 (00:23→22:44)
[2019-04-24] MEDS: MEROPENEM 1,000 MG in SODIUM CHLORIDE 0.9% 100 ML IV SCH ×3 (01:15→23:50)
[2019-04-24] MEDS: methylPREDNISolone SOD SUC 40 MG/1 ML VIAL IV SCH ×3 (01:33→17:42)
[2019-04-24] MEDS: INSULIN REGULAR 100 UNIT/ML SUBCUT SCH ×5 (01:33→23:51)
[2019-04-24] MEDS: DEXMEDETOMIDINE 200 MCG in SODIUM CHLORIDE 0.9% 48 ML IV PRN (02:10)
[2019-04-24] MEDS: PHENYLEPHRINE INJ 80 MG in SODIUM CHLORIDE 0.9% 492 ML IV PRN ×4 (02:11→19:32)
[2019-04-24] MEDS: DEXTROSE 5% NACL 0.45% 1,000 ML IV SCH (03:14)
[2019-04-24] MEDS: NOREPINEPHRINE 16 MG in SODIUM CHLORIDE 0.9% 484 ML IV PRN (04:30)
[2019-04-24 04:58] LABS: Basophils % 0.3 % (0.0-0.8); Hematocrit 27.5 VOL% (42.0-52.0); Hemoglobin 8.6 GM/DL (14.0-18.0); Immature Granulocytes % 1.2 %; Immature Granulocytes Absolute 0.11 #; Lymphocytes # 0.2 10*3/uL (1.4-4.0); Mean Corpuscular HGB Conc 31.3 GM/DL (32-36); Mean Corpuscular Volume 92.6 FL (87-102); Mean Platelet Volume 11.2 FL (9.6-12.0); Monocytes % 3.8 % (1.7-12.7); Neutrophils % 92.7 % (38.7-73.9); Platelet Count 201 T/CUMM (130-400); Red Blood Count 2.97 MC/CUMM (3.8-5.5); Red Cell Distribution Width 15.9 % (9.3-17.3)
[2019-04-24 05:02] LABS: ABG Base Excess -10.4 MMOL/L (-2.5-2.5); ABG HCO3 16.1 MMOL/L (20-26); ABG Oxygen Saturation 95.4 % (95-100); ABG PCO2 43.5 MM HG (35-48); ABG PO2 82.3 MM HG (80-95); ABG TCO2 16.3 MMOL/L (23-27)
[2019-04-24 05:04] LABS: ABG PH 7.203 (7.35-7.45)
[2019-04-24 05:16] LABS: Calcium 7.9 MG/DL (8.5-10.1); Osmolality,Calculated 300.1 MOS/KG (273-304)
[2019-04-24 06:39] LABS: Anisocytosis 1+; Band Neutrophils 45 % (0-10); Lymphocytes 2 % (20-55); Platelet Estimate Normal; Segmented Neutrophils 49 % (50-85); Total Cells Counted 100
[2019-04-24 06:40] LABS: Acanthocytes 1+; Basophilic Stippling Slight; Poikilocytosis 1+
[2019-04-24] MEDS ORDERED: SODIUM BICARBONATE 50 MEQ/50 ML VIAL IV ONE (06:48)
[2019-04-24] MEDS: DEXTROSE 5% 1,000 ML IV SCH (07:25)
[2019-04-24] MEDS: DORNASE ALFA 2.5 MG/2.5 ML VIAL RESP TX SCH ×2 (07:44→19:38)
[2019-04-24] MEDS: MORPHINE 4 MG/1 ML VIAL IV PRN ×3 (08:22→20:29)
[2019-04-24] MEDS: FINASTERIDE 5 MG TABLET PO SCH (08:24)
[2019-04-24] MEDS: ASPIRIN 325 MG TABLET PER TUBE SCH (08:24)
[2019-04-24] MEDS: LANSOPRAZOLE ODT 30 MG TABLET PER TUBE SCH (08:24)
[2019-04-24] MEDS: TAMSULOSIN 0.4 MG CAPSULE PO SCH ×2 (08:24→20:32)
[2019-04-24] MEDS: METOPROLOL TARTRATE 25 MG TABLET PO SCH ×2 (08:25→20:33)
[2019-04-24] MEDS: AMIODARONE 200 MG TABLET PO SCH ×2 (08:25→20:32)
[2019-04-24] MEDS: ASCORBIC ACID 500 MG TABLET PO SCH ×2 (08:25→20:33)
[2019-04-24] MEDS: NICOTINE 7 MG/24 HR PATCH TRANSDERM SCH (08:27)
[2019-04-24] MEDS ORDERED: PANTOPRAZOLE 40 MG TABLET PO SCH (09:00)
[2019-04-24] MEDS: ESMOLOL 2,500 MG/250 ML PREMIX IV SCH (10:56)
[2019-04-24] MEDS: SODIUM BICARB INJ 50 MEQ in SODIUM CHLORIDE 0.45% 1,000 ML IV SCH ×3 (10:56→21:47)
[2019-04-24] MEDS ORDERED: ESMOLOL 2,500 MG/250 ML PREMIX IV PRN (11:00)
[2019-04-24] MEDS: DEXMEDETOMIDINE 400 MCG in SODIUM CHLORIDE 0.9% 96 ML IV PRN ×2 (11:43→21:18)
[2019-04-24] MEDS: CHLORHEXIDINE 0.12% ORAL RINSE 60 ML BOTTLE SWISH/SPIT SCH ×2 (11:44→20:34)
[2019-04-24] MEDS: VANCOMYCIN INJ 1,000 MG in SODIUM CHLORIDE 0.9% 250 ML IV SCH (13:16)
[2019-04-24] MEDS: MICAFUNGIN 100 MG in SODIUM CHLORIDE 0.9% 100 ML IV SCH (13:24)
[2019-04-24] MEDS: SERTRALINE 25 MG TABLET PO SCH (20:32)
[2019-04-24] MEDS: ATORVASTATIN 40 MG TABLET PO SCH (20:32)
[2019-04-25] MEDS ORDERED: ZALEPLON 5 MG CAPSULE PO PRN (00:05)
[2019-04-25] MEDS: MORPHINE 4 MG/1 ML VIAL IV PRN ×4 (00:12→17:13)
[2019-04-25] MEDS: methylPREDNISolone SOD SUC 40 MG/1 ML VIAL IV SCH ×3 (00:22→16:59)
[2019-04-25] MEDS: ALBUTEROL/IPRATROPIUM 3 ML NEB RESP TX SCH ×6 (03:15→23:07)
[2019-04-25 04:30] LABS: ABG Base Excess -7.8 MMOL/L (-2.5-2.5); ABG Oxygen Saturation 92.9 % (95-100); ABG PCO2 40.7 MM HG (35-48); ABG PH 7.268 (7.35-7.45); ABG PO2 83.7 MM HG (80-95); ABG TCO2 17.8 MMOL/L (23-27); Allen Test Positive; Pt O2 Delivery Device Ventilator
[2019-04-25] MEDS: DEXTROSE 5% 1,000 ML IV SCH (04:36)
[2019-04-25] MEDS: PHENYLEPHRINE INJ 80 MG in SODIUM CHLORIDE 0.9% 492 ML IV PRN ×3 (07:01→21:48)
[2019-04-25] MEDS: DEXMEDETOMIDINE 400 MCG in SODIUM CHLORIDE 0.9% 96 ML IV PRN ×2 (07:05→16:30)
[2019-04-25] MEDS: INSULIN REGULAR 100 UNIT/ML SUBCUT SCH ×3 (07:06→18:32)
[2019-04-25] MEDS: DORNASE ALFA 2.5 MG/2.5 ML VIAL RESP TX SCH ×2 (07:15→19:14)
[2019-04-25] MEDS: AMIODARONE 200 MG TABLET PO SCH (08:42)
[2019-04-25] MEDS: ASPIRIN 325 MG TABLET PER TUBE SCH (08:42)
[2019-04-25] MEDS: TAMSULOSIN 0.4 MG CAPSULE PO SCH ×2 (08:45→20:06)
[2019-04-25] MEDS: FINASTERIDE 5 MG TABLET PO SCH (08:45)
[2019-04-25] MEDS: LANSOPRAZOLE ODT 30 MG TABLET PER TUBE SCH (08:46)
[2019-04-25] MEDS: ASCORBIC ACID 500 MG TABLET PO SCH ×2 (08:46→20:06)
[2019-04-25] MEDS: METOPROLOL TARTRATE 25 MG TABLET PO SCH ×2 (08:47→20:06)
[2019-04-25] MEDS ORDERED: APIXABAN 5 MG TABLET PO SCH (09:00)
[2019-04-25] MEDS: SODIUM BICARB INJ 50 MEQ in SODIUM CHLORIDE 0.45% 1,000 ML IV SCH ×3 (09:03→19:33)
[2019-04-25] MEDS ORDERED: SODIUM CHLORIDE 0.9% 1,000 ML IV PRN (09:26)
[2019-04-25] MEDS: CHLORHEXIDINE 0.12% ORAL RINSE 60 ML BOTTLE SWISH/SPIT SCH ×2 (09:38→20:06)
[2019-04-25] MEDS: NICOTINE 7 MG/24 HR PATCH TRANSDERM SCH (09:42)
[2019-04-25 10:14] LABS: Calcium 7.2 MG/DL (8.5-10.1); Osmolality,Calculated 293.7 MOS/KG (273-304)
[2019-04-25] MEDS: MICAFUNGIN 100 MG in SODIUM CHLORIDE 0.9% 100 ML IV SCH (10:24)
[2019-04-25 11:29] LABS: Basophils # 0.1 10*3/uL (0.0-0.2); Basophils % 0.3 % (0.0-0.8); Hematocrit 25.2 VOL% (42.0-52.0); Hemoglobin 7.8 GM/DL (14.0-18.0); Immature Granulocytes % 0.8 %; Immature Granulocytes Absolute 0.15 #; Lymphocytes # 0.3 10*3/uL (1.4-4.0); Lymphocytes % 1.5 % (21.2-54.2); Mean Platelet Volume 11.5 FL (9.6-12.0); Monocytes % 3.4 % (1.7-12.7); Platelet Count 146 T/CUMM (130-400); Red Blood Count 2.68 MC/CUMM (3.8-5.5); Red Cell Distribution Width 16.4 % (9.3-17.3); White Blood Count 17.8 T/CUMM (4-12)
[2019-04-25 11:33] LABS: Band Neutrophils 3 % (0-10); Lymphocytes 2 % (20-55); Segmented Neutrophils 91 % (50-85); Total Cells Counted 100
[2019-04-25 11:34] LABS: Hypochromasia 1+; Platelet Estimate Adequate
[2019-04-25] MEDS: MEROPENEM 1,000 MG in SODIUM CHLORIDE 0.9% 100 ML IV SCH (13:42)
[2019-04-25] MEDS: VANCOMYCIN INJ 1,000 MG in SODIUM CHLORIDE 0.9% 250 ML IV SCH (14:24)
[2019-04-25] MEDS: LEVOFLOXACIN INJ 750 MG in PREMIX 1 EACH IV SCH (15:26)
[2019-04-25] MEDS: ATORVASTATIN 40 MG TABLET PO SCH (20:06)
[2019-04-25] MEDS: SERTRALINE 25 MG TABLET PO SCH (20:06)
[2019-04-26] MEDS: DEXTROSE 5% 1,000 ML IV SCH ×3 (00:43→21:32)
[2019-04-26] MEDS: INSULIN REGULAR 100 UNIT/ML SUBCUT SCH ×4 (00:44→18:22)
[2019-04-26] MEDS: methylPREDNISolone SOD SUC 40 MG/1 ML VIAL IV SCH ×3 (00:54→17:13)
[2019-04-26] MEDS: MEROPENEM 1,000 MG in SODIUM CHLORIDE 0.9% 100 ML IV SCH ×2 (00:54→12:09)
[2019-04-26] MEDS: MORPHINE 4 MG/1 ML VIAL IV PRN ×2 (00:55→15:05)
[2019-04-26] MEDS: SODIUM BICARB INJ 50 MEQ in SODIUM CHLORIDE 0.45% 1,000 ML IV SCH ×4 (01:26→15:08)
[2019-04-26] MEDS: DEXMEDETOMIDINE 400 MCG in SODIUM CHLORIDE 0.9% 96 ML IV PRN (01:37)
[2019-04-26] MEDS: ALBUTEROL/IPRATROPIUM 3 ML NEB RESP TX SCH ×6 (02:29→23:59)
[2019-04-26 04:03] LABS: Basophils # 0.1 10*3/uL (0.0-0.2); Basophils % 0.4 % (0.0-0.8); Hematocrit 30.2 VOL% (42.0-52.0); Immature Granulocytes % 1.2 %; Immature Granulocytes Absolute 0.23 #; Lymphocytes # 0.2 10*3/uL (1.4-4.0); Lymphocytes % 1.2 % (21.2-54.2); Mean Corpuscular HGB Conc 31.8 GM/DL (32-36); Mean Corpuscular Volume 91.8 FL (87-102); Mean Platelet Volume 11.7 FL (9.6-12.0); Monocytes % 3.2 % (1.7-12.7); Platelet Count 168 T/CUMM (130-400); Red Cell Distribution Width 15.6 % (9.3-17.3); White Blood Count 19.6 T/CUMM (4-12)
[2019-04-26 04:03] LABS: ABG Base Excess -11.1 MMOL/L (-2.5-2.5); ABG HCO3 16.2 MMOL/L (20-26); ABG Oxygen Saturation 91.5 % (95-100); ABG PCO2 41.5 MM HG (35-48); ABG TCO2 17.5 MMOL/L (23-27); Allen Test Positive; Pt O2 Delivery Device Ventilator
[2019-04-26 04:05] LABS: ABG PH 7.209 (7.35-7.45)
[2019-04-26 04:25] LABS: Red Blood Count 3.29 MC/CUMM (3.8-5.5)
[2019-04-26 04:26] LABS: Hemoglobin 9.6 GM/DL (14.0-18.0)
[2019-04-26 04:56] LABS: Calcium 7.4 MG/DL (8.5-10.1)
[2019-04-26 05:10] LABS: Band Neutrophils 3 % (0-10); Lymphocytes 1 % (20-55); Nucleated Red Blood Cells 1 (0-5); Ovalocytes 3+; Platelet Estimate Normal; Segmented Neutrophils 93 % (50-85); Total Cells Counted 100
[2019-04-26] MEDS: PHENYLEPHRINE INJ 80 MG in SODIUM CHLORIDE 0.9% 492 ML IV PRN ×3 (05:20→18:31)
[2019-04-26] MEDS ORDERED: fentaNYL INJ 1,250 MCG in SODIUM CHLORIDE 0.9% 225 ML IV PRN (06:52)
[2019-04-26] MEDS ORDERED: SODIUM BICARBONATE 50 MEQ/50 ML VIAL IV ONE ×2 (07:42→16:51)
[2019-04-26] MEDS: DORNASE ALFA 2.5 MG/2.5 ML VIAL RESP TX SCH ×2 (07:48→20:38)
[2019-04-26] MEDS: ASPIRIN 325 MG TABLET PER TUBE SCH (08:19)
[2019-04-26] MEDS: ASCORBIC ACID 500 MG TABLET PO SCH ×2 (08:20→21:30)
[2019-04-26] MEDS: AMIODARONE 200 MG TABLET PO SCH (08:21)
[2019-04-26] MEDS: TAMSULOSIN 0.4 MG CAPSULE PO SCH ×2 (08:23→21:30)
[2019-04-26] MEDS: CHLORHEXIDINE 0.12% ORAL RINSE 60 ML BOTTLE SWISH/SPIT SCH ×2 (08:24→21:48)
[2019-04-26] MEDS: FINASTERIDE 5 MG TABLET PO SCH (08:24)
[2019-04-26] MEDS: LANSOPRAZOLE ODT 30 MG TABLET PER TUBE SCH (08:24)
[2019-04-26] MEDS: NICOTINE 7 MG/24 HR PATCH TRANSDERM SCH (08:24)
[2019-04-26] MEDS ORDERED: ALBUMIN 5% 12.5 GM/250 ML VIAL IV ONE (09:01)
[2019-04-26] MEDS ORDERED: ALBUMIN 5% 25 GM in PREMIX 1 EACH IV ONE (09:04)
[2019-04-26] MEDS: METOPROLOL TARTRATE 25 MG TABLET PO SCH ×2 (09:33→21:30)
[2019-04-26] MEDS: MIDAZOLAM 2 MG/2 ML VIAL IV PRN ×4 (10:05→17:13)
[2019-04-26] MEDS ORDERED: FUROSEMIDE 40 MG/4 ML VIAL IV ONE (10:29)
[2019-04-26] MEDS: MICAFUNGIN 100 MG in SODIUM CHLORIDE 0.9% 100 ML IV SCH (10:55)
[2019-04-26] MEDS: METOCLOPRAMIDE 10 MG/2 ML VIAL IV SCH ×2 (13:35→21:31)
[2019-04-26 16:20] LABS: ABG Base Excess -10.5 MMOL/L (-2.5-2.5); ABG HCO3 15.9 MMOL/L (20-26); ABG Oxygen Saturation 78.2 % (95-100); ABG PCO2 54.4 MM HG (35-48); ABG PO2 48.5 MM HG (80-95); ABG TCO2 17.8 MMOL/L (23-27); Allen Test Positive; Pt O2 Delivery Device Ventilator
[2019-04-26 16:24] LABS: ABG PH 7.146 (7.35-7.45)
[2019-04-26] MEDS: ATORVASTATIN 40 MG TABLET PO SCH (21:31)
[2019-04-26] MEDS: SERTRALINE 25 MG TABLET PO SCH (21:31)
[2019-04-27] MEDS: INSULIN REGULAR 100 UNIT/ML SUBCUT SCH ×4 (00:13→18:44)
[2019-04-27] MEDS: SODIUM BICARB INJ 50 MEQ in SODIUM CHLORIDE 0.45% 1,000 ML IV SCH ×3 (00:13→11:50)
[2019-04-27] MEDS: MEROPENEM 1,000 MG in SODIUM CHLORIDE 0.9% 100 ML IV SCH ×2 (00:26→11:51)
[2019-04-27] MEDS: methylPREDNISolone SOD SUC 40 MG/1 ML VIAL IV SCH ×3 (00:26→18:57)
[2019-04-27] MEDS: PHENYLEPHRINE INJ 80 MG in SODIUM CHLORIDE 0.9% 492 ML IV PRN ×3 (00:27→14:39)
[2019-04-27] MEDS: MORPHINE 4 MG/1 ML VIAL IV PRN (01:06)
[2019-04-27] MEDS: ALBUTEROL/IPRATROPIUM 3 ML NEB RESP TX SCH ×6 (03:22→23:42)
[2019-04-27 04:22] LABS: ABG Base Excess -8.3 MMOL/L (-2.5-2.5); ABG HCO3 17.5 MMOL/L (20-26); ABG Oxygen Saturation 85.4 % (95-100); ABG PH 7.233 (7.35-7.45); ABG TCO2 17.8 MMOL/L (23-27); Allen Test Positive; Pt O2 Delivery Device Ventilator
[2019-04-27] MEDS: METOCLOPRAMIDE 10 MG/2 ML VIAL IV SCH ×3 (06:10→21:53)
[2019-04-27 07:09] LABS: Basophils # 0.1 10*3/uL (0.0-0.2); Basophils % 0.6 % (0.0-0.8); Hematocrit 28.3 VOL% (42.0-52.0); Hemoglobin 9.3 GM/DL (14.0-18.0); Immature Granulocytes % 0.8 %; Immature Granulocytes Absolute 0.12 #; Lymphocytes # 0.3 10*3/uL (1.4-4.0); Lymphocytes % 1.6 % (21.2-54.2); Mean Corpuscular HGB Conc 32.9 GM/DL (32-36); Mean Corpuscular Volume 91.6 FL (87-102); Mean Platelet Volume 12.7 FL (9.6-12.0); Monocytes % 2.1 % (1.7-12.7); NRBC # 0.02 10*3/uL; Neutrophils % 94.9 % (38.7-73.9); Red Blood Count 3.09 MC/CUMM (3.8-5.5); White Blood Count 15.5 T/CUMM (4-12)
[2019-04-27 07:24] LABS: Calcium 7.1 MG/DL (8.5-10.1)
[2019-04-27 07:27] LABS: Platelet Count 100 T/CUMM (130-400)
[2019-04-27 07:32] LABS: Band Neutrophils 5 % (0-10); Burr Cells Slight; Ovalocytes Slight; Platelet Estimate Decreased; Segmented Neutrophils 94 % (50-85); Total Cells Counted 100
[2019-04-27] MEDS: DORNASE ALFA 2.5 MG/2.5 ML VIAL RESP TX SCH ×2 (08:08→19:46)
[2019-04-27] MEDS: FINASTERIDE 5 MG TABLET PO SCH (09:03)
[2019-04-27] MEDS: AMIODARONE 200 MG TABLET PO SCH (09:03)
[2019-04-27] MEDS: ASPIRIN 325 MG TABLET PER TUBE SCH (09:03)
[2019-04-27] MEDS: NICOTINE 7 MG/24 HR PATCH TRANSDERM SCH (09:03)
[2019-04-27] MEDS: TAMSULOSIN 0.4 MG CAPSULE PO SCH ×2 (09:04→21:42)
[2019-04-27] MEDS: METOPROLOL TARTRATE 25 MG TABLET PO SCH ×2 (09:04→21:43)
[2019-04-27] MEDS: PANTOPRAZOLE 40 MG VIAL IV SCH ×2 (09:08→21:44)
[2019-04-27] MEDS: CHLORHEXIDINE 0.12% ORAL RINSE 60 ML BOTTLE SWISH/SPIT SCH ×2 (09:13→21:43)
[2019-04-27] MEDS: ASCORBIC ACID 500 MG TABLET PO SCH ×2 (09:14→21:44)
[2019-04-27] MEDS: MICAFUNGIN 100 MG in SODIUM CHLORIDE 0.9% 100 ML IV SCH (11:30)
[2019-04-27] MEDS ORDERED: ALBUMIN 25% 25 GM in PREMIX 1 EACH IV ONE (11:30)
[2019-04-27] MEDS ORDERED: FUROSEMIDE 40 MG/4 ML VIAL IV ONE (13:40)
[2019-04-27] MEDS: ALBUMIN 5% 12.5 GM in PREMIX 1 EACH IV SCH ×2 (13:56→14:58)
[2019-04-27] MEDS: LEVOFLOXACIN INJ 750 MG in PREMIX 1 EACH IV SCH (14:08)
[2019-04-27] MEDS: FAT EMULSION 20% 250 ML IV SCH (15:48)
[2019-04-27] MEDS ORDERED: DEXTROSE 10% 1,000 ML IV PRN (17:00)
[2019-04-27] MEDS: SODIUM BICARB IV SCH (18:43)
[2019-04-27] MEDS: MULTIVITAMIN IV SCH (18:43)
[2019-04-27] MEDS: [UNRECOGNIZED DRUG - OTHER] IV SCH (18:43)
[2019-04-27] MEDS: TRACE ELEMENTS IV SCH (18:43)
[2019-04-27] MEDS: ATORVASTATIN 40 MG TABLET PO SCH (21:43)
[2019-04-27] MEDS: SERTRALINE 25 MG TABLET PO SCH (21:44)
[2019-04-28] MEDS: INSULIN REGULAR 100 UNIT/ML SUBCUT SCH ×4 (00:39→19:34)
[2019-04-28] MEDS: MEROPENEM 1,000 MG in SODIUM CHLORIDE 0.9% 100 ML IV SCH ×2 (00:40→14:24)
[2019-04-28] MEDS: methylPREDNISolone SOD SUC 40 MG/1 ML VIAL IV SCH ×3 (00:40→17:49)
[2019-04-28] MEDS: PHENYLEPHRINE INJ 80 MG in SODIUM CHLORIDE 0.9% 492 ML IV PRN ×2 (01:03→11:18)
[2019-04-28] MEDS: MORPHINE 4 MG/1 ML VIAL IV PRN (01:26)
[2019-04-28 03:57] LABS: ABG Base Excess -8.5 MMOL/L (-2.5-2.5); ABG HCO3 17.5 MMOL/L (20-26); ABG Oxygen Saturation 97.1 % (95-100); ABG PCO2 49.8 MM HG (35-48); ABG TCO2 18.6 MMOL/L (23-27); Allen Test Positive; Pt O2 Delivery Device Ventilator
[2019-04-28] MEDS: ALBUTEROL/IPRATROPIUM 3 ML NEB RESP TX SCH ×6 (04:15→23:40)
[2019-04-28 04:50] LABS: Prealbumin 11.1 MG/DL (20-40)
[2019-04-28 04:56] LABS: Basophils % 0.1 % (0.0-0.8); Hematocrit 21.9 VOL% (42.0-52.0); Immature Granulocytes % 1.8 %; Immature Granulocytes Absolute 0.24 #; Lymphocytes # 0.2 10*3/uL (1.4-4.0); Lymphocytes % 1.5 % (21.2-54.2); Mean Corpuscular HGB Conc 32.4 GM/DL (32-36); Mean Platelet Volume 12.9 FL (9.6-12.0); NRBC # 0.05 10*3/uL; Neutrophils % 94.6 % (38.7-73.9); White Blood Count 13.6 T/CUMM (4-12)
[2019-04-28 05:23] LABS: Platelet Count 44 T/CUMM (130-400); Red Blood Count 2.38 MC/CUMM (3.8-5.5)
[2019-04-28 05:24] LABS: Hemoglobin 7.1 GM/DL (14.0-18.0)
[2019-04-28 05:36] LABS: Myelocytes 1 %; Platelet Estimate Decreased; Polychromasia Few; Segmented Neutrophils 97 % (50-85); Total Cells Counted 100
[2019-04-28] MEDS: METOCLOPRAMIDE 10 MG/2 ML VIAL IV SCH ×3 (06:31→22:39)
[2019-04-28] MEDS: DORNASE ALFA 2.5 MG/2.5 ML VIAL RESP TX SCH ×2 (07:16→20:42)
[2019-04-28 07:46] LABS: Calcium 7.1 MG/DL (8.5-10.1); Osmolality,Calculated 290.2 MOS/KG (273-304)
[2019-04-28] MEDS: METOPROLOL TARTRATE 25 MG TABLET PO SCH ×2 (09:24→21:50)
[2019-04-28] MEDS: TAMSULOSIN 0.4 MG CAPSULE PO SCH ×2 (09:24→21:50)
[2019-04-28] MEDS: AMIODARONE 200 MG TABLET PO SCH (09:24)
[2019-04-28] MEDS: ASCORBIC ACID 500 MG TABLET PO SCH ×2 (09:24→21:50)
[2019-04-28] MEDS: CHLORHEXIDINE 0.12% ORAL RINSE 60 ML BOTTLE SWISH/SPIT SCH ×2 (09:24→21:50)
[2019-04-28] MEDS: ASPIRIN 325 MG TABLET PER TUBE SCH (09:24)
[2019-04-28] MEDS: FINASTERIDE 5 MG TABLET PO SCH (09:24)
[2019-04-28] MEDS: PANTOPRAZOLE 40 MG VIAL IV SCH ×2 (09:25→17:46)
[2019-04-28] MEDS: NICOTINE 7 MG/24 HR PATCH TRANSDERM SCH (09:25)
[2019-04-28] MEDS: MICAFUNGIN 100 MG in SODIUM CHLORIDE 0.9% 100 ML IV SCH (11:14)
[2019-04-28] MEDS ORDERED: SODIUM CHLORIDE 0.9% 1,000 ML IV PRN ×2 (13:48→14:05)
[2019-04-28] MEDS ORDERED: FUROSEMIDE 40 MG/4 ML VIAL IV ONE (13:52)
[2019-04-28] MEDS: FAT EMULSION 20% 250 ML IV SCH (14:27)
[2019-04-28] MEDS: TRACE ELEMENTS IV SCH (17:51)
[2019-04-28] MEDS: SODIUM BICARB IV SCH (17:51)
[2019-04-28] MEDS: MULTIVITAMIN IV SCH (17:51)
[2019-04-28] MEDS: [UNRECOGNIZED DRUG - OTHER] IV SCH (17:51)
[2019-04-28] MEDS: ATORVASTATIN 40 MG TABLET PO SCH (21:50)
[2019-04-28] MEDS: SERTRALINE 25 MG TABLET PO SCH (21:50)
[2019-04-29] MEDS ORDERED: FUROSEMIDE 40 MG/4 ML VIAL IV ONE (00:30)
[2019-04-29] MEDS: INSULIN REGULAR 100 UNIT/ML SUBCUT SCH ×5 (00:54→23:46)
[2019-04-29] MEDS: MEROPENEM 1,000 MG in SODIUM CHLORIDE 0.9% 100 ML IV SCH ×2 (00:55→11:54)
[2019-04-29] MEDS: methylPREDNISolone SOD SUC 40 MG/1 ML VIAL IV SCH ×3 (00:55→16:40)
[2019-04-29] MEDS: MORPHINE 4 MG/1 ML VIAL IV PRN ×2 (01:18→09:38)
[2019-04-29] MEDS: ALBUTEROL/IPRATROPIUM 3 ML NEB RESP TX SCH ×6 (03:20→23:34)
[2019-04-29 03:23] LABS: ABG Base Excess -8.6 MMOL/L (-2.5-2.5); ABG HCO3 17.4 MMOL/L (20-26); ABG Oxygen Saturation 92.7 % (95-100); ABG PCO2 43.2 MM HG (35-48); ABG PO2 65.2 MM HG (80-95); ABG TCO2 17.2 MMOL/L (23-27); Allen Test Positive; Pt O2 Delivery Device Ventilator
[2019-04-29] MEDS: PANTOPRAZOLE 40 MG VIAL IV SCH ×2 (04:59→16:28)
[2019-04-29] MEDS: METOCLOPRAMIDE 10 MG/2 ML VIAL IV SCH ×3 (05:08→21:44)
[2019-04-29 06:20] LABS: Basophils # 0.1 10*3/uL (0.0-0.2); Basophils % 0.7 % (0.0-0.8); Hematocrit 28.9 VOL% (42.0-52.0); Hemoglobin 9.7 GM/DL (14.0-18.0); Immature Granulocytes % 2.9 %; Immature Granulocytes Absolute 0.51 #; Lymphocytes # 0.3 10*3/uL (1.4-4.0); Lymphocytes % 1.5 % (21.2-54.2); Mean Corpuscular HGB Conc 33.6 GM/DL (32-36); Mean Corpuscular Volume 92.3 FL (87-102); Monocytes % 1.5 % (1.7-12.7); NRBC # 0.06 10*3/uL; Neutrophils % 93.4 % (38.7-73.9); Platelet Count 87 T/CUMM (130-400); Red Blood Count 3.13 MC/CUMM (3.8-5.5); Red Cell Distribution Width 15.9 % (9.3-17.3); White Blood Count 17.5 T/CUMM (4-12)
[2019-04-29 06:40] LABS: Band Neutrophils 5 % (0-10); Hypochromasia 1+; Lymphocytes 3 % (20-55); Nucleated Red Blood Cells 1 (0-5); Platelet Estimate Decreased; Segmented Neutrophils 91 % (50-85); Total Cells Counted 100
[2019-04-29 07:12] LABS: Calcium 7.4 MG/DL (8.5-10.1); Osmolality,Calculated 291.7 MOS/KG (273-304)
[2019-04-29 07:22] LABS: ABG PH 7.196 (7.35-7.45)
[2019-04-29] MEDS: DORNASE ALFA 2.5 MG/2.5 ML VIAL RESP TX SCH ×2 (07:37→20:34)
[2019-04-29] MEDS: TAMSULOSIN 0.4 MG CAPSULE PO SCH ×2 (08:34→21:44)
[2019-04-29] MEDS: NICOTINE 7 MG/24 HR PATCH TRANSDERM SCH (08:34)
[2019-04-29] MEDS: METOPROLOL TARTRATE 25 MG TABLET PO SCH ×2 (08:34→21:43)
[2019-04-29] MEDS: ASPIRIN 325 MG TABLET PER TUBE SCH (08:35)
[2019-04-29] MEDS: ASCORBIC ACID 500 MG TABLET PO SCH ×2 (08:35→21:43)
[2019-04-29] MEDS: FINASTERIDE 5 MG TABLET PO SCH (08:35)
[2019-04-29] MEDS: CHLORHEXIDINE 0.12% ORAL RINSE 60 ML BOTTLE SWISH/SPIT SCH ×2 (08:35→21:44)
[2019-04-29] MEDS: AMIODARONE 200 MG TABLET PO SCH (08:35)
[2019-04-29] MEDS: MICAFUNGIN 100 MG in SODIUM CHLORIDE 0.9% 100 ML IV SCH (10:58)
[2019-04-29] MEDS: FAT EMULSION 20% 250 ML IV SCH (13:14)
[2019-04-29] MEDS: LEVOFLOXACIN INJ 750 MG in PREMIX 1 EACH IV SCH (13:14)
[2019-04-29] MEDS: MULTIVITAMIN IV SCH (16:39)
[2019-04-29] MEDS: [UNRECOGNIZED DRUG - OTHER] IV SCH (16:39)
[2019-04-29] MEDS: TRACE ELEMENTS IV SCH (16:39)
[2019-04-29] MEDS: SODIUM BICARB IV SCH (16:39)
[2019-04-29] MEDS ORDERED: MORPHINE 4 MG/1 ML VIAL IV PRN (17:15)
[2019-04-29] MEDS: ATORVASTATIN 40 MG TABLET PO SCH (21:43)
[2019-04-29] MEDS: SERTRALINE 25 MG TABLET PO SCH (21:44)
[2019-04-30] MEDS: MEROPENEM 1,000 MG in SODIUM CHLORIDE 0.9% 100 ML IV SCH ×2 (01:09→11:49)
[2019-04-30] MEDS: methylPREDNISolone SOD SUC 40 MG/1 ML VIAL IV SCH ×2 (01:16→08:46)
[2019-04-30] MEDS: PANTOPRAZOLE 40 MG VIAL IV SCH (03:15)
[2019-04-30 04:01] LABS: ABG Base Excess -8.3 MMOL/L (-2.5-2.5); ABG HCO3 17.7 MMOL/L (20-26); ABG Oxygen Saturation 91.6 % (95-100); ABG PCO2 44.4 MM HG (35-48); ABG PO2 69.5 MM HG (80-95); ABG TCO2 17.5 MMOL/L (23-27); Allen Test Positive; Pt O2 Delivery Device Ventilator
[2019-04-30] MEDS: ALBUTEROL/IPRATROPIUM 3 ML NEB RESP TX SCH ×3 (04:08→10:33)
[2019-04-30 06:08] LABS: Basophils # 0.1 10*3/uL (0.0-0.2); Basophils % 0.6 % (0.0-0.8); Hematocrit 29.1 VOL% (42.0-52.0); Hemoglobin 9.9 GM/DL (14.0-18.0); Immature Granulocytes % 1.5 %; Lymphocytes # 0.2 10*3/uL (1.4-4.0); Lymphocytes % 0.7 % (21.2-54.2); Mean Corpuscular Volume 89.8 FL (87-102); Mean Platelet Volume 12.6 FL (9.6-12.0); Monocytes % 2.1 % (1.7-12.7); NRBC # 0.04 10*3/uL; Neutrophils % 95.1 % (38.7-73.9); Platelet Count 47 T/CUMM (130-400); Red Blood Count 3.24 MC/CUMM (3.8-5.5); Red Cell Distribution Width 16.2 % (9.3-17.3); White Blood Count 20.2 T/CUMM (4-12)
[2019-04-30 06:24] LABS: Calcium 7.5 MG/DL (8.5-10.1); Osmolality,Calculated 292.8 MOS/KG (273-304)
[2019-04-30] MEDS: METOCLOPRAMIDE 10 MG/2 ML VIAL IV SCH ×2 (06:44→14:47)
[2019-04-30] MEDS: INSULIN REGULAR 100 UNIT/ML SUBCUT SCH ×2 (06:44→13:34)
[2019-04-30 07:18] LABS: Band Neutrophils 23 % (0-10); Lymphocytes 2 % (20-55); Nucleated Red Blood Cells 1 (0-5); Segmented Neutrophils 73 % (50-85); Total Cells Counted 100
[2019-04-30 07:19] LABS: Anisocytosis 1+; Platelet Estimate Decreased; Poikilocytosis 1+
[2019-04-30 07:20] LABS: Macrocytosis Slight
[2019-04-30] MEDS: DORNASE ALFA 2.5 MG/2.5 ML VIAL RESP TX SCH (07:39)
[2019-04-30] MEDS ORDERED: PHENYLEPHRINE DRIP 40 MG/250 ML PREMIX IV PRN (07:50)
[2019-04-30] MEDS ORDERED: PHENYLEPHRINE DRIP 40 MG/250 ML PREMIX IV ONE (07:51)
[2019-04-30] MEDS: ASCORBIC ACID 500 MG TABLET PO SCH (08:46)
[2019-04-30] MEDS: AMIODARONE 200 MG TABLET PO SCH (08:46)
[2019-04-30] MEDS: TAMSULOSIN 0.4 MG CAPSULE PO SCH (08:46)
[2019-04-30] MEDS: NICOTINE 7 MG/24 HR PATCH TRANSDERM SCH (08:46)
[2019-04-30] MEDS: CHLORHEXIDINE 0.12% ORAL RINSE 60 ML BOTTLE SWISH/SPIT SCH (08:46)
[2019-04-30] MEDS: FINASTERIDE 5 MG TABLET PO SCH (08:46)
[2019-04-30] MEDS: METOPROLOL TARTRATE 25 MG TABLET PO SCH (08:47)
[2019-04-30] MEDS: ASPIRIN 325 MG TABLET PER TUBE SCH (08:47)
[2019-04-30] MEDS ORDERED: NOREPINEPHRINE 8 MG in SODIUM CHLORIDE 0.9% 242 ML IV PRN (09:55)
[2019-04-30] MEDS ORDERED: LACTATED RINGERS 500 ML IV ONE (09:55)
[2019-04-30] MEDS ORDERED: NOREPINEPHRINE 4 MG/4 ML VIAL IV ONE (09:57)
[2019-04-30] MEDS ORDERED: LORazepam 2 MG/1 ML VIAL IV PRN (14:08)
[2019-04-30] MEDS ORDERED: MORPHINE 4 MG/1 ML VIAL IV PRN (14:08)
[2019-04-30 15:52] VITALS: BP 57/32
== END 2019-04-30 17:21 | disposition expired | DRG 235 ==
LOC: N.SDSINP 05:11 → N.CVR 07:11 → N.ICU 03-24 14:38 → N.TELES 03-25 13:19 → N.ICU 03-28 19:36
PROVIDERS: ADMIT Thoracic Surgery (Cardiothoracic Vascular Surgery); ATTEND Thoracic Surgery (Cardiothoracic Vascular Surgery)